=== PATIENT | female | born 1950 | race Caucasian/White ===

== ENCOUNTER → 2016-07-13 | Outpatient (CLI) | payer MEDICARE, OTHER ==
--- NOTE | 2016-07-13 12:25 | US ---
EXAMINATION TYPE: US venous doppler duplex LE DATE OF EXAM: 07/13/2016 10:51 AM COMPARISON: NONE CLINICAL HISTORY: BLE Edema R60.0. Left calf numbness and swelling. SIDE PERFORMED: Bilateral TECHNIQUE: The lower extremity deep venous system is examined utilizing real time linear array sonog deacon with graded compression, doppler sonography and color-flow sonography. VESSELS IMAGED: Common Femoral Vein Deep Femoral Vein Greater Saphenous Vein * Femoral Vein Popliteal Vein Small Saphenous Vein * Proximal Calf Veins (* superficial vessels) Right Leg: Negative for DVT Left Leg: Negative for DVT Grayscale, color Doppler, spectral doppler imaging performed of the deep veins of the lower extremiti es. There is normal flow, compressibility, vascular waveforms bilaterally. IMPRESSION: 1. No diagnostic evidence of DVT.
== END | disposition home or self-care (01) ==
LOC: RADUSWWP 10:08
PROVIDERS: ATTEND Family Medicine
DX: R60.0 Localized edema (principal)
CPT/HCPCS: 93970

== ENCOUNTER → 2016-08-01 | Outpatient (CLI) | payer MEDICARE, OTHER ==
--- NOTE | 2016-08-02 12:49 | MM ---
Reason for exam: screening (asymptomatic). Last mammogram was performed 2 years and 3 months ago. History: Patient is postmenopausal. Physical Findings: A clinical breast exam by your physician is recommended on an annual basis and results should be correlated with mammographic findings. MG Screening Mammo w CAD Bilateral CC and MLO view(s) were taken. Prior study comparison: April 22, 2014, bilateral MG screening mammo w CAD. Finding: There are suspicious heterogeneous, grouped calcifications in the 6 o'clock posterior position of the left breast. May be antiperspirant, repeat CC views. New finding since April 22, 2014. ASSESSMENT: Incomplete: need additional imaging evaluation, BI-RAD 0 RECOMMENDATION: Special view mammogram of both breasts. If lesion persists on supplemental views, image directed ultrasound is recommended. [facility] will attempt to contact patient to return for supplemental views and ultrasound if indicated.
== END | disposition home or self-care (01) ==
LOC: RADMAMWWP 09:51
PROVIDERS: ATTEND Family Medicine
DX: Z12.31 Encounter for screening mammogram for malignant neoplasm of breast (principal)

== ENCOUNTER → 2016-08-04 | Outpatient (CLI) | payer MEDICARE, OTHER ==
--- NOTE | 2016-08-04 08:46 | MM ---
Reason for exam: additional evaluation requested from abnormal screening. Last mammogram was performed less than 1 month ago. History: Patient is postmenopausal. Physical Findings: Nurse did not find any significant physical abnormalities on exam. MG 3D Work Up W/Cad JAE Bilateral CC view(s) were taken. MLO view(s) were taken of the right breast. Prior study comparison: August 01, 2016, bilateral MG screening mammo w CAD. April 22, 2014, bilateral MG screening mammo w CAD. There are scattered fibroglandular densities. Finding: There are typically benign calcifications in both breasts. No significant changes in finding since August 01, 2016 and April 22, 2014. These results were verbally communicated with the patient and result sheet given to the patient on 08/04/16. ASSESSMENT: Probably benign, BI-RAD 3 RECOMMENDATION: Follow-up diagnostic mammogram of both breasts in 6 months.
== END | disposition home or self-care (01) ==
LOC: RADMAMWWP 07:34
PROVIDERS: ATTEND Family Medicine
DX: R92.8 Other abnormal and inconclusive findings on diagnostic imaging of breast (principal)
CPT/HCPCS: G0204; G0279

== ENCOUNTER 2016-12-08 16:34 | Emergency (ER) | payer MEDICARE, OTHER ==
--- NOTE | 2016-12-08 17:33 | ED ---
General Adult HPI - General Chief complaint: Recheck/Abnormal Lab/Rx Stated complaint: Headache, sent by Time Seen by Provider: 12/08/16 17:15 Source: patient, RN notes reviewed Mode of arrival: ambulatory Limitations: no limitations - History of Present Illness Initial comments: Patient is a pleasant 66-year-old female presenting to the emergency Department with headache. Patient states she did have a fall in September. Patient has been having mild headaches since that time. Patient states headaches are never severe. Patient states that time she does have some mild blurry vision. No confusion. No weakness. No speech problems. No history of chronic headaches. Patient states the fall and September she did strike her head however was never hospitalized. Patient did see her doctor today and then had computed tomography scan followed by MRI and there was concern for noted aneurysm. - Related Data Home Medications Medication Instructions Recorded Confirmed Bimatoprost [Lumigan .01% Ophth 1 drop BOTH EYES BID 05/16/14 12/08/16 Soln] Calcium Carbonate/Vitamin D3 1 tab PO BID 05/16/14 12/08/16 [Calcium 600 + Vit D Tablet] Enalapril Maleate [Enalapril 2.5 mg PO DAILY 05/16/14 12/08/16 Maleate] Timolol 0.5% Ophth Soln [Timoptic] 1 drop BOTH EYES BID 05/16/14 12/08/16 metFORMIN HCL [metFORMIN HCL ER] 1,000 mg PO DIRECTED 05/16/14 12/08/16 Aspirin 81 mg PO DAILY 12/08/16 12/08/16 Atorvastatin Calcium [Lipitor] 10 mg PO DAILY 12/08/16 12/08/16 Empagliflozin/Linagliptin 1 tab PO DAILY 12/08/16 12/08/16 [Glyxambi 25 mg-5 mg Tablet] Latanoprost Ophth [Xalatan 0.005%] 1 drops BOTH EYES HS 12/08/16 12/08/16 Allergies Allergy/AdvReac Type Severity Reaction Status Date / Time No Known Allergies Allergy Verified 12/08/16 17:43 Review of Systems ROS Statement: Those systems with pertinent positive or pertinent negative responses have been documented in the HPI. ROS Other: All systems not noted in ROS Statement are negative. Constitutional: Denies: fever Eyes: Denies: eye pain ENT: Denies: ear pain Respiratory: Denies: cough Cardiovascular: Denies: chest pain Endocrine: Denies: fatigue Gastrointestinal: Denies: abdominal pain Genitourinary: Denies: dysuria Musculoskeletal: Denies: back pain Skin: Denies: rash Neurological: Denies: weakness Past Medical History Past Medical History: Diabetes Mellitus Additional Past Medical History / Comment(s): CLOSED HEAD INJURY 2016 History of Any Multi-Drug Resistant Organisms: None Reported Past Surgical History: Hysterectomy, Tonsillectomy Past Psychological History: No Psychological Hx Reported Smoking Status: Never smoker Past Alcohol Use History: None Reported Past Drug Use History: None Reported General Exam Limitations: no limitations General appearance: alert, in no apparent distress Head exam: Present: atraumatic, normocephalic Eye exam: Present: normal appearance, PERRL, EOMI. Absent: nystagmus ENT exam: Present: normal oropharynx Neck exam: Present: normal inspection Respiratory exam: Present: normal lung sounds bilaterally Cardiovascular Exam: Present: regular rate, normal rhythm GI/Abdominal exam: Present: soft. Absent: tenderness Extremities exam: Present: normal inspection Neurological exam: Present: alert, oriented X3, CN II-XII intact. Absent: motor sensory deficit Expanded Patient oriented to: Present: person, place, time Speech: Present: fluid speech Cranial nerves: EOM's Intact: Normal, Facial Sensation: Normal Cerebellar function: Finger to Nose: Normal Sensory exam: Upper Extremity Light Touch: Normal, Lower Extremity Light Touch: Normal Motor strength exam: RUE: 5, LUE: 5, RLE: 5, LLE: 5 Eye Response: (4) open spontaneously Motor Response: (6) obeys commands Verbal Response: (5) oriented Psychiatric exam: Present: normal affect, normal mood Skin exam: Present: normal color Course Vital Signs 12/08/16 16:47 Temperature 97 F L Pulse Rate 109 H Respiratory 18 Rate Blood Pressure 132/61 O2 Sat by Pulse 95 Oximetry - Reevaluation(s) Reevaluation #1: 12/08/16 17:50 Neurology has been paged 12/08/16 18:36 Case was earlier discussed with neurology who does recommend transfer. Case then discussed with emergency department at [facility] who recommends discussing case with interventional neurology. Case was then discussed with Dr. Swanson who does recommend transfer to [facility]. Patient updated and agreeable. Disposition Clinical Impression: Cerebral aneurysm Disposition: OTHER INSTITUTION NOT DEFINED Condition: Serious Referrals: Donald Stanley MD [Primary Care Provider] - 1-2 days Time of Disposition: 18:37 - Out of Hospital Transfer - Req. Specs Out of Hospital Transfer - Requested Specifics: Neurological ICU
[2016-12-08 18:49] LABS: Glucose,Whole Blood 220 mg/dL (75-99)
[2016-12-08 21:39] VITALS: BP 122/61; PULSE 84; RESP 16; TEMP 97.6
== END 2016-12-08 21:38 | disposition other institution (70) ==
LOC: EC 16:34
DX: I67.1 Cerebral aneurysm, nonruptured (principal); E11.9 Type 2 diabetes mellitus without complications; R40.2142 Coma scale, eyes open, spontaneous, at arrival to emergency department; R40.2252 Coma scale, best verbal response, oriented, at arrival to emergency department; R40.2362 Coma scale, best motor response, obeys commands, at arrival to emergency department; Z79.84 Long term (current) use of oral hypoglycemic drugs; Z79.82 Long term (current) use of aspirin; Z79.899 Other long term (current) drug therapy
CPT/HCPCS: 36415; 70450; 70544; 99284

== ENCOUNTER 2016-12-30 14:19 | Emergency (ER) | payer MEDICARE, OTHER ==
[2016-12-30 14:52] LABS: Basophils # (A) 0.1 k/uL (0-0.2); Basophils % (A) 1 %; CH 34.6; CHCM 33.1; Eosinophils # (A) 0.6 k/uL (0-0.7); Eosinophils % (A) 7 %; HCT 44.3 % (34.0-46.0); HGB 14.4 gm/dL (11.4-16.0); Hypochromasia Slight; Luc # (Auto) 0.26; Luc % (Auto) 3; Lymphocytes # (A) 1.2 k/uL (1.0-4.8); Lymphocytes % (A) 14 %; MCH 34.1 pg (25.0-35.0); MCHC 32.6 g/dL (31.0-37.0); MCV 104.7 fL (80.0-100.0); Macrocytosis Slight; Mean Platelet Volume 7.7; Monocytes # (A) 0.6 k/uL (0-1.0); Monocytes % (A) 7 %; Neutrophils % (A) 68 %; Poikilocytosis Slight; RBC 4.23 m/uL (3.80-5.40); RDW 14.2 % (11.5-15.5); WBC 8.8 k/uL (3.8-10.6); WBC (Perox) 8.79
--- NOTE | 2016-12-30 14:54 | ED ---
Neuro HPI - General Chief Complaint: Neuro Symptoms/Deficit Stated Complaint: CVA Symptoms Time Seen by Provider: 12/30/16 14:41 Source: patient, family, RN notes reviewed, old records reviewed Mode of arrival: wheelchair Limitations: no limitations - History of Present Illness Is the patient presenting with stroke symptoms?: Yes Initial Comments: This is a 66-year-old female with a history of having CVA-type symptoms about a week ago she had the beginning coils and a stent placement after discovery of cerebral aneurysms. She presents today with the place and says some slurred speech and some numbness to the right arm. No blurry vision no headache no loss of function to her upper or lower extremities is some garbled speech and the numbness. No fevers chills sweats or other symptoms - Related Data Home Medications: Home Medications Medication Instructions Recorded Confirmed Calcium Carbonate/Vitamin D3 1 tab PO BID 05/16/14 12/30/16 [Calcium 600 + Vit D Tablet] Enalapril Maleate [Enalapril 2.5 mg PO DAILY 05/16/14 12/30/16 Maleate] Timolol 0.5% Ophth Soln [Timoptic] 1 drop BOTH EYES BID 05/16/14 12/30/16 Aspirin 81 mg PO DAILY 12/08/16 12/30/16 Atorvastatin Calcium [Lipitor] 10 mg PO DAILY 12/08/16 12/30/16 Empagliflozin/Linagliptin 1 tab PO DAILY 12/08/16 12/30/16 [Glyxambi 25 mg-5 mg Tablet] Latanoprost Ophth [Xalatan 0.005%] 1 drops BOTH EYES HS 12/08/16 12/30/16 Brimonidine Tartrate [Alphagan P 1 drops BOTH EYES BID 12/30/16 12/30/16 0.2% Ophth Soln] Ticagrelor [Brilinta] 45 mg PO BID 12/30/16 12/30/16 Allergies/Adverse Reactions: Allergies Allergy/AdvReac Type Severity Reaction Status Date / Time No Known Allergies Allergy Verified 12/30/16 15:12 Review of Systems ROS Statement: Those systems with pertinent positive or pertinent negative responses have been documented in the HPI. ROS Other: All systems not noted in ROS Statement are negative. General Exam - General Exam Comments Initial Comments: Pezzer well-developed well-nourished awake alert oriented 3 female Limitations: no limitations General appearance: alert Head exam: Present: atraumatic, normocephalic, normal inspection Eye exam: Present: normal appearance, PERRL, EOMI. Absent: scleral icterus, conjunctival injection, periorbital swelling ENT exam: Present: normal exam, mucous membranes moist Neck exam: Present: normal inspection. Absent: tenderness, meningismus, lymphadenopathy Respiratory exam: Present: normal lung sounds bilaterally. Absent: respiratory distress, wheezes, rales, rhonchi, stridor Cardiovascular Exam: Present: regular rate, normal rhythm, normal heart sounds. Absent: systolic murmur, diastolic murmur, rubs, gallop, clicks GI/Abdominal exam: Present: soft, normal bowel sounds. Absent: distended, tenderness, guarding, rebound, rigid Extremities exam: Present: normal inspection, full ROM, normal capillary refill. Absent: tenderness, pedal edema, joint swelling, calf tenderness Back exam: Present: normal inspection Neurological exam: Present: alert, oriented X3, other (Patient does demonstrate some slight difficulty with speech her NIH stroke scale is 2.) Psychiatric exam: Present: normal affect, normal mood Skin exam: Present: warm, dry, intact, normal color. Absent: rash Stroke MDM - Lab Data Result diagrams: 12/30/16 14:30 12/30/16 14:30 Lab Results 12/30/16 12/30/16 12/30/16 Range/Units 14:28 14:30 14:30 WBC 8.8 (3.8-10.6) k/uL RBC 4.23 (3.80-5.40) m/uL Hgb 14.4 (11.4-16.0) gm/dL Hct 44.3 (34.0-46.0) % MCV 104.7 H (80.0-100.0) fL MCH 34.1 (25.0-35.0) pg MCHC 32.6 (31.0-37.0) g/dL RDW 14.2 (11.5-15.5) % Plt Count 294 (150-450) k/uL Neutrophils % 68 % Lymphocytes % 14 % Monocytes % 7 % Eosinophils % 7 % Basophils % 1 % Neutrophils # 6.0 (1.3-7.7) k/uL Lymphocytes # 1.2 (1.0-4.8) k/uL Monocytes # 0.6 (0-1.0) k/uL Eosinophils # 0.6 (0-0.7) k/uL Basophils # 0.1 (0-0.2) k/uL Hypochromasia Slight Poikilocytosis Slight Macrocytosis Slight PT (9.0-12.0) sec INR (<1.2) APTT (22.0-30.0) sec Sodium (137-145) mmol/L Potassium (3.5-5.1) mmol/L Chloride (98-107) mmol/L Carbon Dioxide (22-30) mmol/L Anion Gap mmol/L BUN (7-17) mg/dL Creatinine (0.52-1.04) mg/dL Est GFR (MDRD) Af Amer (>60 ml/min/1.73 sqM) Est GFR (MDRD) Non-Af (>60 ml/min/1.73 sqM) Glucose (74-99) mg/dL POC Glucose (mg/dL) 344 H (75-99) mg/dL POC Glu Sample Prep Technician ID [place], [place] Calcium (8.4-10.2) mg/dL Total Bilirubin (0.2-1.3) mg/dL AST (14-36) U/L ALT (9-52) U/L Alkaline Phosphatase (38-126) U/L Total Creatine Kinase <20 L (30-135) U/L CK-MB (CK-2) 0.3 (0.0-2.4) ng/mL CK-MB (CK-2) Rel Index Troponin I <0.012 (0.000-0.034) ng/mL Total Protein (6.3-8.2) g/dL Albumin (3.5-5.0) g/dL 12/30/16 12/30/16 Range/Units 14:30 14:30 WBC (3.8-10.6) k/uL RBC (3.80-5.40) m/uL Hgb (11.4-16.0) gm/dL Hct (34.0-46.0) % MCV (80.0-100.0) fL MCH (25.0-35.0) pg MCHC (31.0-37.0) g/dL RDW (11.5-15.5) % Plt Count (150-450) k/uL Neutrophils % % Lymphocytes % % Monocytes % % Eosinophils % % Basophils % % Neutrophils # (1.3-7.7) k/uL Lymphocytes # (1.0-4.8) k/uL Monocytes # (0-1.0) k/uL Eosinophils # (0-0.7) k/uL Basophils # (0-0.2) k/uL Hypochromasia Poikilocytosis Macrocytosis PT 10.2 (9.0-12.0) sec INR 1.0 (<1.2) APTT 22.1 (22.0-30.0) sec Sodium 135 L (137-145) mmol/L Potassium 5.3 H (3.5-5.1) mmol/L Chloride 101 (98-107) mmol/L Carbon Dioxide 23 (22-30) mmol/L Anion Gap 11 mmol/L BUN 24 H (7-17) mg/dL Creatinine 0.80 (0.52-1.04) mg/dL Est GFR (MDRD) Af Amer >60 (>60 ml/min/1.73 sqM) Est GFR (MDRD) Non-Af >60 (>60 ml/min/1.73 sqM) Glucose 334 H (74-99) mg/dL POC Glucose (mg/dL) (75-99) mg/dL POC Glu Sample Prep Technician ID Calcium 9.8 (8.4-10.2) mg/dL Total Bilirubin 0.6 (0.2-1.3) mg/dL AST 31 (14-36) U/L ALT 31 (9-52) U/L Alkaline Phosphatase 54 (38-126) U/L Total Creatine Kinase (30-135) U/L CK-MB (CK-2) (0.0-2.4) ng/mL CK-MB (CK-2) Rel Index Troponin I (0.000-0.034) ng/mL Total Protein 6.7 (6.3-8.2) g/dL Albumin 4.0 (3.5-5.0) g/dL - NIH Stroke Scale 1a. Level of Consciousness: (0) alert 1b. LOC Questions: (0) answers correctly 1c. LOC Commands: (0) performs tasks correctly 2. Best Gaze: (0) normal 3. Visual: (0) no visual loss 4. Facial Palsy: (0) normal symmetrical movement 5a. Motor Arm Left: (0) no drift 5b. Motor Arm Right: (0) no drift 6a. Motor Leg Left: (0) no drift 6b. Motor Leg Right: (0) no drift 7. Limb Ataxia: (0) absent 8. Sensory: (1) mild/moderate sensory loss 9. Best Language: (1) mild/moderate aphasia 10. Dysarthria: (0) normal 11. Extinction/Inattention: (0) no abnormality - Thrombolytic Inclusion/Exclusion Thrombolytic Contraindications: Hx of ICH/AVM/Aneurysms - Medical Decision Making Patient will be transferred to [facility]. She will be a direct admit to Dr. Swanson's service. The patient was determined not to be a candidate for TPA. - EKG Data -: EKG Interpreted by Tx EKG shows normal: sinus rhythm (Sinus rhythm rate 97 appear of 01 36 QRS duration 82 QT since QTC of 340/431 st-t wave changes.) Past Medical History Past Medical History: Diabetes Mellitus Additional Past Medical History / Comment(s): CLOSED HEAD INJURY 2017, glaucoma History of Any Multi-Drug Resistant Organisms: None Reported Past Surgical History: Hysterectomy, Tonsillectomy Additional Past Surgical History / Comment(s): brain aneurism repair Past Psychological History: No Psychological Hx Reported Smoking Status: Never smoker Past Alcohol Use History: None Reported Past Drug Use History: None Reported Course Vital Signs 12/30/16 12/30/16 12/30/16 14:30 14:45 15:00 Temperature 97.8 F 97.8 F 97.7 F Pulse Rate 95 96 102 H Respiratory 16 16 18 Rate Blood Pressure 159/72 141/65 138/67 O2 Sat by Pulse 98 96 96 Oximetry 12/30/16 12/30/16 12/30/16 15:15 15:30 15:45 Temperature 98 F 97.9 F 97.7 F Pulse Rate 98 98 101 H Respiratory 18 17 17 Rate Blood Pressure 146/63 132/59 129/60 O2 Sat by Pulse 98 98 98 Oximetry 12/30/16 16:00 Temperature 98.0 F Pulse Rate 100 Respiratory 16 Rate Blood Pressure 137/74 O2 Sat by Pulse 98 Oximetry - Reevaluation(s) Reevaluation #1: 12/30/16 16:09 The patient return from CAT scan was noted to have stroke scale of 4 which is greater than 2 she started with. She has difficulty with speech and now some difficulty moving her right upper extremity. A code stroke was called. Dr. Ramsay was contacted did discuss the case with him. A computed tomography scan she was done of the head neck. The patient is medicated for TPA she will be transferred to [facility] for further evaluation and possible intervention. Critical Care Time Critical Care Time: Yes Critical Care Time: 31 minutes of critical care time which includes the initial history physical labs x-rays CAT scan reevaluation of the same. Reevaluation patient several occasions. Discussion with the patient and as well as other family members. Discussion with the interventional neurologist. Review of old charting that was available. Documentation of the above. Disposition Clinical Impression: Cerebrovascular accident Disposition: OTHER INSTITUTION NOT DEFINED Condition: Stable Referrals: Donald Stanley MD [Primary Care Provider] - 1-2 days - Out of Hospital Transfer - Req. Specs Out of Hospital Transfer - Requested Specifics: Neurological ICU
[2016-12-30 15:02] LABS: ALT 31 U/L (9-52); AST 31 U/L (14-36); Anion Gap 11 mmol/L; Blood Urea Nitrogen 24 mg/dL (7-17); Calcium 9.8 mg/dL (8.4-10.2); Carbon Dioxide 23 mmol/L (22-30); Chloride 101 mmol/L (98-107); Glucose 334 mg/dL (74-99); Non-African American GFR(MDRD) >60 (>60 ml/min/1.73 sqM); Potassium 5.3 mmol/L (3.5-5.1); Sodium 135 mmol/L (137-145); Total Bilirubin 0.6 mg/dL (0.2-1.3); Total Protein 6.7 g/dL (6.3-8.2)
[2016-12-30 15:03] LABS: Alkaline Phosphatase 54 U/L (38-126)
[2016-12-30 15:06] LABS: Creatine Kinase <20 U/L (30-135); Partial Thromboplastin Time 22.1 sec (22.0-30.0); Prothrombin Time 10.2 sec (9.0-12.0)
--- NOTE | 2016-12-30 15:09 | XR ---
EXAMINATION TYPE: XR chest 2V DATE OF EXAM: 12/30/2016 COMPARISON: NONE HISTORY: Altered mental status TECHNIQUE: Frontal and lateral views of the chest are obtained. FINDINGS: The patient is rotated. Pulmonary artery appears prominently as does the right hilum. There is no focal air space opacity, pleural effusion, or pneumothorax seen. The cardiac silhouette size is within normal limits. The osseous structures are intact. IMPRESSION: Rotated exam. Question underlying pulmonary artery hypertension. Follow-up PA and latera l chest x-ray recommended when patient is clinically stable. Questionable right hilar prominence.
[2016-12-30 15:11] LABS: Glucose,Whole Blood 344 mg/dL (75-99)
--- NOTE | 2016-12-30 15:12 | CT ---
EXAMINATION TYPE: CT brain wo con for TPA DATE OF EXAM: 12/30/2016 COMPARISON: 12/08/2016 INDICATION: Right sided numbness 2 1/2 hours. DLP: 1088.00 mGycm, Automated exposure control for dose reduction was used. CONTRAST: None CT of the brain is performed utilizing 3 mm thick sections through the posterior fossa and 3 mm thick sections through the remaining calvarium. Study is performed within 24 hours of arrival to the hosp ital. There is metallic scatter artifact from prior aneurysm repair. This may cause some mild limitation. No abnormal hyperdensity is present to suggest an acute intracranial hemorrhage. No mass lesion is evident. No acute infarcts are evident. There are some scattered areas of hypodensity in the periventricular w ryder matter, likely on the basis of chronic white matter ischemic changes. Ventricles and sulci are appropriate for the patient age. Paranasal sinuses and mastoid air cells within the [id number] are clear. IMPRESSIONS: 1. Prior aneurysm repair since November 2016. 2. No acute intracranial process. 3. Stable chronic white matter ischemic type changes.
[2016-12-30] MEDS ORDERED: SODIUM CHLORIDE 0.9% 1,000 ML IV STA (15:15)
[2016-12-30 15:20] LABS: Creatine Kinase MB 0.3 ng/mL (0.0-2.4); Troponin I <0.012 ng/mL (0.000-0.034)
[2016-12-30] MEDS ORDERED: RX INFO: IV CONTRAST WAS GIVEN 1 EACH MISC MISCELLANE PRN (15:27)
--- NOTE | 2016-12-30 16:14 | CT ---
EXAMINATION TYPE: CT angio head neck DATE OF EXAM: 12/30/2016 HISTORY: Right sided numbness today. COMPARISON: MR angiogram of the brain 12/08/[address] brain 12/30/2016 CT DLP: 205.40 mGycm. Autom ated Exposure Control for Dose Reduction was Utilized. TECHNIQUE: CTA scan of the neck and hopi of [place] is performed with IV Contrast, patient injected with 65 mL of Omnipaque 350, axial images are obtained, coronal and sagittal reformatted images are reviewed. Three-D reconstructed images are created on an independent workstation and reviewed. FINDINGS: Carotid/Vascular Structures: There are artifacts due to correlating of the left internal carotid roscoe ry aneurysm noted on previous exam. Small aneurysm again noted within the middle cerebral artery on t he right as on prior MRA.. The transverse aorta, innominate artery, left and right common carotid arteries, left and right subcl sujatha arteries are patent. The vertebral arteries are patent and codominant. Internal and external ca rotid arteries are patent, there is no significant stenosis involving the internal carotid arteries. No evident dissection. Other: Superior mediastinal lymphadenopathy is present. There is a right-sided pleural effusion. IMPRESSION: Right middle cerebral artery aneurysm. No significant stenosis of the proximal internal c arotid arteries.
[2016-12-30 17:09] VITALS: BP 146/89; PULSE 99; RESP 15; TEMP 98.7
== END 2016-12-30 17:10 | disposition other institution (70) ==
LOC: EC 14:19
DX: I63.9 Cerebral infarction, unspecified (principal); E11.9 Type 2 diabetes mellitus without complications; Z79.82 Long term (current) use of aspirin; Z79.84 Long term (current) use of oral hypoglycemic drugs; Z79.899 Other long term (current) drug therapy
CPT/HCPCS: 99291 ×2; 96360 ×2; 36415; 93005; 80053; 82550; 82553; 84484; 85025; 85610; 85730; 71020; 70496; 70450; 70498; Q9967

== ENCOUNTER → 2017-01-10 | Outpatient (CLI) | payer MEDICARE, OTHER ==
[2017-01-10 15:52] LABS: ALT 34 U/L (9-52); AST 20 U/L (14-36); Alkaline Phosphatase 62 U/L (38-126); Anion Gap 12 mmol/L; Blood Urea Nitrogen 34 mg/dL (7-17); Calcium 10.1 mg/dL (8.4-10.2); Carbon Dioxide 23 mmol/L (22-30); Chloride 101 mmol/L (98-107); Glucose 330 mg/dL (74-99); Non-African American GFR(MDRD) >60 (>60 ml/min/1.73 sqM); Potassium 5.3 mmol/L (3.5-5.1); Sodium 136 mmol/L (137-145); Total Bilirubin 0.5 mg/dL (0.2-1.3); Total Protein 6.8 g/dL (6.3-8.2)
== END | disposition home or self-care (01) ==
LOC: LABWHC1 14:51
PROVIDERS: ATTEND Nurse Practitioner Adult Health
DX: D86.9 Sarcoidosis, unspecified (principal)
CPT/HCPCS: 36415; 80053; 82164; 85652

== ENCOUNTER → 2018-01-02 | Outpatient (CLI) | payer MEDICARE, OTHER ==
--- NOTE | 2018-01-02 16:03 | BD ---
EXAMINATION TYPE: Axial Bone Density DATE OF EXAM: 01/02/2018 COMPARISON: 04/22/2014 CLINICAL HISTORY: Height: 60.7 IN Weight: 142 LBS FRAX RISK QUESTIONS: History of Fracture in Adulthood: LEFT HAND AGE 62 Secondary Osteoporosis: Postmenopausal female 3. Menopause before 45: YES TOTAL HYST AGE 36 RISK FACTORS HISTORY OF: Active: YES Diet low in dairy products/other sources of calcium: YES Postmenopausal woman: AGE 36 MEDICATIONS: Additional Medications: CALCIUM, VIT D, VICTOZA, METOPROLOL, ENALAPRIL, ATORVASTATIN, GLIMEPIRIDE, A SPIRIN, LATANOPROST, BRIMONIDINE,TIMOLOL EXAM MEASUREMENTS: Bone mineral densitometry was performed using the [employer] System. Bone mineral density as measured about the Lumbar spine is: ----- L1-L4(G/cm2): 1.140 T Score Values are as follows: ----- L2: -1.8 ----- L3: 0.0 ----- L4: 0.9 ----- L1-L4: -0.3 Bone mineral density has: Decreased -4.6% since study of: 04/22/2014 Bone mineral density about the R hip (g/cm2): 0.842 Bone mineral density about the L hip (g/cm2): 1.203 T Score values are as follows: -----R Neck: -1.4 -----L Neck: 1.2 -----R Total: -1.1 -----L Total: -0.6 Bone mineral density has: Decreased -13.9% since study of: 04/22/2014 IMPRESSION: Normal (Values between +1 and -1 indicate normal bone mass). Consider repeating this study in 5 year s or sooner if there is some new clinical indication. NOTE: T-SCORE=SD OF THE YOUNG ADULT MEAN.
--- NOTE | 2018-01-04 10:01 | MM ---
Reason for exam: screening (asymptomatic). Last mammogram was performed 1 year and 5 months ago. History: Patient is postmenopausal. MG Screening Mammo w CAD Bilateral CC and MLO view(s) were taken. Prior study comparison: August 04, 2016, bilateral MG 3d work up w/cad JAE. August 01, 2016, bilateral MG screening mammo w CAD. The breast tissue is almost entirely fat. There is new linier arranged heterogeneous calcification in the right breast 6 o'clock position. Finding is new when compared to 08/04/16 study. ASSESSMENT: Incomplete: need additional imaging evaluation, BI-RAD 0 RECOMMENDATION: Special view mammogram of the right breast.
== END ==
LOC: RADMAMWWP 13:11
PROVIDERS: ATTEND Family Medicine
DX: Z12.31 Encounter for screening mammogram for malignant neoplasm of breast (principal); Z78.0 Asymptomatic menopausal state
CPT/HCPCS: 77067; 77080

== ENCOUNTER → 2018-01-23 | Outpatient (CLI) | payer MEDICARE, OTHER ==
--- NOTE | 2018-01-23 11:31 | MM ---
Reason for exam: additional evaluation requested from abnormal screening. Last mammogram was performed 1 month ago. History: Patient is postmenopausal. Physical Findings: Nurse did not find any significant physical abnormalities on exam. MG Work Up Mamm w CAD RT CC and MLO view(s) were taken of the right breast. Prior study comparison: January 02, 2018, bilateral MG screening mammo w CAD. August 04, 2016, bilateral MG 3d work up w/cad JAE. There are scattered fibroglandular densities. Finding: There are typically benign skin calcifications in the right breast from inframammary. No significant changes in finding since January 02, 2018 and August 04, 2016. These results were verbally communicated with the patient and result sheet given to the patient on 01/23/18. ASSESSMENT: Probably benign, BI-RAD 3 RECOMMENDATION: Follow-up diagnostic mammogram of the right breast in 6 months.
== END | disposition home or self-care (01) ==
LOC: RADMAMWWP 10:14
PROVIDERS: ATTEND Family Medicine
DX: R92.8 Other abnormal and inconclusive findings on diagnostic imaging of breast (principal)
CPT/HCPCS: 77065

== ENCOUNTER 2018-04-04 06:58 | Day surgery (SDC) | payer MEDICARE, OTHER ==
[2018-04-02 12:01] VITALS: BMI 26.4
[~2018-04-04 06:58] MED LIST: DEXAMETHASONE SOD PHOSPHATE 10 MG/ML 1 ML VIAL IV ONE; HYDROmorphone 0.5 MG/0.5 ML SYRINGE IVP PRN; LACTATED RINGERS 1,000 ML IV SCH; LIDOCAINE 1% 20 ML VIAL (10MG/ML) FOR IV START INTRADERMA PRN; MIDAZOLAM (PF) 2 MG/2 ML VIAL IV PRN; MOXIFLOXACIN HCL 0.5% DROPS 3 ML BTL OP ONE; ONDANSETRON 4 MG/2 ML VIAL IVP ONE; SCOPOLAMINE 1.5MG/72HR PATCH TRANSDERM ONE; TETRACAINE 0.5% OPHTH (PF) DROPS 4 ML BTL OP ONE; TIMOLOL 0.5% OPHTH DROPS 5 ML BTL OP ONE
[2018-04-04 07:23] VITALS: RESP 16; TEMP 97
[2018-04-04] MEDS: PHENYLEPHRINE 2.5% OPHTH DRP 2ML OP NR ×3 (07:26→07:41)
[2018-04-04] MEDS: CYCLOPENTOLATE 1% OPHTH SOLN 2 ML BTL OP ONE ×3 (07:29→07:44)
[2018-04-04 07:47] LABS: Glucose,Whole Blood 313 mg/dL (75-99)
[2018-04-04] MEDS ORDERED: INSULIN ASPART (NovoLOG) 100 UNIT/ML VIAL SQ ONE (07:53)
[2018-04-04] MEDS ORDERED: LIDOCAINE 1% (PF) 10MG/ML VIAL SQ ONE (08:06)
[2018-04-04] MEDS ORDERED: BALANCED SALT IRRIG SOLN COMB2 15 ML IRRIG.SOLN IRRIGATION ONE (08:06)
[2018-04-04] MEDS ORDERED: DUOVISC KIT (GREEN BOX) INTRAOCULA ONE (08:06)
[2018-04-04] MEDS ORDERED: MIDAZOLAM 2 MG/2 ML VIAL ONE (08:08)
[2018-04-04] MEDS ORDERED: EPINEPHrine (PF) 0.3 ML in BALANCED SALT IRRIG SOLN COMB2 500 ML IRRIGATION ONE (08:15)
[2018-04-04] MEDS ORDERED: TRYPAN BLUE 0.06% SYRINGE 0.5 ML SYRINGE INTRAOCULA ONE (08:22)
--- NOTE | 2018-04-04 08:47 | P.OP ---
Date of Procedure: 04/04/18 Preoperative Diagnosis: NS & CS & POAG Postoperative Diagnosis: same Procedure(s) Performed: PIOL & goniotomy OS Implants: PCB00 22.00 Anesthesia: MAC Surgeon: Lyndon Robledo Estimated Blood Loss (ml): 2 Pathology: none sent Condition: stable Disposition: same day Indications for Procedure: blurry vision and poor glaucoma control Operative Findings: no complications
[2018-04-04 08:50] VITALS: PULSE 94
[2018-04-04 09:12] VITALS: BP 113/55
[2018-04-04 09:14] LABS: Glucose,Whole Blood 259 mg/dL (75-99)
--- NOTE | 2018-04-04 20:19 | OP ---
OPERATIVE REPORT DATE OF SURGERY: April 04, 2018. PROCEDURE PERFORMED: Phacoemulsification of cataract and intraocular lens implant of the left eye with goniotomy of the left eye. PREOPERATIVE DIAGNOSES: Nuclear sclerosis/cortical sclerosis and moderate stage open-angle glaucoma. POSTOPERATIVE DIAGNOSES: Nuclear sclerosis/cortical sclerosis and moderate stage open-angle glaucoma. SURGEON: Dr. Lyndon Robledo. ANESTHESIA: Topical. ESTIMATED BLOOD LOSS: 2 mL. SPECIMEN: Taken none. NARRATIVE: After obtaining the appropriate consent, the patient was brought to the operating room. There she was placed on cardiac monitoring, prepped and draped in the usual sterile manner. She was approached from her left temporal side, placed under cardiac monitoring and then prepped and draped in the usual sterile manner. First thing of note was that the pupil dilation was no more than about 4 mm in diameter at the beginning of the case. A paracentesis was performed at the 5 o'clock position with a MVR blade and 1% lidocaine MPF 50/50 mix with balanced salt solution was injected into the anterior chamber. This was followed by a temporal incision using a 2.5 mm keratome in a Langerman's fashion. A quick examination of the trabecular meshwork when the patient's head was rotated to her right, proved that the trabecular meshwork was difficult to identify. Trypan blue was instilled into the eye and left in place for approximately 1 minute. Once the trypan blue was irrigated away, the trabecular meshwork was easily identified. Viscoat was used to stabilize the anterior chamber and a goniotomy using the bryan and meet method was performed on the nasal aspect of the patient's anterior drainage angle. She was then rotated into the normal supine position and a 6.25 Malyugin ring was inserted to provide better dilation of the pupil and access to the cataract underneath. A cystotome was used to start a continuous tear capsulorrhexis which was then completed using the Utrata forceps. Hydrodissection and hydrodelineation of the lens was accomplished with balanced salt solution. Phacoemulsification of the lens utilizing phaco chop was accomplished in 29.11 seconds at 18% power. Additional Xylocaine MPF was instilled into the anterior chamber. This was followed by removal of the remaining cortex under irrigation and aspiration along with careful polishing of the posterior capsule in capsule vacuum mode. Provisc was then used to stabilize the capsular bag and an TY PCB 0 0 22.0 diopter posterior chamber intraocular lens was then inserted into the capsular bag without difficulty. The remaining viscoelastic was removed from the anterior chamber and as well as possible from around the intra-ocular lens after removal of the Malyugin ring. The eye was brought to normal intraocular pressure through the paracentesis port. The wounds were hydrated slightly with balanced salt solution and the incisions were confirmed watertight. She then received 2 drops of 0.5% timolol followed by 2 drops of moxifloxacin, was then lightly patched and shielded in the usual manner. There were no complications from the procedure. She tolerated the procedure well and was returned to outpatient recovery in good condition. MMODL / JAZMINEN: [id number] /
== END 2018-04-04 09:34 | disposition home or self-care (01) ==
LOC: OR 06:58
PROVIDERS: ATTEND Ophthalmology
DX: E11.36 Type 2 diabetes mellitus with diabetic cataract (principal); H25.13 Age-related nuclear cataract, bilateral; H25.012 Cortical age-related cataract, left eye; E11.39 Type 2 diabetes mellitus with other diabetic ophthalmic complication; H42 Glaucoma in diseases classified elsewhere; H40.1132 Primary open-angle glaucoma, bilateral, moderate stage; H52.223 Regular astigmatism, bilateral; H18.423 Band keratopathy, bilateral; H04.123 Dry eye syndrome of bilateral lacrimal glands; H52.13 Myopia, bilateral; H52.4 Presbyopia; I69.328 Other speech and language deficits following cerebral infarction; I69.398 Other sequelae of cerebral infarction; G43.909 Migraine, unspecified, not intractable, without status migrainosus; Z79.84 Long term (current) use of oral hypoglycemic drugs; Z79.899 Other long term (current) drug therapy; Z79.82 Long term (current) use of aspirin; Z90.710 Acquired absence of both cervix and uterus
CPT/HCPCS: 66984; 65820; C1780; J2250; J0171; J2001

== ENCOUNTER 2018-05-02 06:46 | Day surgery (SDC) | payer MEDICARE, OTHER ==
[2018-04-26 13:48] VITALS: BMI 26.4
[2018-05-02 07:14] VITALS: RESP 16; TEMP 97.4
[2018-05-02] MEDS: CYCLOPENTOLATE 1% OPHTH SOLN 2 ML BTL OP ONE ×3 (07:15→07:27)
[2018-05-02] MEDS: PHENYLEPHRINE 2.5% OPHTH DRP 2ML OP NR ×3 (07:18→07:31)
[2018-05-02 07:26] LABS: Glucose,Whole Blood 230 mg/dL (75-99)
[2018-05-02] MEDS ORDERED: MIDAZOLAM 2 MG/2 ML VIAL ONE (08:08)
[2018-05-02] MEDS ORDERED: fentaNYL (PF) 50 MCG/ML 2 ML AMP ONE (08:08)
[2018-05-02] MEDS ORDERED: DUOVISC KIT (GREEN BOX) INTRAOCULA ONE (08:27)
[2018-05-02] MEDS ORDERED: LIDOCAINE 1% (PF) 10MG/ML VIAL SQ ONE (08:27)
[2018-05-02] MEDS ORDERED: BALANCED SALT IRRIG SOLN COMB2 15 ML IRRIG.SOLN IRRIGATION ONE (08:27)
[2018-05-02] MEDS ORDERED: EPINEPHrine (PF) 0.3 ML in BALANCED SALT IRRIG SOLN COMB2 500 ML IRRIGATION ONE (08:29)
--- NOTE | 2018-05-02 08:58 | P.OP ---
Date of Procedure: 05/02/18 Preoperative Diagnosis: NS & CS & POAG Postoperative Diagnosis: same Procedure(s) Performed: PIOL & goniotomy & Malyugin ring implant Implants: PCB00 22.00 & temp malyugin ring Anesthesia: MAC Surgeon: Lyndon Robledo Estimated Blood Loss (ml): 0 Pathology: none sent Disposition: same day Indications for Procedure: No complications Operative Findings: blurry vision and glaucoma
[2018-05-02 09:21] VITALS: BP 111/61; PULSE 89
[2018-05-02 10:13] LABS: Glucose,Whole Blood 228 mg/dL (75-99)
--- NOTE | 2018-05-02 21:02 | OP ---
OPERATIVE REPORT DATE OF SURGERY: May 02, 2018. PROCEDURE PERFORMED: Phacoemulsification of cataract, intraocular lens implant and goniotomy of the right eye. PREOPERATIVE DIAGNOSES: Nuclear sclerosis, cortical sclerosis. Primary open-angle glaucoma, moderate stage. POSTOPERATIVE DIAGNOSES: Nuclear sclerosis, cortical sclerosis. Primary open angle glaucoma, moderate stage. SURGEON: Dr. Lyndon Robledo. ANESTHESIA: Topical. ESTIMATED BLOOD LOSS: None. SPECIMEN: Taken none. NARRATIVE: After obtaining the appropriate consent, the patient was brought to the operating room. There she was placed under cardiac monitoring, prepped and draped in the usual sterile manner. She was approached from the right temporal side and at the 11 o'clock position an MVR blade was used to create a paracentesis port. 1% Xylocaine MPF 50/50 mix with balanced salt solution was injected into the anterior chamber. This was followed by injection of Trypan blue to stain the trabecular meshwork. This was left in place for approximately 1 minute and then irrigated away. Viscoat was then used to stabilize the anterior chamber as well as a small dollop placed on the cornea. At the 9 o'clock position, a 2.5 mm keratome was used to create a self-sealing corneal flap incision in Langerman's fashion. The patient was then asked to turn her head approximately 45 degrees to her left ago. A gonio prism was placed on the patient's eye and the trabecular mesh was identified. A [place] dual blade goniotomy knife was used to remove the trabecular meshwork in a bryan and meet fashion. A small amount of blood was encountered as expected with the procedure. Once this was accomplished, the patient was returned to the normal supine position and due to her persistent miosis, point of approximately 4 mm, a 6.25 mm Malyugin ring was used to dilate the pupil for a more adequate and safer approach to removal of the cataract. Once this ring was placed, a cystotome was introduced to begin a continuous tear capsulorrhexis which was completed using the Utrata forceps. Hydrodissection and hydrodelineation of the lens was accomplished with balanced salt solution. Phacoemulsification of the lens utilizing phaco chop was accomplished in 19.77 seconds at 12% power. Additional Xylocaine MPF was instilled into the anterior chamber. This was followed by removal of the remaining cortex under irrigation, aspiration along with careful polishing of the posterior capsule in the capsule vacuum mode. Provisc was then used to stabilize the capsular bag and an TY PCB 0 0 22.0 diopter posterior chamber intraocular lens was then placed into the capsular bag without difficulty. The Malyugin ring was then disinserted from the pupillary sphincter and irrigation aspiration was used to remove the remaining viscoelastic from within the anterior chamber and as well as possible from around the intra-ocular lens. The eye was then brought to normal intraocular pressures through the paracentesis port with balanced salt solution and watertight integrity was confirmed of the incisions. She then received 2 drops of 0.5% timolol followed by 2 drops of moxifloxacin and she was then lightly patched and shielded in the usual manner. There were no complications from the procedure. She tolerated the procedure well, was returned to outpatient recovery in good condition. HOLDEN / KAREN: [id number] /
== END 2018-05-02 09:28 | disposition home or self-care (01) ==
LOC: OR 06:46
PROVIDERS: ATTEND Ophthalmology
DX: E11.39 Type 2 diabetes mellitus with other diabetic ophthalmic complication (principal); E11.36 Type 2 diabetes mellitus with diabetic cataract; H42 Glaucoma in diseases classified elsewhere; H40.1112 Primary open-angle glaucoma, right eye, moderate stage; H52.223 Regular astigmatism, bilateral; H18.423 Band keratopathy, bilateral; H04.123 Dry eye syndrome of bilateral lacrimal glands; H52.13 Myopia, bilateral; H52.4 Presbyopia; I10 Essential (primary) hypertension; E78.5 Hyperlipidemia, unspecified; Z79.899 Other long term (current) drug therapy; Z79.82 Long term (current) use of aspirin; Z79.4 Long term (current) use of insulin; Z98.42 Cataract extraction status, left eye; Z96.1 Presence of intraocular lens; Z86.73 Personal history of transient ischemic attack (TIA), and cerebral infarction without residual deficits; Z97.3 Presence of spectacles and contact lenses
CPT/HCPCS: 66982; 65820; C1780; J2250; J0171; J3010; J2001

== ENCOUNTER → 2018-09-17 | Outpatient (CLI) | payer MEDICARE, OTHER ==
--- NOTE | 2018-09-18 10:03 | MM ---
Reason for exam: follow-up at short interval from prior study. Last mammogram was performed 8 months ago. History: Patient is postmenopausal. Physical Findings: Nurse did not find any significant physical abnormalities on exam. MG Diagnostic Mammo RT w CAD CC and MLO view(s) were taken of the right breast. Prior study comparison: January 23, 2018, right breast MG work up mamm w CAD RT. January 02, 2018, bilateral MG screening mammo w CAD. No discrete abnormality. ASSESSMENT: Benign, BI-RAD 2 RECOMMENDATION: Return to routine screening mammogram schedule for both breasts.
== END | disposition home or self-care (01) ==
LOC: RADMAMWWP 10:10
PROVIDERS: ATTEND Family Medicine
DX: R92.8 Other abnormal and inconclusive findings on diagnostic imaging of breast (principal)
CPT/HCPCS: 77065

== ENCOUNTER → 2018-10-17 | Outpatient (CLI) | payer MEDICARE, OTHER ==
[~2018-10-17] MED LIST changes: -DEXAMETHASONE SOD PHOSPHATE 10 MG/ML 1 ML VIAL IV ONE; -HYDROmorphone 0.5 MG/0.5 ML SYRINGE IVP PRN; -LACTATED RINGERS 1,000 ML IV SCH; -LIDOCAINE 1% 20 ML VIAL (10MG/ML) FOR IV START INTRADERMA PRN; -MIDAZOLAM (PF) 2 MG/2 ML VIAL IV PRN; -MOXIFLOXACIN HCL 0.5% DROPS 3 ML BTL OP ONE; -ONDANSETRON 4 MG/2 ML VIAL IVP ONE; +REGADENOSON 0.4 MG/5 ML SYRINGE IV ONE; -SCOPOLAMINE 1.5MG/72HR PATCH TRANSDERM ONE; -TETRACAINE 0.5% OPHTH (PF) DROPS 4 ML BTL OP ONE; -TIMOLOL 0.5% OPHTH DROPS 5 ML BTL OP ONE
--- NOTE | 2018-10-17 08:49 | XR ---
EXAMINATION TYPE: XR chest 2V DATE OF EXAM: 10/17/2018 COMPARISON: 01/10/2017 TECHNIQUE: PA and lateral views submitted. HISTORY: Shortness of breath FINDINGS: There is a small right effusion and right middle lobe infiltrate. The pulmonary arteries are enlarged . There is no pneumothorax. Interstitium prominent. Heart size normal. Hypertrophic and degenerative change of the spine. IMPRESSION: 1. Small right effusion with right lower lobe and middle lobe infiltrate. Correlate for pneumonia oth erwise consider venous congestion.
--- NOTE | 2018-10-17 10:01 | ECHOF ---
Referral Reason:R06.09 Other forms of dyspnea MEASUREMENTS -------- HEIGHT: 154.9 cm WEIGHT: 68.9 kg BP: IVSd: 1.3 cm (0.6 - 1.1) LVIDd: 3.2 cm (3.9 - 5.3) LVPWd: 1.3 cm (0.6 - 1.1) IVSs: 1.5 cm LVIDs: 3.4 cm LVPWs: 1.2 cm LA Diam: 4.3 cm (2.7 - 3.8) LAESV Index (A-L): 29.38 ml/m Ao Diam: 2.5 cm (2.0 - 3.7) LA Diam: 2.7 cm (2.7 - 3.8) MV EXCURSION: 13.254 mm (> 18.000) MV EF SLOPE: 114 mm/s (70 - 150) EPSS: 0.5 cm MV E Dwain: 0.33 m/s MV A Dwain: 0.79 m/s MV E/A Ratio: 0.41 RAP: 5.00 mmHg RVSP: 19.83 mmHg FINDINGS -------- Sinus rhythm. This was a technically good study. The left ventricular size is normal. There is mild concentric left ventricular hypertrophy. Overa ll left ventricular systolic function is normal with, an EF between 55 - 60 %. The diastolic fillin g pattern is normal for the age of the patient 15.69. The right ventricle is normal in size. The left atrium is mildly dilated. LA is midly dilated 29-33ml/m2. The right atrial size is normal. Aneurysmal Interatrial septum. There is mild aortic valve sclerosis. There is no evidence of aortic regurgitation. Mild mitral annular calcification present. Mild mitral regurgitation is present. Mild tricuspid regurgitation present. There is no evidence of pulmonary hypertension. The right v entricular systolic pressure, as measured by Doppler, is 19.83mmHg. There is no pulmonic regurgitation present. The aortic root size is normal. There is no pericardial effusion. CONCLUSIONS -------- 1. Sinus rhythm. 2. This was a technically good study. 3. The left ventricular size is normal. 4. There is mild concentric left ventricular hypertrophy. 5. Overall left ventricular systolic function is normal with, an EF between 55 - 60 %. 6. The diastolic filling pattern is normal for the age of the patient 15.69 7. The right ventricle is normal in size. 8. The left atrium is mildly dilated. 9. LA is midly dilated 29-33ml/m2. 10. The right atrial size is normal. 11. Aneurysmal Interatrial septum. 12. There is mild aortic valve sclerosis. 13. Mild mitral annular calcification present. 14. Mild mitral regurgitation is present. 15. Mild tricuspid regurgitation present. 16. There is no evidence of pulmonary hypertension. 17. The right ventricular systolic pressure, as measured by Doppler, is 19.83mmHg. 18. There is no pulmonic regurgitation present. 19. The aortic root size is normal. 20. There is no pericardial effusion. MEDICAL RECORDS TECHNICIAN: Estela Richard RDCS
--- NOTE | 2018-10-17 11:13 | EST ---
EXERCISE STRESS DATE OF SERVICE: 10/17/2018 AGE: 68 SEX: Female HT: 5'1" WT: 152 pounds PROTOCOL: Lexiscan Cardiolite STAGE: DURATION OF EXERCISE: HEART RATE REST: 88 BLOOD PRESSURE REST: /56 MAXIMUM HEART RATE ACHIEVED: 120 MAXIMUM BLOOD PRESSURE: 136/54 85% MPHR: 128 100% MPHR: 151 METS: INDICATIONS: Shortness of breath CLINICAL INFORMATION: Baseline EKG shows sinus rhythm, normal axis, normal intervals. Patient was given intravenous Lexiscan as per protocol. Did not have chest pain or diagnostic ST-segment depression. CONCLUSIONS: 1. Negative stress test by EKG criteria. 2. Cardiolite portion of the stress test will be reported separately. MMODL / IJN: [id number] /
--- NOTE | 2018-10-19 08:49 | NM ---
EXAMINATION TYPE: NM stress lexiscan cardiolite DATE OF EXAM: 10/17/2018 COMPARISON: NONE HISTORY: Chest pain TECHNIQUE: After the intravenous administration of 9.5 mCi Tc 99m Sestamibi - Cardiolite resting SPE CT images acquired 45 minutes post injection. The patient received 0.4mg Lexiscan, 26.8 mCi Tc 99m Sestamibi - Stress images obtained FINDINGS: Review of stress and rest SPECT images demonstrates no distinct perfusion abnormality. Gated analysi s shows normal wall motion with an estimated left ventricular ejection fraction of 62 %. IMPRESSION: 1. There is artifact which limits evaluation of the inferior wall and inferior septum likely related to gastrointestinal uptake. Visualized portions demonstrate no evidence of stress-induced reversibili ty. 2. Ejection fraction of 62%.
== END | disposition home or self-care (01) ==
LOC: RADNMMAIN 08:10
PROVIDERS: ATTEND Family Medicine
DX: I08.1 Rheumatic disorders of both mitral and tricuspid valves (principal); J90 Pleural effusion, not elsewhere classified; R91.8 Other nonspecific abnormal finding of lung field
CPT/HCPCS: 93017; 93306; 71046; 78452; A9500

== ENCOUNTER → 2018-11-13 | Outpatient (CLI) | payer MEDICARE, OTHER ==
--- NOTE | 2018-11-15 06:26 | CT ---
EXAMINATION TYPE: CT chest w con DATE OF EXAM: 11/13/2018 COMPARISON: Radiograph 10/17/2018 HISTORY: 68-year-old female f/u pleural effusion TECHNIQUE: Contiguous axial scanning of the chest after the administration of 100 mL of Isovue 300. Coronal/sagittal reconstructions performed. CT DLP: 293.5mGycm. Automatic exposure control utilized for a dose reduction. FINDINGS: The heart is normal size without pericardial effusion. Aorta normal caliber with mild atherosclerotic arch calcifications and conventional arch vessel branc dionte anatomy. The main right and left pulmonary arteries are normal caliber. There is mediastinal and bilateral hilar lymphadenopathy: Upper right paratracheal lymph node 1.3 cm. Left superior mediastinal lymph nodes up to 9 mm. Right tracheobronchial angle lymph node 1.1 cm. Left tracheobronchial angle lymph node 1.3 cm. Subcarinal lymph node 1.5 cm. AP window 1.3 cm. Right and left hilar nodes 1.3 and 1.5 cm, respectively. There is segmental collapse of the right middle lobe possibly secondary to extrinsic mass effect at t he right hilum. Small to moderate layering right pleural effusion. Otherwise, no other consolidation. Tiny hiatal hernia. Visualized upper abdomen shows no other gross abnormality. Bones: DISH throughout the mid to lower thoracic spine. IMPRESSION: 1. Mediastinal and bilateral hilar lymphadenopathy measuring up to 1.5 cm. Some differential consider ations include systemic mycobacterial/fungal infection, other granulomatous diseases such as sarcoido sis, lymphoma, metastatic disease, connective tissue disorders, and pneumoconiosis in the correct cli nical setting. 2. Suspect right middle lobe syndrome with partial right middle lobe collapse from the prominent righ t hilar soft tissue. 3. Small to moderate right effusion.
== END | disposition home or self-care (01) ==
LOC: RADCTMAIN 15:24
PROVIDERS: ATTEND Family Medicine
DX: J90 Pleural effusion, not elsewhere classified (principal); R59.1 Generalized enlarged lymph nodes
CPT/HCPCS: 82565; 84520; 71260; 36415; Q9967

== ENCOUNTER → 2018-11-30 | Outpatient (CLI) | payer MEDICARE, OTHER ==
--- NOTE | 2018-12-04 07:50 | PE ---
Nuclear medicine PET/CT HISTORY: Abnormal findings lung field Patient received 12.5 mCi F-18 FDG intravenously in delayed scanning was performed from the skull bas e to the mid thighs. Localization and attenuation correction CT scan was performed. Correlation chest CT 11/13/2018 Neck and chest: Right pleural effusion is again noted. Retrocaval pretracheal mediastinal adenopathy, bilateral hilar adenopathy, subcarinal adenopathy again noted. Only mild hypermetabolic uptake howev er, SUV 3.1-3.6. No cervical or supraclavicular adenopathy. Postop changes are noted within the brain incidentally. ABDOMEN: No evident liver mass. There is some uptake noted near the level of the head of the pancreas and anterior to the inferior vena cava and additionally adjacent to the second and third portion of the duodenum, possibly some local adenopathy is present. SUV is. Anterior abdominal wall hernia seen at approximately the level of the umbilicus containing colon with out evident obstruction. There is a cystic left adnexal lesion measuring 4.4 cm without associated hy permetabolic uptake. Osseous structures are remarkable for degenerative disc changes, facet arthropathy and lumbar spine.. IMPRESSION: Mild uptake associated with patient's adenopathy. Pleural effusion on the right. Indeterm inate left adnexal mass. Abdominal wall hernia.
== END | disposition home or self-care (01) ==
LOC: RADPETMAIN 16:53
PROVIDERS: ATTEND Internal Medicine Critical Care Medicine
DX: J90 Pleural effusion, not elsewhere classified (principal); K43.9 Ventral hernia without obstruction or gangrene; R59.9 Enlarged lymph nodes, unspecified
CPT/HCPCS: 78815; A9552

== ENCOUNTER 2018-12-05 10:38 | Day surgery (SDC) | payer MEDICARE, OTHER ==
[2018-12-03 11:24] VITALS: BMI 29.2
[~2018-12-05 10:38] MED LIST changes: +ALBUTEROL NEB (CONC) 2.5 MG/0.5 ML INHALATION ONE; +LACTATED RINGERS 1,000 ML IV SCH; +LIDOCAINE 2% (PF) 20 MG/ML 5 ML VIAL INHALATION ONE; +LIDOCAINE VISCOUS 300 MG/15 ML CUP MUCOUS MEM ONE; -REGADENOSON 0.4 MG/5 ML SYRINGE IV ONE; +SODIUM CHLORIDE 0.9% 1,000 ML IV SCH
[2018-12-05 11:06] VITALS: TEMP 97.4
[2018-12-05 11:07] LABS: Glucose,Whole Blood 132 mg/dL (75-99)
[2018-12-05] MEDS ORDERED: KETAMINE 10 MG/ML 20 ML VIAL ONE (13:07)
[2018-12-05] MEDS ORDERED: PROPOFOL 10 MG/ML 20 ML VIAL IV ONE (13:07)
[2018-12-05] MEDS ORDERED: LIDOCAINE 1% INJ 10MG/ML (20 ML MDV) ONE (13:07)
[2018-12-05] MEDS ORDERED: GLYCOPYRROLATE 0.2 MG/ML 2 ML VIAL ONE (13:07)
[2018-12-05] MEDS ORDERED: MIDAZOLAM 2 MG/2 ML VIAL ONE (13:07)
[2018-12-05] MEDS ORDERED: LACTATED RINGERS 1,000 ML IV ONE (13:53)
[2018-12-05] MEDS ORDERED: LIDOCAINE 2% INJ 20 MG/ML INTRATRACH ONE (13:54)
--- NOTE | 2018-12-05 13:54 | P.PCN ---
Date of Procedure: 12/05/18 Preoperative Diagnosis: Mediastinal lymphadenopathy, right middle lobe atelectasis Postoperative Diagnosis: 1 severe tracheal bronchomalacia 2 narrowing of the right middle lobe bronchus due to extrinsic compression and endobronchial irregularities causing significant drop in the size of the lumen. Procedure(s) Performed: Flexible Bronchoscopy, TB and a right paratracheal lymph node, endobronchial biopsies washing and brushing from the right middle lobe Anesthesia: MAC Surgeon: Trupti Gold Estimated Blood Loss (ml): 5 Pathology: other Condition: stable Disposition: same day Operative Findings: This is a 68-year-old female patient who is been experiencing abnormalities with her breathing and shortness of breath. CAT scan of the chest showed right middle lobe atelectasis in addition to mediastinal lymphadenopathy. This was followed up by PET scan that showed some mild metabolic activity within the mediastinal lymph nodesSpecifically the PET scan showed that the patient had retrocrural valve, pretracheal and mediastinal lymphadenopathy addition to bilateral hilar lymphadenopathy and subcarinal lymph nodes with mild metabolic activity with an SUV ranging between 3.5 3.6. There was also a right-sided pleural effusion noted. Based on all this, the patient was brought in for a bronchoscopy airway inspection and transbronchial needle aspirate of lymph nodes. This procedure was done under conscious sedation. After achieving adequate sedation the flexible bronchoscope was introduced into the right nostril was advanced through the posterior oropharynx and then the larynx and an upper airway inspection was done. The pharyngeal structures of the laryngeal structures including the epiglottis vallecula, arytenoids and the vocal cords are all within normal limits. A total of 1 mL of 1% lidocaine was applied to the vocal cords and following that the bronchoscope advanced into the upper trachea. Examination tracheal bronchial tree was done. Immediately was noted that the patient had a severe degree of tracheal bronchomalacia with dynamic obstruction of the airways with exhalation and coughing. The membranous trachea was very dynamically and was causing near complete occlusion of the airway with exhalation. In any rate, airway inspection was done and the visualized airways into the trachea, right mainstem bronchus, right upper lobe bronchus, bronchus intermedius, right middle lobe bronchus, right lower lobe bronchus. At the level of the right middle lobe bronchus, there was significant endobronchial irregularities and the airway itself was extrinsically compressed and deformed a narrowed and I will say the diameter has been drop by at least 50% is normal size. I was able to extend the bronchoscope and and visualized the medial and the lateral segment of the right middle lobe. The underlying mucosa was quite friable. A quick bronchioloalveolar lavage was done of the right middle lobar 60 mL of fluid was infused and 20 mL of aspirate was obtained. Following that the bronchoscope was moved to the left and an airway inspection was completed with left mainstem bronchus left upper lobe bronchus and left lower bronchus were all inspected. Airway evaluation was positive for bronchomalacia that was noted throughout the airways are both in upper and lower lobe. No endobronchial abnormalities were seen on the left side. Bronchoscope was then moved to the right middle lobe again and the bronchial biopsies and bronchial brushing of the right middle lobe was done. Bronchoscope was then moved to the main trachea and using a 21-gauge histology the transbronchial needle aspirate of right paratracheal lymph node was done. 3 passes were obtained. The procedure was completed. Therapeutic airway suctioning was done and the bronchoscope was removed and the patient will be chest with recovery in stable condition We'll be awaiting the results of the biopsies are obtained today. The patient subsequently will need a thoracentesis of the right lung knowing that she has a moderate-sized right-sided pleural effusion. She will also be seen in our office for further planning. If this comes back nondiagnostic, we'll make consider a anterior mediastinoscopy and resection of a paratracheal lymph node. We'll continue to follow.
[2018-12-05 15:10] VITALS: BP 104/69; PULSE 119; RESP 20
[2018-12-05 20:09] LABS: Appearance,BF Blood Tinged; Nucleated Cells, Body Fluid 200 /uL; RBC, Body Fluid 44400 /uL
[2018-12-05 20:27] LABS: Mononuclear WBC,Body Fluid 83 %; Polynuclear WBC,Body Fluid 17 %; Total Cells Counted,Body Fluid 100
== END 2018-12-05 15:17 | disposition home or self-care (01) ==
LOC: ORWHC2ENDO 10:38
PROVIDERS: ATTEND Internal Medicine Critical Care Medicine
DX: J84.10 Pulmonary fibrosis, unspecified (principal); R59.0 Localized enlarged lymph nodes; E78.5 Hyperlipidemia, unspecified; Q32.0 Congenital tracheomalacia; E11.9 Type 2 diabetes mellitus without complications; H40.9 Unspecified glaucoma; Z86.73 Personal history of transient ischemic attack (TIA), and cerebral infarction without residual deficits; Z86.79 Personal history of other diseases of the circulatory system; Z90.710 Acquired absence of both cervix and uterus; Z82.49 Family history of ischemic heart disease and other diseases of the circulatory system; Z80.8 Family history of malignant neoplasm of other organs or systems; Z79.82 Long term (current) use of aspirin; Z79.4 Long term (current) use of insulin; Z79.899 Other long term (current) drug therapy
CPT/HCPCS: 94640; 87798 ×3; 87496; 87498; 87529; 88104; 88108; 88305; 88173; 89050; 88312; 88342; 87252; 87502; 87634; 88341; 87070; 87205; 87116; 87102; 87206; 31628; 31629; 31623; 31624; J2001 ×3; J2250; J2704; 31625

== ENCOUNTER → 2018-12-19 | Outpatient (CLI) | payer MEDICARE, OTHER | END | disposition home or self-care (01) | LOC: LABWHC1 10:30 | PROVIDERS: ATTEND Internal Medicine Critical Care Medicine | DX: R59.0 Localized enlarged lymph nodes (principal) | CPT/HCPCS: 36415; 82164 ==

== ENCOUNTER 2018-12-20 10:34 | Day surgery (SDC) | payer MEDICARE, OTHER ==
[~2018-12-20 10:34] MED LIST changes: -ALBUTEROL NEB (CONC) 2.5 MG/0.5 ML INHALATION ONE; -LACTATED RINGERS 1,000 ML IV SCH; -LIDOCAINE 2% (PF) 20 MG/ML 5 ML VIAL INHALATION ONE; -LIDOCAINE VISCOUS 300 MG/15 ML CUP MUCOUS MEM ONE; -SODIUM CHLORIDE 0.9% 1,000 ML IV SCH; +SODIUM CHLORIDE 0.9% 500 ML 500 ML in EMPTY BAG 1 BAG IV PRN
[2018-12-20 11:26] VITALS: RESP 16; TEMP 97.6
[2018-12-20 12:34] VITALS: PULSE 96
[2018-12-20 12:38] VITALS: BP 123/77
--- NOTE | 2018-12-20 13:05 | XR ---
EXAMINATION TYPE: XR chest 1V portable DATE OF EXAM: 12/20/2018 COMPARISON: 10/17/2018 HISTORY: Postthoracentesis TECHNIQUE: Single frontal view of the chest is obtained. FINDINGS: There is no sizable pneumothorax post thoracentesis. Interval near complete resolution of right-sided pleural effusion. Atherosclerotic change aorta. Pulmonary arteries remain enlarged correl ate for adenopathy. Diffuse osteopenia and arthropathy of the shoulders. IMPRESSION: 1. No evidence of pneumothorax postthoracentesis. 2. Bilateral hilar enlargement. Recent CT scan reported bilateral adenopathy
[2018-12-20 16:09] LABS: Appearance,BF Blood Tinged; RBC, Body Fluid 4000 /uL
[2018-12-20 16:10] LABS: Nucleated Cells, Body Fluid 2000 /uL
[2018-12-20 16:11] LABS: Mononuclear WBC,Body Fluid 85 %; Polynuclear WBC,Body Fluid 15 %; Total Cells Counted,Body Fluid 100
[2018-12-20 21:49] LABS: Glucose, BF Source Pleural Fluid; Glucose, Body Fluid 134 mg/dL; LDH, Body Fluid Source Pleural Fluid; Total Protein, Body Fluid 3900 mg/dL
--- NOTE | 2018-12-20 23:39 | PCN ---
PROCEDURE NOTE PROCEDURE: Right-sided thoracentesis. PREOPERATIVE DIAGNOSIS: Right-sided pleural effusion. POSTOPERATIVE DIAGNOSIS: Right-sided pleural effusion. DESCRIPTION OF PROCEDURE: A time-out was completed verifying correct patient, procedure, site, positioning , and implant (s) or special equipment if applicable. Ultrasound guidance was used and appropriate fluid pocket was identified and marked. Patient was positioned, prepped and draped in usual sterile fashion. Lidocaine was used to anesthetize the area. A thoracentesis catheter was introduced into the pleural space and fluid was removed. Blood loss was none. A chest x-ray was ordered to evaluate for pneumothorax. Total Fluid Removed: 40 mL. Color of Fluid: Blood-tinged. Fluid was sent for appropriate laboratory tests. Patient tolerated the procedure well and there were no complications, no pneumothorax. This was done for diagnostic purposes. MMODL / IJN: [id number] /
== END 2018-12-20 16:06 | disposition home or self-care (01) ==
LOC: PROCWHC3 10:34
PROVIDERS: ATTEND Internal Medicine Critical Care Medicine
DX: J90 Pleural effusion, not elsewhere classified (principal); R59.0 Localized enlarged lymph nodes; E11.9 Type 2 diabetes mellitus without complications; E78.5 Hyperlipidemia, unspecified; H40.9 Unspecified glaucoma; J44.9 Chronic obstructive pulmonary disease, unspecified; Z79.82 Long term (current) use of aspirin; Z79.899 Other long term (current) drug therapy; Z86.73 Personal history of transient ischemic attack (TIA), and cerebral infarction without residual deficits; Z82.49 Family history of ischemic heart disease and other diseases of the circulatory system; Z80.9 Family history of malignant neoplasm, unspecified; Z98.890 Other specified postprocedural states; Z90.710 Acquired absence of both cervix and uterus; Z90.89 Acquired absence of other organs; Z95.828 Presence of other vascular implants and grafts
CPT/HCPCS: 32554; 71045; 76604; 82945; 83615; 84157; 87070; 87205; 89050

== ENCOUNTER → 2018-12-20 | Outpatient (CLI) | payer MEDICARE, OTHER ==
--- NOTE | 2018-12-20 11:34 | US ---
EXAMINATION TYPE: US chest DATE OF EXAM: 12/20/2018 COMPARISON: NONE CLINICAL HISTORY: J90 Pleural effusion. TECHNIQUE: Targeted ultrasound of the posterior right chest. EXAM MEASUREMENTS: Right Pleural Effusion pocket size: 7.0m with lung tissue noted floating in fluid at anterior pocket to posterior pocket Right skin surface to fluid distance: 4.5m Left Pleural Effusion pocket size: no fluid seen Right side was marked for possible thoracentesis outside the dept. Pulmonologists are able to review the images in the patient?s EMR. IMPRESSIONS: Right pleural effusion
== END | disposition home or self-care (01) ==
LOC: RADUSWWP 09:59
PROVIDERS: ATTEND Internal Medicine Critical Care Medicine
DX: J90 Pleural effusion, not elsewhere classified (principal)
CPT/HCPCS: 76604

== ENCOUNTER → 2019-01-29 | Outpatient (CLI) | payer MEDICARE, OTHER ==
[2019-01-29 15:48] LABS: African American GFR (CKD) 59.3 (60.0-200.0); Anion Gap 5.8 mmol/L (4.00-12.00); BUN/Creat Ratio 21.82 Ratio (12.00-20.00); Calcium 9.6 mg/dL (8.7-10.3); Carbon Dioxide 32.2 mmol/L (21.6-31.8); Magnesium 1.4 mg/dL (1.5-2.4); Non-African American GFR(CKD) 51.2 (60.0-200.0); Potassium 4.6 mmol/L (3.5-5.5)
== END | disposition home or self-care (01) ==
LOC: LABWHC1 10:24
PROVIDERS: ATTEND Nurse Practitioner
DX: I10 Essential (primary) hypertension (principal)
CPT/HCPCS: 36415; 80048; 83735; 84439; 84443

== ENCOUNTER → 2019-02-06 | Outpatient (CLI) | payer MEDICARE, OTHER ==
--- NOTE | 2019-02-06 13:03 | CT ---
EXAMINATION TYPE: CT chest w con DATE OF EXAM: 02/06/2019 COMPARISON: 11/13/2018 HISTORY: Enlarged lymph nodes CT DLP: 392.9 mGycm, Automated exposure control for dose reduction was used. CONTRAST: Performed injected with 80 mL of Isovue 300. TECHNIQUE: Axial images were obtained at 5 mm thick sections. Reconstructed images are reviewed on [employer] computer in the coronal plane. FINDINGS: Portion of the thyroid visualized is normal. There is a small right pleural effusion. Some atelectasis is likely within the right middle lobe. There is a 1.8 cm pretracheal lymph node. Smaller prominent lymph nodes are in peribronchial region measuring 1.3 and 1.1 cm. Hilar adenopathy is present bilaterally The ascending aorta diameter at the level of the main pulmonary artery is 3.0 cm. The main pulmonary artery diameter at the bifurcation is 2.[address] sections are obtained through the upper abdomen. Abdomen is essentially unremarkable. IMPRESSIONS: 1. Essentially stable mediastinal adenopathy. 2. Small right pleural effusion increasing in size from comparison.
== END | disposition home or self-care (01) ==
LOC: RADCTMAIN 10:08
PROVIDERS: ATTEND Internal Medicine Critical Care Medicine
DX: J90 Pleural effusion, not elsewhere classified (principal); R59.0 Localized enlarged lymph nodes
CPT/HCPCS: 82565; 84520; 71260; 36415; Q9967

== ENCOUNTER → 2019-03-05 | Outpatient (CLI) | payer MEDICARE, OTHER ==
[2019-03-09 23:30] LABS: Histoplasma Abs by ID None Detected (None Detected); Histoplasma Abs by Mycelia, CF <1:8 (<1:8)
== END | disposition home or self-care (01) ==
LOC: LABWHC1 09:02
PROVIDERS: ATTEND Internal Medicine Critical Care Medicine
DX: E83.42 Hypomagnesemia (principal); R59.0 Localized enlarged lymph nodes
CPT/HCPCS: 36415; 83735; 86698

== ENCOUNTER → 2019-04-09 | Outpatient (CLI) | payer MEDICARE, OTHER ==
[2019-04-09 16:49] LABS: African American GFR (CKD) 66.6 (60.0-200.0); Anion Gap 8.8 mmol/L (4.00-12.00); Calcium 9.6 mg/dL (8.7-10.3); Carbon Dioxide 30.2 mmol/L (21.6-31.8); Magnesium 1.6 mg/dL (1.5-2.4); Non-African American GFR(CKD) 57.4 (60.0-200.0)
== END ==
LOC: LABWHC1 10:56
PROVIDERS: ATTEND Nurse Practitioner
DX: E83.42 Hypomagnesemia (principal)
CPT/HCPCS: 36415; 80048; 83735

== ENCOUNTER → 2019-07-23 | Outpatient (CLI) | payer MEDICARE, OTHER ==
--- NOTE | 2019-07-23 12:51 | CT ---
EXAMINATION TYPE: CT chest w con DATE OF EXAM: 07/23/2019 COMPARISON: 02/06/2019 HISTORY: complains of LAYLA CT DLP: 388.4 mGycm, Automated exposure control for dose reduction was used. CONTRAST: Performed injected with 80 mL of Isovue 300. TECHNIQUE: Axial images were obtained at 5 mm thick sections. Reconstructed images are reviewed on [employer] computer in the coronal plane. FINDINGS: Portion of the thyroid visualized is normal. There is an area of pneumonitis measuring 1 cm at the left apex. There is a moderate right pleural effusion. Some streak opacities along the major fissure at the righ t middle lobe lung base. Some atelectasis may be adjacent. There is a 1.5 cm prominence along the right pretracheal space. This is smaller than 1.8 cm previous ly. Smaller right hilar lymph nodes and left infrahilar lymph nodes may be present. These are smaller than the comparison The ascending aorta diameter at the level of the main pulmonary artery is 3.0 cm . The main pulmonary artery diameter at the bifurcation is 2.[address] sections are obtained through the upper abdomen. Abdomen is essentially unremarkable. IMPRESSIONS: 1. Probable atelectasis at the right middle lobe lung base above the diaphragm. 2. Moderate right pleural effusion. 3. Small area of pneumonitis at the left apex. 4. Enlarged right paratracheal lymph node slightly smaller than the comparison
== END | disposition home or self-care (01) ==
LOC: RADCTMAIN 10:57
PROVIDERS: ATTEND Internal Medicine Critical Care Medicine
DX: J18.9 Pneumonia, unspecified organism (principal); J90 Pleural effusion, not elsewhere classified; R59.9 Enlarged lymph nodes, unspecified
CPT/HCPCS: 82565; 84520; 71260; 36415; Q9967

== ENCOUNTER → 2020-01-31 | Outpatient (CLI) | payer MEDICARE, OTHER ==
--- NOTE | 2020-02-01 19:02 | CT ---
EXAMINATION TYPE: CT chest w con DATE OF EXAM: 01/31/2020 COMPARISON: 07/23/2019. HISTORY: Mediastinal lymphadenopathy CT DLP: 419.80 mGycm Automated exposure control for dose reduction was used. CONTRAST: CT scan of the chest is performed with IV Contrast, patient injected with 80 mL of Isovue 300. FINDINGS: LUNGS: There is chronic moderate right pleural effusion and. Chronic mild platelike consolidation in the right middle lobe, consistent with compressive atelectasis. Additional mild bibasilar atelectasis . No pneumothorax. No definite pulmonary mass seen. MEDIASTINUM: There are unchanged multiple enlarged paratracheal and subcarinal lymph nodes, with inde x lesion measuring up to 2.2 cm in short axis. Stable right hilar fullness. There is moderate thoraci c aorta atherosclerotic disease. OTHER: No additional significant abnormality is seen. No acute osseous abnormality. IMPRESSION: Unchanged mediastinal lymphadenopathy. Chronic moderate right pleural effusion with right middle lobe compressive atelectasis. No definite new abnormality.
== END | disposition home or self-care (01) ==
LOC: RADCTMAIN 11:32
PROVIDERS: ATTEND Internal Medicine Critical Care Medicine
DX: J90 Pleural effusion, not elsewhere classified (principal); J98.11 Atelectasis; R59.1 Generalized enlarged lymph nodes
CPT/HCPCS: 82565; 84520; 71260; 36415; Q9967

== ENCOUNTER → 2020-03-31 | Outpatient (CLI) | payer MEDICARE, OTHER ==
--- NOTE | 2020-03-31 16:00 | BD ---
EXAMINATION TYPE: Axial Bone Density DATE OF EXAM: 03/31/2020 COMPARISON: DEXA bone scan 2017 CLINICAL HISTORY: Postmenopausal female Height: 5 FT 1/2 IN Weight: 159 FRAX RISK QUESTIONS: Alcohol (3 or more units per day): NO Family History (Parent hip fracture): NO Glucocorticoids (More than 3mos): NO (Ex: prednisone, prednisolone, methylprednisolone, dexamethasone, and hydrocortisone). History of Fracture in Adulthood: YES Secondary Osteoporosis: 1. Type 1 Diabetes: NO 2. Hyperthyroidism: NO 3. Menopause before 45: YES 4. Malnutrition: NO 5. Chronic liver disease: NO Rheumatoid Arthritis: NO Current Tobacco Use: NO RISK FACTORS HISTORY OF: Family History of Osteoporosis: NO Active: NO Diet low in dairy products/other sources of calcium: NO Postmenopausal woman: TOTAL HYST AGE 36 Take estrogen and/or progesterone medications: NONE Lost more than 2 inches in height since high school: NO MEDICATIONS: Additional Medications: CALCIUM ,VIT D, METOPROLOL, ENALAPRIL, ATORVASTATIN,GLIMEPERIDE, SOLIQUA, PIRIN Additional History: EXAM MEASUREMENTS: Bone mineral densitometry was performed using the [employer] System. Bone mineral density as measured about the Lumbar spine is: ----- L1-L4(G/cm2): 1.163 T Score Values are as follows: ----- L2: -1.2 ----- L3: 0.4 ----- L4: 0.8 ----- L1-L4: -0.1 Bone mineral density has: INCREASED 2.4 % since study of: 2017 Bone mineral density about the R hip (g/cm2): 0.832 Bone mineral density about the L hip (g/cm2): 1.089 T Score values are as follows: -----R Neck: -1.5 -----L Neck: 0.4 -----R Total: -1.3 -----L Total: -0.4 Bone mineral density has: INCREASED 0.2 % since study of: 2018 IMPRESSION: Osteopenia (T Score between -2.5 and -1) redemonstrated. There remains slightly increased risk of fracture and the patient may be considered for treatment. Re-Screen 2-5 years. NOTE: T-SCORE=SD OF THE YOUNG ADULT MEAN.
--- NOTE | 2020-04-03 10:04 | MM ---
Reason for exam: screening (asymptomatic). Last mammogram was performed 1 year and 6 months ago. History: Patient is postmenopausal. Physical Findings: A clinical breast exam by your physician is recommended on an annual basis and results should be correlated with mammographic findings. MG Screening Mammo w CAD Bilateral CC and MLO view(s) were taken. XCCL view(s) were taken of the right breast. Prior study comparison: September 17, 2018, right breast MG diagnostic mammo RT w CAD. January 23, 2018, right breast MG work up mamm w CAD RT. There are scattered fibroglandular densities. No significant changes when compared with prior studies. ASSESSMENT: Negative, BI-RAD 1 RECOMMENDATION: Routine screening mammogram of both breasts in 1 year.
== END | disposition home or self-care (01) ==
LOC: RADBDWWP 14:52
PROVIDERS: ATTEND Family Medicine
DX: Z12.31 Encounter for screening mammogram for malignant neoplasm of breast (principal); M85.80 Other specified disorders of bone density and structure, unspecified site; Z78.0 Asymptomatic menopausal state
CPT/HCPCS: 77067; 77080

== ENCOUNTER → 2020-11-18 | Outpatient (CLI) | payer MEDICARE, OTHER ==
[2020-11-19 15:58] LABS: T4, Free (Free Thyroxine) 1.27 ng/dL (0.800-1.800)
== END | disposition home or self-care (01) ==
LOC: LABWHC1 14:58
PROVIDERS: ATTEND Internal Medicine Interventional Cardiology
DX: E05.90 Thyrotoxicosis, unspecified without thyrotoxic crisis or storm (principal)
CPT/HCPCS: 36415; 84439; 84443

== ENCOUNTER 2020-12-25 11:15 | Day surgery (SDC) | payer MEDICARE, OTHER ==
[~2020-12-25 11:15] MED LIST changes: +HEPARIN SODIUM,PORCINE/PF 5,000 UNIT/0.5 ML SYRINGE SQ PRN; +HYDROmorphone 0.5 MG/0.5 ML SYRINGE IVP PRN; +LACTATED RINGERS 1,000 ML IV SCH; +LIDOCAINE 1% (10MG/ML) FOR IV START INTRADERMA PRN; +ONDANSETRON 4 MG/2 ML VIAL IVP ONE; -SODIUM CHLORIDE 0.9% 500 ML 500 ML in EMPTY BAG 1 BAG IV PRN
--- NOTE | 2020-12-25 11:26 | P.GSHP ---
History of Present Illness H&P Date: 12/25/20 CHIEF COMPLAINT: Ventral hernia. HISTORY OF PRESENT ILLNESS: The patient is a 70-year-old female who presents with swelling along the abdomen for over 28 years with pain and tenderness. Findings were consistent with ventral hernia. Now she presents for further evaluation and management. PAST MEDICAL HISTORY: Please see list and reviewed. PAST SURGICAL HISTORY: Please see list and reviewed. MEDICATIONS: Please see list and reviewed. ALLERGIES: Please see list and reviewed. SOCIAL HISTORY: Please see list and reviewed. FAMILY HISTORY: No reports of Crohn disease or ulcerative colitis. REVIEW OF ORGAN SYSTEMS: CONSTITUTIONAL: No reports of fevers or chills. GI: Denies any blood in stools or constipation. HEENT: Has cataracts. LYMPHATIC: The patient denies any lumps and bumps around the neck. ENDOCRINE: Denies any thyroid disorders. Has diabetes type 2. RESPIRATORY: Denies pneumonia. Denies any troubles with breathing or dyspnea on exertion. CARDIOVASCULAR: Has hypertension. GENITOURINARY: Denies any blood in urine or increased urinary frequency. MUSCULOSKELETAL: Has back pain, stiffness, joint arthritis. NEUROLOGIC: Past traumatic brain injury. Has migraines. PSYCHIATRIC: Has depression. No suidical ideation. HEMATOLOGIC: Denies any abnormal bleeding or bruising. BREASTS: Denies any breast lumps, pain or nipple discharge. PHYSICAL EXAM: VITAL SIGNS: Stable GENERAL: Well-developed pleasant female in no acute distress. HEENT: No scleral icterus. Extraocular movements grossly intact. Moist buccal mucosa. NECK: Supple without lymphadenopathy. CHEST: Unlabored respirations. Equal bilateral excursions. CARDIOVASCULAR: Regular rate and rhythm. Distal 2+ pulses. Abdomen: Well healed lower midline incision. Fullness along the right lateral abdominal wall. MUSCULOSKELETAL: No clubbing, cyanosis, or edema. SKIN: Well perfused. PSYCH: Alert and oriented. No focal or lateralizing signs. ASSESSMENT: 1. Ventral hernia, incisional PLAN: 1. Recommend proceeding with robotic ventral hernia repair with mesh. 2. Benefits and risks of surgical intervention was discussed including possibility of open technique. 3. DVT prophylaxis. 4. Antibiotic prophylaxis. 5. She is elevated risk due to pre-existing cardiac disease. Past Medical History Past Medical History: CVA/TIA, Diabetes Mellitus, Eye Disorder Additional Past Medical History / Comment(s): CLOSED HEAD INJURY 2017. BRAIN ANEURYSMS. Glaucoma. Migraines. TIA-no residual effects, heart murmer, "occ extra heart beat". SOB (UNKNOWN CAUSE, HAS BEEN TO 2 SPECIALISTS, UNABLE DETERMINE CAUSE). History of Any Multi-Drug Resistant Organisms: None Reported Past Surgical History: Hysterectomy, Tonsillectomy Additional Past Surgical History / Comment(s): brain aneurysm repair X 2. laproscopic procedure. BILATERAL CATARACT/LENS. PLEAURAL effusion right side with thorancentesis Past Anesthesia/Blood Transfusion Reactions: No Reported Reaction Smoking Status: Never smoker - Past Family History Father Family Medical History: Cancer, Deep Vein Thrombosis (DVT) Additional Family Medical History / Comment(s): prostate Mother Family Medical History: Cancer Additional Family Medical History / Comment(s): colon Brother(s) Family Medical History: Cancer Medications and Allergies Home Medications Medication Instructions Recorded Confirmed Type Enalapril Maleate 2.5 mg PO QAM 05/16/14 12/22/20 History Aspirin 81 mg PO DAILY 12/08/16 12/22/20 History Atorvastatin Calcium [Lipitor] 10 mg PO QAM 12/08/16 12/22/20 History Glimepiride [Amaryl] 2 mg PO BID 04/02/18 12/22/20 History Metoprolol Tartrate [Lopressor] 50 mg PO 1200 04/02/18 12/22/20 History Insulin Glargine/Lixisenatide 60 units SQ QAM 12/03/18 12/22/20 History [Soliqua 100 Unit-33 Mcg/ml Pen] Calcium Carbonate [Calcium] 600 mg PO DAILY 12/22/20 12/22/20 History Metoprolol Tartrate [Lopressor] 75 mg PO BID 12/22/20 12/22/20 History Allergies Allergy/AdvReac Type Severity Reaction Status Date / Time No Known Allergies Allergy Verified 12/22/20 11:01
[2020-12-25] MEDS ORDERED: ACETAMINOPHEN TAB 500 MG TAB PO STA (11:27)
[2020-12-25] MEDS ORDERED: GABAPENTIN 300 MG CAP PO STA (11:27)
[2020-12-25 12:09] LABS: Glucose,Whole Blood 183 mg/dL (75-99)
[2020-12-25] MEDS ORDERED: MIDAZOLAM 2 MG/2 ML VIAL IVP ONE (12:21)
[2020-12-25] MEDS ORDERED: fentaNYL (PF) 50 MCG/ML 2 ML AMP IVP ONE (12:21)
[2020-12-25] MEDS ORDERED: BUPIVACAINE (PF) 0.5% 30 ML VIAL SQ ONE ×2 (13:05→13:52)
[2020-12-25] MEDS ORDERED: SUCCINYLCHOLINE CHLORIDE 100 MG/5 ML SYR IV ONE (13:19)
[2020-12-25] MEDS ORDERED: NEOSTIGMINE 1 MG/ML 10 ML VIAL ONE (13:19)
[2020-12-25] MEDS ORDERED: PHENYLEPHRINE-0.9% NACL SYG 1,000 MCG/10 ML SYRINGE ONE (13:19)
[2020-12-25] MEDS ORDERED: ROPIVACAINE 5 MG/ML 30 ML VIAL ONE (13:19)
[2020-12-25] MEDS ORDERED: ROCURONIUM 10 MG/ML (5 ML VIAL) IV ONE (13:19)
[2020-12-25] MEDS ORDERED: fentaNYL (PF) 50 MCG/ML 2 ML AMP ONE (13:19)
[2020-12-25] MEDS ORDERED: GLYCOPYRROLATE 0.2 MG/ML 2 ML VIAL ONE (13:19)
[2020-12-25] MEDS ORDERED: PROPOFOL 10 MG/ML 20 ML VIAL IV ONE (13:19)
[2020-12-25] MEDS ORDERED: LIDOCAINE 1% INJ 10MG/ML (20 ML MDV) ONE (13:19)
--- NOTE | 2020-12-25 13:21 | P.ANPRN ---
Procedure Note - Anesthesia - Nerve Block Performed Bilateral Erector Spinae Single Time Out Performed: Yes Date of Procedure: 12/25/20 Procedure Start Time: 12:16 Procedure Stop Time: 12:28 Location of Patient: PreOp Indication: Acute Post-Operative Pain, Dx/Pain Location, Requested by Surgeon Specifically requested for management of pain by : Cyndee Aparicio Sedation Type: Sedate with meaningful contact maintained Preparation: Sterile Prep Position: Sitting Catheter: None Needle Types: Facet Needle Gauge: 21 Ultrasound used to visualize needle placement: Yes Ultrasound used to observe medication spread: Yes Injectate: 0.5% Ropivacaine (see comment for volume) Blood Aspirated: No Pain Paresthesia on Injection Noted: No Resistance on Injection: Normal Image Stored and Saved: Yes Events: Uneventful and Well Tolerated (30cc 0.5% ropivacaine)
[2020-12-25 15:20] VITALS: TEMP 97
--- NOTE | 2020-12-25 15:20 | P.OP ---
Date of Procedure: 12/25/20 Description of Procedure: SURGEON: CYNDEE APARICIO MD PREOPERATIVE DIAGNOSES: 1. Initial incarcerated incisional hernia 2. Diabetes type 2, insulin-dependent 3. Hypertensive heart disease with cardiomyopathy 4. Traumatic brain injury 5. Transient ischemia attack without sequela 6. Hyperlipidemia 7. Migraines with brain aneurysm 8. Obesity due to excess calories, BMI 30.8 POSTOPERATIVE DIAGNOSES: 1. Initial incarcerated incisional hernia with incarceration of small bowel and large bowel obstruction 2. Diabetes type 2, insulin-dependent 3. Hypertensive heart disease with cardiomyopathy 4. Traumatic brain injury 5. Transient ischemia attack without sequela 6. Hyperlipidemia 7. Migraines with brain aneurysm 8. Obesity due to excess calories, BMI 30.8 9. Severe peritoneal adhesions OPERATION: 1. Robotic-assisted da Tj Xi laparoscopic lysis of adhesions, over 30 minutes 2. Robotic-assisted da Tj Xi laparoscopic reduction and repair of incarcerated incisional hernia with mesh, ventralight ST mesh 11.4 cm Anesthesia: GETA, regional, local Estimated Blood Loss (ml): 5 Pathology: None COMPLICATIONS: None. Operative Findings: 1. Midline incisional hernia defect 6 x 5 cm 2. Fascia repaired using #1 V-lock suture 3. Incarcerated small bowel of incisional hernia including the transverse colon reduced without ischemic changes INDICATIONS: The patient is a 70-year-old female who presents with a personal history of symptomatic abdominal wall incisional hernia. Cardiac risk assessment was obtained. Surgical intervention with laparoscopic versus robotic and open techniques were reviewed. Placement of mesh was also reviewed. Benefits and risks were thoroughly described. Informed consent was obtained. DESCRIPTION OF PROCEDURE: The patient was brought into the operating room and laid in supine position. After general induction, the abdomen had been prepped and draped in standard sterile fashion. Ioban draping was also placed. Prior to incision, a timeout protocol was confirmed with surgical team regarding the patient's name including procedures to be performed. The robot was primed prior to the procedure. A field block using local anesthetic was placed along hernia site including the proposed port sites. Initial incision was made with an #11 blade along the left upper quadrant. A 0 degree 5 mm laparoscopic trocar entry was performed and insufflated. Three 8 mm ports were placed along the left lateral abdominal wall under direct localization after exchanging the 5-mm for an 8 mm port. Placements of the ports were 15 cm from the target anatomy and 10 cm apart. Diagnostic laparoscopy demonstrated moderate intra-abdominal adhesions including small bowel adherent to the abdominal wall with incarceration and mid transverse colon. An accessory 12 mm port was placed at the right upper quadrant for exchange of mesh including sutures. The da Tj Xi robot was previously primed, prepped and draped then docked from the right side of the patient onto the left side of the patient. I then sat at the robot Da Tj Xi console where working arms of the robot including Bovie cautery connected to robotic scissors, needle residential driver, and graspers placed by the res habilitation assistant. Greater omental adhesions including small bowel was found along the abdominal wall. Lysis of adhesions of 30 minutes was performed carefully using minimal cautery with the scissors. No enterotomy or colotomy had occurred. Small bowel was reduced from the incarcerated hernia. Additionally the transverse mesocolon was also reduced from the incisional hernia without ischemic changes. The defects were reduced with preperitoneal fat at the midline defect. Fascial defect 6 cm length x 5 cm width dimension was identified the presence of diastases recti. The incarcerated contents were reduced as the peritoneal fat was cleaned from the abdominal wall. Next, hemostasis was checked with cautery. The hernia defects were oversewn using #1 nonabsorbable V-lock suture for defect with fascial imbrication x 2. Next, ventralight ST mesh 11.4 cm was placed with the rough side towards the abdominal wall as to cover the defect. 2-0 VLOC absorbable 9 inch sutures were used to fixate the mesh. A final endoscopic imaging was obtained. All instruments and pneumoperitoneum were evacuated from the abdominal cavity. The da Tj Xi robot was undocked from the patient. I re-scrubbed into the case for closure of incisions. The fascia of the 12-mm port was probed and less than 8-mm in size. The incisions were reapproximated using 4-0 Monocryl in an interrupted subcuticular fashion. Liquid glue was applied to the skin after cleansing the skin with normal saline and dilute hydrogen peroxide. An abdominal binder was placed. At the end of the procedure, needle, sponge, and instrument count had been verified correct by rn surgical pcu. The patient was taken to the postanesthesia care unit in stable condition. Plan - Discharge Summary Discharge Rx Participant: No New Discharge Prescriptions: New Acetaminophen Tab [Tylenol Tab] 1,000 mg PO Q6HR PRN #30 tablet PRN Reason: Pain Simethicone [Gas-X] 125 mg PO AC-TID PRN #20 capsule PRN Reason: Pain Ibuprofen [Motrin] 600 mg PO Q8HR PRN #30 tab PRN Reason: Pain Continue Enalapril Maleate 2.5 mg PO QAM Atorvastatin Calcium [Lipitor] 10 mg PO QAM Aspirin 81 mg PO DAILY Glimepiride [Amaryl] 2 mg PO BID Metoprolol Tartrate [Lopressor] 50 mg PO 1200 Insulin Glargine/Lixisenatide [Soliqua 100 Unit-33 Mcg/ml Pen] 60 units SQ QAM Metoprolol Tartrate [Lopressor] 75 mg PO BID Calcium Carbonate [Calcium] 600 mg PO DAILY Discharge Medication List Enalapril Maleate 2.5 mg PO QAM 05/16/14 [History] Aspirin 81 mg PO DAILY 12/08/16 [History] Atorvastatin Calcium [Lipitor] 10 mg PO QAM 12/08/16 [History] Glimepiride [Amaryl] 2 mg PO BID 04/02/18 [History] Metoprolol Tartrate [Lopressor] 50 mg PO 1200 04/02/18 [History] Insulin Glargine/Lixisenatide [Soliqua 100 Unit-33 Mcg/ml Pen] 60 units SQ QAM 12/03/18 [History] Calcium Carbonate [Calcium] 600 mg PO DAILY 12/22/20 [History] Metoprolol Tartrate [Lopressor] 75 mg PO BID 12/22/20 [History] Acetaminophen Tab [Tylenol Tab] 1,000 mg PO Q6HR PRN #30 tablet 12/25/20 [Rx] Ibuprofen [Motrin] 600 mg PO Q8HR PRN #30 tab 12/25/20 [Rx] Simethicone [Gas-X] 125 mg PO AC-TID PRN #20 capsule 12/25/20 [Rx] Follow up Appointment(s)/Referral(s): Cyndee Apraicio MD [STAFF PHYSICIAN] - 12/29/20 Patient Instructions/Handouts: Ventral Hernia Repair (GEN), Abdominal Binder (DC), Laparoscopic Herniorrhaphy (IP), *[facility] - Managing Your Pain After Surgery Without Opioids Activity/Diet/Wound Care/Special Instructions: Using antibacterial soap. No lifting over 4 pounds 4 weeks, January 24June shower. No bathtub soaks for 2 weeks, January 08 Wear abdominal binder daily for comfort except for showering. Use ice along incisions for today to prevent swelling. Take tylenol, aleve/ibuprofen, simethicone scheduled for 3 days for best pain relief Discharge Disposition: HOME SELF-CARE
[2020-12-25] MEDS ORDERED: LACTATED RINGERS 1,000 ML IV ONE (15:30)
[2020-12-25] MEDS: LACTATED RINGERS 1,000 ML IV ONE ×3 (15:30→19:35)
[2020-12-25 15:38] LABS: Glucose,Whole Blood 221 mg/dL (75-99)
[2020-12-25] MEDS ORDERED: diphenhydrAMINE 50 MG/ML 1 ML VIAL ONE (15:38)
[2020-12-25] MEDS ORDERED: INSULIN ASPART (NovoLOG) 100 UNIT/ML VIAL SQ ONE (15:44)
[2020-12-25] MEDS ORDERED: KETOROLAC 15 MG/ML 1 ML VIAL ONE (18:32)
[2020-12-25] MEDS ORDERED: ACETAMINOPHEN TAB 500 MG TAB ONE ×2 (18:32→18:35)
[2020-12-25] MEDS ORDERED: ACETAMINOPHEN TAB 500 MG TAB PO ONE (18:43)
[2020-12-25] MEDS ORDERED: KETOROLAC 15 MG/ML 1 ML VIAL IVP ONE (18:43)
[2020-12-25 19:55] VITALS: PULSE 86; RESP 20
[2020-12-25 19:57] VITALS: BP 131/68
== END 2020-12-25 19:45 | disposition home or self-care (01) ==
LOC: OR 11:15
PROVIDERS: ATTEND Surgery Plastic and Reconstructive Surgery
DX: K43.0 Incisional hernia with obstruction, without gangrene (principal); E11.9 Type 2 diabetes mellitus without complications; E66.09 Other obesity due to excess calories; E78.5 Hyperlipidemia, unspecified; G45.9 Transient cerebral ischemic attack, unspecified; H40.9 Unspecified glaucoma; I11.9 Hypertensive heart disease without heart failure; I42.9 Cardiomyopathy, unspecified; I67.1 Cerebral aneurysm, nonruptured; K66.0 Peritoneal adhesions (postprocedural) (postinfection); Z68.30 Body mass index [BMI] 30.0-30.9, adult; Z79.4 Long term (current) use of insulin; Z79.82 Long term (current) use of aspirin; Z86.73 Personal history of transient ischemic attack (TIA), and cerebral infarction without residual deficits
CPT/HCPCS: 49655; 64999; C1781; J2250; J1200; J2710; J0690; J2405; J2001; J3010; J2795; J1885; J2370; J0330; J2704; J1644

== ENCOUNTER → 2021-01-28 | Outpatient (CLI) | payer MEDICARE, OTHER ==
--- NOTE | 2021-01-29 17:27 | CT ---
EXAMINATION TYPE: CT chest w con DATE OF EXAM: 01/28/2021 COMPARISON: Chest x-ray 01/31/2020 HISTORY: difficulty breathing CT DLP: 527.3 mGycm Automated exposure control for dose reduction was used. CONTRAST: CT scan of the chest is performed with IV Contrast, patient injected with 80 mL of Isovue 300. FINDINGS: LUNGS: Right pleural effusion is again noted, there is been interval development of a small left pleu ral effusion. There is groundglass opacity bilaterally. Groundglass densities are present within the upper lobes as well as lower lobes, the chronic right middle lobe atelectatic change is again seen. T here is not significant reticulation, interstitial prominence, there is no bronchiectasis or pneumoth orax MEDIASTINUM: Mediastinal adenopathy is again noted as well as mild hilar adenopathy, some calcified h ilar nodes are present in the hilar regions as on prior AORTA: No additional significant abnormality is seen. OTHER: No additional significant abnormality is seen. IMPRESSION: Persistent mediastinal adenopathy. There is been interval development of groundglass opa [place] bilaterally, consider desquamative interstitial pneumonia, sarcoidosis, atypical infection, conn ective tissue disease and lymphoma there is been interval development of a new left pleural effusion, right pleural effusion persists.
== END | disposition home or self-care (01) ==
LOC: RADCTMAIN 11:39
PROVIDERS: ATTEND Internal Medicine Critical Care Medicine
DX: C85.90 Non-Hodgkin lymphoma, unspecified, unspecified site (principal); R59.0 Localized enlarged lymph nodes; D86.9 Sarcoidosis, unspecified; J90 Pleural effusion, not elsewhere classified; R93.89 Abnormal findings on diagnostic imaging of other specified body structures
CPT/HCPCS: 82565; 84520; 71260; 36415; Q9967

== ENCOUNTER → 2021-05-13 | Outpatient (CLI) | payer MEDICARE, OTHER ==
--- NOTE | 2021-05-14 13:50 | MM ---
Reason for exam: screening (asymptomatic). Last mammogram was performed 1 year and 1 month ago. History: Patient is postmenopausal. Physical Findings: A clinical breast exam by your physician is recommended on an annual basis and results should be correlated with mammographic findings. MG Screening Mammo w CAD Bilateral CC and MLO view(s) were taken. Prior study comparison: March 31, 2020, bilateral MG screening mammo w CAD. September 17, 2018, right breast MG diagnostic mammo RT w CAD. There are scattered fibroglandular densities. There is chronic nodularity in the right breast anterior and laterally. No significant changes when compared with prior studies. ASSESSMENT: Benign, BI-RAD 2 RECOMMENDATION: Routine screening mammogram of both breasts in 1 year.
== END | disposition home or self-care (01) ==
LOC: RADMAMWWP 15:45
PROVIDERS: ATTEND Family Medicine
DX: Z12.31 Encounter for screening mammogram for malignant neoplasm of breast (principal); Z78.0 Asymptomatic menopausal state
CPT/HCPCS: 77067

== ENCOUNTER → 2022-03-21 | Outpatient (CLI) | payer MEDICARE, OTHER ==
[2022-03-21 23:45] LABS: African American GFR (CKD) 48.4 (60.0-200.0); BUN/Creat Ratio 20.55 Ratio (12.00-20.00); Blood Urea Nitrogen 26.3 mg/dL (9.0-27.0); Carbon Dioxide 30.6 mmol/L (20.0-27.5); Chloride 100 mmol/L (96-109); Glucose 208 mg/dL (70-110); Magnesium 1.3 mg/dL (1.5-2.4); Non-African American GFR(CKD) 41.7 (60.0-200.0); Potassium 5.3 mmol/L (3.5-5.5); Sodium 139 mmol/L (135-145)
== END | disposition home or self-care (01) ==
LOC: LABWHC1 14:01
PROVIDERS: ATTEND Nurse Practitioner
DX: R00.0 Tachycardia, unspecified (principal)
CPT/HCPCS: 36415; 80048; 83735; 84443

== ENCOUNTER → 2022-05-05 | Outpatient (CLI) | payer MEDICARE, OTHER ==
--- NOTE | 2022-05-05 16:36 | CT ---
EXAMINATION TYPE: CT abdomen pelvis w con CT DLP: 1502 mGycm, Automated exposure control for dose reduction was used. DATE OF EXAM: 05/05/2022 3:19 PM COMPARISON: PET/CT 01/09/2019, MRI lumbar spine 04/23/2022.r CLINICAL INDICATION:Female, 71 years old with history of R59.1 Generalized enlarged lymph nodes; Back pain, pt mentioned possible abnormal findings from previous imaging TECHNIQUE: Axial CT of the abdomen and pelvis. Sagittal and coronal reformats were created on a [employer] workstation. Contrast used:80 mL of Isovue 300 with IV Contrast, Oral contrast used: with Oral Contrast FINDINGS: LOWER CHEST: Small right pleural effusion. ABDOMEN LIVER: Unremarkable GALLBLADDER AND BILE DUCTS: Unremarkable. PANCREAS: Unremarkable. SPLEEN: Unremarkable. ADRENAL GLANDS: Unremarkable. KIDNEYS AND URETERS: No evidence of obstructive uropathy. Nonobstructing bilateral renal calculi danilo uring up to 2 mm on the right and 3 mm on the left. PELVIS BLADDER: Unremarkable REPRODUCTIVE: Left ovarian cyst measuring up to 3.7 cm. The uterus is not visualized and is likely salazar rgically absent. ABDOMEN & PELVIS STOMACH AND BOWEL: No evidence of bowel obstruction. No bowel wall thickening. PERITONEUM/RETROPERITONEUM: No evidence of pneumoperitoneum or free fluid. VASCULATURE: Mild atherosclerotic calcifications are present throughout the abdominal aorta and its b ranches. No evidence of aortic aneurysm. MUSCULOSKELETAL: No acute osseous abnormalities. Moderate disc degeneration changes are present throu ghout the thoracolumbar spine. Degeneration changes of the sacroiliac joint and bilateral hips. LYMPH NODES: Stable left renal sinus lymph node measuring up to 9 mm in short axis., Stable right morgan al sinus lymph node measuring up to 5 mm in short axis. SOFT TISSUE/ABDOMINAL WALL: Postsurgical changes anterior abdominal wall IMPRESSION: 1. Stable lymphadenopathy dating back to 11/30/2018 PET/CT. 2. Persistent small right pleural effusion. 3. Left ovarian cyst measuring up to 3.7 cm which is decreased from 2019 where it measured 4.4 cm. 4. No obstructing bilateral renal calculi.
== END | disposition home or self-care (01) ==
LOC: RADCTMAIN 09:39
PROVIDERS: ATTEND Family Medicine
DX: J90 Pleural effusion, not elsewhere classified (principal); N83.202 Unspecified ovarian cyst, left side; I10 Essential (primary) hypertension; R59.1 Generalized enlarged lymph nodes
CPT/HCPCS: 82565; 84520; 74177; Q9967

== ENCOUNTER 2022-06-24 08:51 | Inpatient (IN) | payer MEDICARE, OTHER ==
[2022-06-24] MEDS ORDERED: SODIUM CHLORIDE 0.9% 500 ML 500 ML IV STA (09:05)
--- NOTE | 2022-06-24 09:24 | CT ---
EXAMINATION TYPE: CT brain wo con DATE OF EXAM: 06/24/2022 COMPARISON: None HISTORY: 71-year-old female neurologic deficit, acute, stroke suspected, left side weakness TECHNIQUE: Examination was done in axial plane without intravenous contrast. Coronal and sagittal r econstructions performed. CT DLP: 1102.6 mGycm Automated exposure control for dose reduction was used. FINDINGS: Prominent metal artifact relating to a couple aneurysm clips, one in the region of the distal M1 segm ent right MCA and one in the region of the left carotid terminus. Moderate patchy and confluent white matter hypodensities in both cerebral hemispheres. Allowing for the metal artifacts, there is no convincing evidence of acute intracranial hemorrhage, a cute ischemic changes, mass, mass-effect, or extra-axial fluid collection. There is no effacement of cerebral sulci or basal subarachnoid cisterns. There is no hydrocephalus. There is no midline shif t. Devi-white matter distinction is preserved. Leftward nasal septal deviation. Paranasal sinuses and mastoid air cells are pneumatized. IMPRESSION: Prominent aneurysm clip artifacts on both sides. On the left, in the region of the left carotid termi nus. On the right, in the region of the MCA bifurcation. No definite acute intracranial abnormality s een.
[2022-06-24 09:26] LABS: Glucose,Whole Blood 160 mg/dL (70-110)
[2022-06-24 09:37] LABS: Basophils % (A) 0 %; Eosinophils # (A) 0.5 k/uL (0-0.7); Eosinophils % (A) 7 %; HCT 38.7 % (34.0-46.0); HGB 12.6 gm/dL (11.4-16.0); Lymphocytes # (A) 1.5 k/uL (1.0-4.8); Lymphocytes % (A) 19 %; MCH 29.9 pg (25.0-35.0); MCHC 32.6 g/dL (31.0-37.0); MCV 91.7 fL (80.0-100.0); Mean Platelet Volume 7.6; Monocytes # (A) 0.5 k/uL (0-1.0); Monocytes % (A) 6 %; Neutrophils # (A) 4.9 k/uL (1.3-7.7); Neutrophils % (A) 64 %; Platelet Count 161 k/uL (150-450); RBC 4.22 m/uL (3.80-5.40); RDW 12.9 % (11.5-15.5); WBC 7.7 k/uL (3.8-10.6)
[2022-06-24 09:47] LABS: Prothrombin Time 10.7 sec (9.0-12.0)
[2022-06-24 09:48] LABS: Partial Thromboplastin Time 22.8 sec (22.0-30.0)
--- NOTE | 2022-06-24 09:51 | ED ---
General Adult HPI - General Chief complaint: Neuro Symptoms/Deficit Stated complaint: Left side numbness Time Seen by Provider: 06/24/22 08:55 Source: patient, RN notes reviewed, old records reviewed Mode of arrival: wheelchair Limitations: no limitations - History of Present Illness Initial comments: This is a 71-year-old female presents emergency department stating that she has a tingling and decreased sensation on her left side. Patient states started last night. Patient states it's in her arm but not her hand is also in her leg down to her foot. Patient states she also has some decreased sensation in the left side of her face per patient has no facial droop but according to her primary medical care doctor who sent her over here she has had a little slurred speech in the office but it is currently resolved. Patient denies any recent fever chills or cough per patient denies any headache patient denies any chest pain or difficulty breathing shortness of breath. Patient denies abdominal pain patient denies nausea vomiting diarrhea - Related Data Home Medications Medication Instructions Recorded Confirmed Enalapril Maleate 2.5 mg PO QAM 05/16/14 12/25/20 Aspirin 81 mg PO DAILY 12/08/16 12/25/20 Atorvastatin Calcium [Lipitor] 10 mg PO QAM 12/08/16 12/25/20 Glimepiride [Amaryl] 2 mg PO BID 04/02/18 12/25/20 Metoprolol Tartrate [Lopressor] 50 mg PO 1200 04/02/18 12/25/20 Insulin Glargine/Lixisenatide 60 units SQ QAM 12/03/18 12/25/20 [Soliqua 100 Unit-33 Mcg/ml Pen] Calcium Carbonate [Calcium] 600 mg PO DAILY 12/22/20 12/25/20 Metoprolol Tartrate [Lopressor] 75 mg PO BID 12/22/20 12/25/20 Previous Rx's Medication Instructions Recorded Acetaminophen Tab [Tylenol Tab] 1,000 mg PO Q6HR PRN #30 tablet 12/25/20 Ibuprofen [Motrin] 600 mg PO Q8HR PRN #30 tab 12/25/20 Simethicone [Gas-X] 125 mg PO AC-TID PRN #20 capsule 12/25/20 Omeprazole [PriLOSEC] 40 mg PO DAILY #14 cap 01/05/21 Allergies Allergy/AdvReac Type Severity Reaction Status Date / Time No Known Allergies Allergy Verified 06/24/22 08:55 Review of Systems ROS Statement: Those systems with pertinent positive or pertinent negative responses have been documented in the HPI. ROS Other: All systems not noted in ROS Statement are negative. Past Medical History Past Medical History: CVA/TIA, Diabetes Mellitus, Eye Disorder Additional Past Medical History / Comment(s): CLOSED HEAD INJURY 2017. BRAIN ANEURYSMS. Glaucoma. Migraines. TIA-no residual effects, heart murmer, "occ extra heart beat". SOB (UNKNOWN CAUSE, HAS BEEN TO 2 SPECIALISTS, UNABLE DETERMINE CAUSE). History of Any Multi-Drug Resistant Organisms: None Reported Past Surgical History: Hysterectomy, Tonsillectomy Additional Past Surgical History / Comment(s): brain aneurysm repair X 2. laproscopic procedure. BILATERAL CATARACT/LENS. PLEAURAL effusion right side with thorancentesis Past Anesthesia/Blood Transfusion Reactions: No Reported Reaction Past Psychological History: No Psychological Hx Reported Smoking Status: Never smoker Past Alcohol Use History: None Reported Past Drug Use History: None Reported - Past Family History Father Family Medical History: Cancer, Deep Vein Thrombosis (DVT) Additional Family Medical History / Comment(s): prostate Mother Family Medical History: Cancer Additional Family Medical History / Comment(s): colon Brother(s) Family Medical History: Cancer General Exam - General Exam Comments Initial Comments: GENERAL: Patient is well-developed and well-nourished. Patient is nontoxic and well- hydrated and is in no acute distress. ENT: Neck is soft and supple. No significant lymphadenopathy is noted. Oropharynx is clear. Moist mucous membranes. Neck has full range of motion without eliciting any pain. EYES: The sclera were anicteric and conjunctiva were pink and moist. Extraocular movements were intact and pupils were equal round and reactive to light. Eyelids were unremarkable. PULMONARY: Unlabored respirations. Good breath sounds bilaterally. No audible rales rhonchi or wheezing was noted. CARDIOVASCULAR: There is a regular rate and rhythm without any murmurs gallops or rubs. ABDOMEN: Soft and nontender with normal bowel sounds. SKIN: Skin is clear with no lesions or rashes and otherwise unremarkable. NEUROLOGIC: Patient is alert and oriented x3. Cranial nerves II through XII are grossly intact. Motor and sensory are also intact. Normal speech, volume and content. Symmetrical smile. Patient has decreased sensation in the arm and leg as well as on the left side of the face and H is 1. Patient has no appreciable weakness or facial droop or slurred speech MUSCULOSKELETAL: Normal extremities with adequate strength and full range of motion. No lower extremity swelling or edema. No calf tenderness. LYMPHATICS: No significant lymphadenopathy is noted PSYCHIATRIC: Normal psychiatric evaluation. Limitations: no limitations Course Vital Signs 06/24/22 06/24/22 08:52 10:20 Temperature 97.9 F Pulse Rate 76 78 Respiratory 20 18 Rate Blood Pressure 146/64 149/66 O2 Sat by Pulse 99 95 Oximetry Medical Decision Making - Medical Decision Making EKG is interpreted by myself EKG shows a sinus rhythm at 82 bpm W[place] interval 252 QRS is 91 QT interval 360 QTC is 47. Patient's EKG shows no ST segment elevation or depression. Was pt. sent in by a medical professional or institution (, PA, CABIN SERVICE AGENT, urgent care, hospital, or longterm...) When possible be specific @ -Dr. Stanley sent the patient Did you speak to anyone other than the patient for history (EMS, parent, family, police, friend...)? What history was obtained from this source @ -Poke with Dr. Stanley about the patient's symptoms Did you review nursing and triage notes (agree or disagree)? Why? @ -I reviewed and agree with nursing and triage notes Were old charts reviewed (outside hosp., previous admission, EMS record, old EKG, old radiological studies, urgent care reports/EKG's, longterm records)? Report findings @ -I reviewed prior charts prior labwork on this patient Differential Diagnosis (chest pain, altered mental status, abdominal pain women, abdominal pain men, vaginal bleeding, weakness, fever, dyspnea, syncope, headache, dizziness, GI bleed, back pain, seizure, CVA, palpatations, mental health, musculoskeletal)? @ -Differential CVA Ischemic stroke, hemorrhagic stroke, brain tumor, atypical migraine, Wernicke's encephalopathy, seizure, multiple sclerosis, meningitis, encephalitis, hypoglycemia, Guillain-Rodriguez, electrolytes disturbance, myasthenia gravis.... This is not meant to be an all-inclusive list EKG interpreted by me (3pts min.). @ -As above X-rays interpreted by me (1pt min.). @ -Chest x-ray was interpreted by myself I see patient has a right sided pleural effusion CT interpreted by me (1pt min.). @ -Patient's CT of the brain which I interpreted. Patient's CT brain shows no acute normalities. There was some old clips from prior surgery for aneurysms Patient is CTA of the head and neck that was interpreted by radiology and they saw no significant abnormalities to explain the patient's symptoms today U/S interpreted by me (1pt. min.). @ -None done What testing was considered but not performed or refused? (CT, X-rays, U/S, labs)? Why? @ -None What meds were considered but not given or refused? Why? @ -None Did you discuss the management of the patient with other professionals (professionals i.e. , PA, CABIN SERVICE AGENT, lab, RT, psych nurse, certified social workers in health care, criminalist technician, teacher, naval gunfire liaison officer, bilingual case manager)? Give summary @ -Spoke to the neuro interventional states agreed that the patient did not need alteplase and that we should just do medical management of the patient. I spoke with Dr. Grace he agreed to admit the patient admitted the patient wrote admitting orders Was smoking cessation discussed for >3mins.? @ -No Was critical care preformed (if so, how long)? @ -35 minutes Were there social determinants of health that impacted care today? How? (Homelessness, low income, unemployed, alcoholism, drug addiction, transportation, low edu. Level, literacy, decrease access to med. care, [facility], rehab)? @ -No Was there de-escalation of care discussed even if they declined (Discuss DNR or withdrawal of care, Hospice)? DNR status @ -No What co-morbidities impacted this encounter? (DM, HTN, Smoking, COPD, CAD, Cance r, CVA, ARF, Chemo, Hep., AIDS, mental health diagnosis, sleep apnea, morbid obesity)? @ -None Was patient admitted / discharged? Hospital course, mention meds given and route, prescriptions, significant lab abnormalities, going to OR and other pertinent info. @ -Patient had strokelike symptoms and a code stroke was called overhead upon arrival. Patient is CT of the brain and a CT angiogram of the head and neck. Patient's scan showed no explanation for her symptoms. Patient's symptoms remained the same throughout her ED course. Patient was a NIH of 1. I spoke with Dr. Grace he agreed to admit the patient admitted the patient wrote admitting orders I gave the patient aspirin Lipitor and I consult the neurology Undiagnosed new problem with uncertain prognosis? @ -No Drug Therapy requiring intensive monitoring for toxicity (Heparin, Nitro, Insulin, Cardizem)? @ -No Were any procedures done? @ -No Diagnosis/symptom? @ -CVA Acute, or Chronic, or Acute on Chronic? @ -Acute Uncomplicated (without systemic symptoms) or Complicated (systemic symptoms)? @ -Complicated Side effects of treatment? @ -No Exacerbation, Progression, or Severe Exacerbation? @ -No Poses a threat to life or bodily function? How? (Chest pain, [place], [place], pneumonia, PE, COPD, DKA, ARF, appy, cholecystitis, CVA, Diverticulitis, Homicidal, Suicidal, threat to staff... and all critical care pts) @ -Yes this could lead to significant morbidity and/or mortality - Lab Data Result diagrams: 06/24/22 09:27 06/24/22 09:27 Lab Results 06/24/22 06/24/22 06/24/22 Range/Units 09:25 09:27 09:27 WBC 7.7 (3.8-10.6) k/uL RBC 4.22 (3.80-5.40) m/uL Hgb 12.6 (11.4-16.0) gm/dL Hct 38.7 (34.0-46.0) % MCV 91.7 (80.0-100.0) fL MCH 29.9 (25.0-35.0) pg MCHC 32.6 (31.0-37.0) g/dL RDW 12.9 (11.5-15.5) % Plt Count 161 (150-450) k/uL MPV 7.6 Neutrophils % 64 % Lymphocytes % 19 % Monocytes % 6 % Eosinophils % 7 % Basophils % 0 % Neutrophils # 4.9 (1.3-7.7) k/uL Lymphocytes # 1.5 (1.0-4.8) k/uL Monocytes # 0.5 (0-1.0) k/uL Eosinophils # 0.5 (0-0.7) k/uL Basophils # 0.0 (0-0.2) k/uL PT 10.7 (9.0-12.0) sec INR 1.0 (<1.2) APTT 22.8 (22.0-30.0) sec Sodium (137-145) mmol/L Potassium (3.5-5.1) mmol/L Chloride (98-107) mmol/L Carbon Dioxide (22-30) mmol/L Anion Gap mmol/L BUN (7-17) mg/dL Creatinine (0.52-1.04) mg/dL Est GFR (CKD-EPI)AfAm (>60 ml/min/1.73 sqM) Est GFR (CKD-EPI)NonAf (>60 ml/min/1.73 sqM) Glucose (74-99) mg/dL POC Glucose (mg/dL) 160 H (70-110) mg/dL POC Glu Lens Assistant Ashtyn Jackson Calcium (8.4-10.2) mg/dL Total Bilirubin (0.2-1.3) mg/dL AST (14-36) U/L ALT (4-34) U/L Alkaline Phosphatase (38-126) U/L Creatine Kinase (30-135) U/L Troponin I (0.000-0.034) ng/mL Total Protein (6.3-8.2) g/dL Albumin (3.5-5.0) g/dL 06/24/22 06/24/22 Range/Units 09:27 09:27 WBC (3.8-10.6) k/uL RBC (3.80-5.40) m/uL Hgb (11.4-16.0) gm/dL Hct (34.0-46.0) % MCV (80.0-100.0) fL MCH (25.0-35.0) pg MCHC (31.0-37.0) g/dL RDW (11.5-15.5) % Plt Count (150-450) k/uL MPV Neutrophils % % Lymphocytes % % Monocytes % % Eosinophils % % Basophils % % Neutrophils # (1.3-7.7) k/uL Lymphocytes # (1.0-4.8) k/uL Monocytes # (0-1.0) k/uL Eosinophils # (0-0.7) k/uL Basophils # (0-0.2) k/uL PT (9.0-12.0) sec INR (<1.2) APTT (22.0-30.0) sec Sodium 136 L (137-145) mmol/L Potassium 4.1 (3.5-5.1) mmol/L Chloride 104 (98-107) mmol/L Carbon Dioxide 28 (22-30) mmol/L Anion Gap 4 mmol/L BUN 23 H (7-17) mg/dL Creatinine 1.00 (0.52-1.04) mg/dL Est GFR (CKD-EPI)AfAm 66 (>60 ml/min/1.73 sqM) Est GFR (CKD-EPI)NonAf 57 (>60 ml/min/1.73 sqM) Glucose 154 H (74-99) mg/dL POC Glucose (mg/dL) (70-110) mg/dL POC Glu Lens Assistant ID Calcium 8.3 L (8.4-10.2) mg/dL Total Bilirubin 0.5 (0.2-1.3) mg/dL AST 23 (14-36) U/L ALT 17 (4-34) U/L Alkaline Phosphatase 60 (38-126) U/L Creatine Kinase 24 L (30-135) U/L Troponin I <0.012 (0.000-0.034) ng/mL Total Protein 5.8 L (6.3-8.2) g/dL Albumin 3.1 L (3.5-5.0) g/dL Critical Care Time Critical Care Time: Yes Total Critical Care Time: 35 Disposition Clinical Impression: Cerebrovascular accident (CVA) Disposition: ADMITTED IP TO THIS HOSP Referrals: Donald Stanley MD [Primary Care Provider] - 1-2 days Time of Disposition: 11:22
--- NOTE | 2022-06-24 09:56 | CT ---
EXAMINATION TYPE: CT angio head neck DATE OF EXAM: 06/24/2022 COMPARISON: CT chest 01/29/2020 HISTORY: 71-year-old female with neurologic deficit, every, stroke suspected. TECHNIQUE: Contiguous axial scanning of the head and neck performed with IV Contrast, patient injecte d with 65 mL of Isovue 370. Coronal/sagittal reconstructions performed. 3-D reconstructions generated on an independent workstation. CT DLP: 400 mGycm Automated exposure control for dose reduction was used. FINDINGS: NECK: Redemonstrated moderate right pleural effusion as compared to 01/28/2021 as well as hilar and mediasti nal lymphadenopathy measuring up to 2.1 cm. There is conventional arterial branching anatomy. The vertebral arteries are patent and codominant. The bilateral common and internal carotid arteries are widely patent by NASCET criteria. HEAD: The vertebral and basilar arteries as well as the remainder of the posterior circulation is patent. Mild scattered calcifications in the bilateral carotid siphons. There is moderate segmental stenosis distal left ICA and moderate throughout the proximal to mid M1 segment left MCA. Suspect short segment stent proximal M1 segment right MCA which was adequate distal opacification bot h possible moderate narrowing. Remainder of the anterior circulation is patent. IMPRESSION: NECK: 1. WIDELY PATENT VERTEBRAL AND CAROTID ARTERIES OF THE NECK. 2. MODERATE RIGHT PLEURAL EFFUSION WELL BILATERAL HILAR AND MEDIASTINAL LYMPHADENOPATHY MEASURI NG UP TO 2.1 CM. APPEARANCE IS SIMILAR TO THAT OF 02/07/2021. CLINICALLY CORRELATE. HEAD: 3. On the left, aneurysm clip at the carotid terminus. There is segmental moderate atherosclerotic na rrowing involving the distal left MCA as well as the proximal to mid M1 segment left MCA. 4. On the right, clip at the M1 bifurcation. Possible short segment stent proximal M1 segment right M CA where there may be focal moderate stenosis. 5. No large vessel intracranial arterial occlusion or aneurysmal change clearly identified.
--- NOTE | 2022-06-24 10:11 | XR ---
EXAMINATION TYPE: XR chest 2V DATE OF EXAM: 06/24/2022 COMPARISON: 12/20/2018 HISTORY: 71-year-old female confusion, altered mental status TECHNIQUE: AP and lateral views FINDINGS: Heart normal size. New small right pleural effusion. Possible collapse of the right middle lobe on th e lateral view. Wide superior mediastinum compatible with underlying mediastinal lymphadenopathy. IMPRESSION: Known mediastinal lymphadenopathy. New small right pleural effusion. Possible right middle lobe pneum onia or collapse.
--- NOTE | 2022-06-24 10:59 | P.HPIM ---
History of Present Illness This is a pleasant 71 years old female with past medical history of CVA/TIA and diabetes mellitus, brain aneurysms, and migraines Sent by her PCP Dr. Stanley for left side numbness that started 9 PM last night involving her left face left arm and left leg with no weakness direct dizziness. No slurred speech or blurred vision. Patient denies any other symptom no chest pain dyspnea. No change in urine or bowel habits. No fever. She denies smoking alcohol or illicits Vitals are stable and patient is afebrile CBC, INR are unremarkable. Troponin is negative. EKG showing normal sinus rhythm at [address] changes Chest x-ray: No acute process. Known mediastinal lymphadenopathy. Small right pleural effusion. Possible right middle lobe pneumonia or collapse CT of the [place]: Permanent aneurysm clip artifact on both sides. On the left, in the region of the left carotid terminus. On the right in the region of the MCA bifurcation. No definite acute intracranial abnormality seen CTA of the head and neck: Widely patent vertebral and carotid arteries of the neck. Moderate right pleural effusion as well as bilateral hilar and mediastinal lymphadenopathy measuring up to 2.1 cm apparently similar to that off 02/07/2021. CTA of the head: On the left aneurysm clip at the carotid terminus on the right hip at the M1 bifurcation. No large vessel intracranial arterial occlusion or aneurysm. Review of Systems Review of systems CONSTITUTIONAL: No fever, no malaise, no fatigue. HEENT: No recent visual problems or hearing problems. Denied any sore throat. CARDIOVASCULAR: No orthopnea, PND, no palpitations, no syncope. PULMONARY: No shortness of breath, no cough, no hemoptysis. GASTROINTESTINAL: No diarrhea, no nausea, no vomiting, no abdominal pain. Normoactive bowel sounds. NEUROLOGICAL: No headaches, no weakness, no numbness. HEMATOLOGICAL: Denies any bleeding or petechiae. GENITOURINARY: Denies any burning micturition, frequency, or urgency. MUSCULOSKELETAL/RHEUMATOLOGICAL: Denies any joint pain, swelling, or any muscle pain. ENDOCRINE: Denies any polyuria or polydipsia. Past Medical History Past Medical History: CVA/TIA, Diabetes Mellitus, Eye Disorder Additional Past Medical History / Comment(s): CLOSED HEAD INJURY 2017. BRAIN ANEURYSMS. Glaucoma. Migraines. TIA-no residual effects, heart murmer, "occ extra heart beat". SOB (UNKNOWN CAUSE, HAS BEEN TO 2 SPECIALISTS, UNABLE DETERMINE CAUSE). History of Any Multi-Drug Resistant Organisms: None Reported Past Surgical History: Hysterectomy, Tonsillectomy Additional Past Surgical History / Comment(s): brain aneurysm repair X 2. laproscopic procedure. BILATERAL CATARACT/LENS. PLEAURAL effusion right side with thorancentesis Past Anesthesia/Blood Transfusion Reactions: No Reported Reaction Past Psychological History: No Psychological Hx Reported Smoking Status: Never smoker Past Alcohol Use History: None Reported Past Drug Use History: None Reported - Past Family History Father Family Medical History: Cancer, Deep Vein Thrombosis (DVT) Additional Family Medical History / Comment(s): prostate Mother Family Medical History: Cancer Additional Family Medical History / Comment(s): colon Brother(s) Family Medical History: Cancer Medications and Allergies Home Medications Medication Instructions Recorded Confirmed Type Enalapril Maleate 2.5 mg PO QAM 05/16/14 12/25/20 History Aspirin 81 mg PO DAILY 12/08/16 12/25/20 History Atorvastatin Calcium [Lipitor] 10 mg PO QAM 12/08/16 12/25/20 History Glimepiride [Amaryl] 2 mg PO BID 04/02/18 12/25/20 History Metoprolol Tartrate [Lopressor] 50 mg PO 1200 04/02/18 12/25/20 History Insulin Glargine/Lixisenatide 60 units SQ QAM 12/03/18 12/25/20 History [Soliqua 100 Unit-33 Mcg/ml Pen] Calcium Carbonate [Calcium] 600 mg PO DAILY 12/22/20 12/25/20 History Metoprolol Tartrate [Lopressor] 75 mg PO BID 12/22/20 12/25/20 History Acetaminophen Tab [Tylenol Tab] 1,000 mg PO Q6HR PRN #30 tablet 12/25/20 Rx Ibuprofen [Motrin] 600 mg PO Q8HR PRN #30 tab 12/25/20 Rx Simethicone [Gas-X] 125 mg PO AC-TID PRN #20 capsule 12/25/20 Rx Omeprazole [PriLOSEC] 40 mg PO DAILY #14 cap 01/05/21 Rx Allergies Allergy/AdvReac Type Severity Reaction Status Date / Time No Known Allergies Allergy Verified 06/24/22 08:55 Physical Exam Vitals: Vital Signs Temp Pulse Resp BP Pulse Ox 06/24/22 10:20 78 18 149/66 95 06/24/22 08:52 97.9 F 76 20 146/64 99 Intake and Output 06/23/22 06/24/22 06/24/22 22:59 06:59 14:59 Other: Weight 72.575 kg GENERAL: The patient is alert and oriented x3, not in any acute distress. Well developed, well nourished. HEENT: Pupils are round and equally reacting to light. EOMI. No scleral icterus. No conjunctival pallor. Normocephalic, atraumatic. No pharyngeal erythema. No thyromegaly. CARDIOVASCULAR: S1 and S2 present. No murmurs, rubs, or gallops. PULMONARY: Chest is clear to auscultation, no wheezing or crackles. ABDOMEN: Soft, nontender, nondistended, normoactive bowel sounds. No palpable organomegaly. MUSCULOSKELETAL: No joint swelling or deformity. EXTREMITIES: No cyanosis, clubbing, or pedal edema. NEUROLOGICAL: Gross neurological examination did not reveal any focal deficits. SKIN: No rashes. no petechiae. Results CBC & Chem 7: 06/24/22 09:27 Labs: Abnormal Lab Results - Last 24 Hours (Table) 06/24/22 Range/Units 09:25 POC Glucose (mg/dL) 160 H (70-110) mg/dL Assessment and Plan Assessment: Left side Numbness, rule out TIA vs others Diabetes mellitus Chronic Bilateral hilar and Mediastinal lymphadenopathy with right middle lobe collapse, most likely pneumonia with no symptoms, no fever and no leukocytosis History of brain aneurysm History of migraine Plan: Continue with aspirin (once verified her medication) Neuro consult Labs and medication were reviewed.. Continue same treatment. Continue with symptomatic treatment. Resume home medication. Monitor labs and vitals. DVT and GI prophylaxis. Further recommendations as per clinical course of the patient DVT prophylaxis: Subcutaneous heparin GI Prophylaxis: Pepcid Prognosis is guarded
[2022-06-24 11:01] LABS: Albumin 3.1 g/dL (3.5-5.0); Calcium 8.3 mg/dL (8.4-10.2); Potassium 4.1 mmol/L (3.5-5.1); Total Bilirubin 0.5 mg/dL (0.2-1.3); Total Protein 5.8 g/dL (6.3-8.2)
[2022-06-24] MEDS ORDERED: ASPIRIN 325 MG TAB PO STA (11:32)
[2022-06-24 20:05] LABS: Glucose,Whole Blood 245 mg/dL (70-110)
[2022-06-24] MEDS ORDERED: DEXTROSE 50% SYRINGE 50 ML IVP PRN ×2 (20:15)
[2022-06-24] MEDS ORDERED: ACETAMINOPHEN TAB 325 MG TAB PO PRN (20:19)
[2022-06-24] MEDS ORDERED: ONDANSETRON 4 MG/2 ML VIAL IVP PRN (20:19)
[2022-06-24] MEDS: GLIMEPIRIDE 2 MG TAB PO SCH (20:56)
[2022-06-24] MEDS ORDERED: CLOPIDOGREL 75 MG TAB PO STA (20:56)
[2022-06-24] MEDS: METOPROLOL TARTRATE 25 MG TAB PO SCH (20:57)
[2022-06-24] MEDS: ATORVASTATIN 80 MG TAB PO SCH (20:58)
[2022-06-24] MEDS: CALCIUM CARBONATE 500 MG CHEWABLE PO SCH (20:59)
[2022-06-24] MEDS: INSULIN DETEMIR (LEVEMIR) 100 UNIT/ML SYR SQ SCH (20:59)
[2022-06-24] MEDS: INSULIN ASPART (NovoLOG) 100 UNIT/ML VIAL SQ SCH (21:00)
--- NOTE | 2022-06-24 21:03 | P.CNNES ---
History of Present Illness Consult date: 06/24/22 Requesting physician: Rigoberto Toth Reason for Consult: CVA History of Present Illness: Patient is a 71-year-old right-handed female, with history of hypertension, cerebral aneurysm, status post clipping on 12/08/2016 at [facility], came to the hospital today at 8:51 AM for strokelike symptoms. Patient states that her symptoms started last night at midnight when she noticed tingling involving the left ankle, calf region extending to the left below-knee. Shortly after that left arm also started tingling. Also has some tingling of the left facial region. This morning, she went to her primary physician's office at 8:10 AM. Patient has slight hesitant speech, which is new, without any slurring, or difficulty finding words. Denies any focal weakness or visual problems. Patient was referred to ER by primary physician. Vital signs on arrival blood pressure 146/64, pulse rate 76, temperature 97.9. Blood test shows normal CBC, PT/PTT, sodium 136 potassium 4.1, BU and 23 creatinine 1.0. Hepatic panel is normal, CK 24, troponin negative. CT head revealed a prominent aneurysm clip artifact on both sides. On the left, in the region of the left carotid terminus. On the right, in the region of the MCA bifurcation. No definite acute intracranial abnormality seen. I personally reviewed CT head, agree with the findings. Chest x-ray revealed known mediastinal lymphadenopathy. New small right pleural effusion. Possible right middle lobe pneumonia or collapse. EKG shows normal sinus rhythm. Patient has history of unruptured cerebral aneurysm diagnosed on 12/08/2016. She had a CT head performed for headaches, which revealed saccular aneurysm. There were total 4 aneurysms including the larger saccular and 3 smaller aneurysm. She was transferred to [facility], and underwent aneurysm clipping by Dr. Padilla. Patient has history of diabetes since 1999, which is controlled. Denies hypertension or hyperlipidemia. She has never smoked, does not drink alcohol. Patient's mother has history of CVA. Patient does take aspirin every day and is compliant. Patient at present still has tingling involving left side. Review of Systems Constitutional: Denies chills, Denies fever Eyes: denies blurred vision, denies pain Ears: deny: decreased hearing, ear discharge, earache Ears, nose, mouth and throat: Denies headache, Denies sore throat Cardiovascular: Reports shortness of breath, Denies chest pain Respiratory: Reports cough (cough when eats), Denies excessive sputum Gastrointestinal: Denies abdominal pain, Denies diarrhea, Denies nausea, Denies vomiting Genitourinary: Denies dysuria, Denies hematuria Musculoskeletal: Reports low back pain, Denies frequent falls, Denies myalgias, Denies neck pain Integumentary: Denies pruritus, Denies rash Psychiatric: Denies anxiety, Denies depression Endocrine: Denies fatigue, Denies weight change Hematologic/Lymphatic: Denies easy bleeding, Denies easy bruising Past Medical History Past Medical History: CVA/TIA, Diabetes Mellitus, Eye Disorder Additional Past Medical History / Comment(s): CLOSED HEAD INJURY 2017. BRAIN ANEURYSMS. Glaucoma. Migraines. TIA-no residual effects, heart murmer, "occ extra heart beat". SOB (UNKNOWN CAUSE, HAS BEEN TO 2 SPECIALISTS, UNABLE DETERMINE CAUSE). History of Any Multi-Drug Resistant Organisms: None Reported Past Surgical History: Hysterectomy, Tonsillectomy Additional Past Surgical History / Comment(s): brain aneurysm repair X 2. laproscopic procedure. BILATERAL CATARACT/LENS. PLEAURAL effusion right side with thorancentesis Past Anesthesia/Blood Transfusion Reactions: No Reported Reaction Past Psychological History: No Psychological Hx Reported Smoking Status: Never smoker Past Alcohol Use History: None Reported Past Drug Use History: None Reported - Past Family History Father Family Medical History: Cancer, Deep Vein Thrombosis (DVT) Additional Family Medical History / Comment(s): prostate Mother Family Medical History: Cancer Additional Family Medical History / Comment(s): colon Brother(s) Family Medical History: Cancer Medications and Allergies Home Medications Medication Instructions Recorded Confirmed Type Enalapril Maleate 2.5 mg PO DAILY 05/16/14 06/24/22 History Aspirin 81 mg PO DAILY 12/08/16 06/24/22 History Atorvastatin Calcium [Lipitor] 10 mg PO DAILY 12/08/16 06/24/22 History Metoprolol Tartrate [Lopressor] 75 mg PO TID 04/02/18 06/24/22 History Insulin Glargine/Lixisenatide 42 units SQ DAILY 12/03/18 06/24/22 History [Soliqua 100 Unit-33 Mcg/ml Pen] Calcium Carbonate [Calcium] 600 mg PO BID 12/22/20 06/24/22 History Glimepiride [Amaryl] 2 mg PO BID 06/24/22 06/24/22 History Allergies Allergy/AdvReac Type Severity Reaction Status Date / Time No Known Allergies Allergy Verified 06/24/22 12:09 Physical Examination - Vital Signs Vital Signs: Vital Signs Temp Pulse Resp BP Pulse Ox 06/24/22 11:00 96 18 147/69 100 06/24/22 10:20 78 18 149/66 95 06/24/22 08:52 97.9 F 76 20 146/64 99 Intake and Output 06/23/22 06/24/22 06/24/22 22:59 06:59 14:59 Other: Weight 72.575 kg Patient is an elderly female, in no acute distress. Patient is alert awake oriented to time place and person. Speech and language functions are normal. Patient sometimes has slight hesitancy. Patient can name and repeat very well. No aphasia or dysarthria. Attention, concentration and fund of knowledge is adequate. On cranial nerve examination, pupils are equal, round and reacting to light, visual salmon are full on confrontation, with no neglect on double simultaneous stimulation. Extraocular muscles are intact with no nystagmus. Face is symmetric, tongue protrudes to the midline. Palatal elevation and sensation normal, hearing and shoulder shrug normal, facial sensation normal. On muscle strength testing, there is no pronator drift and the strength is normal in arms and legs distally and proximally. Deep tendon reflexes are symmetric 1+ to 2 all over and plantars downgoing bilaterally. Sensory to touch produce tingling on the left side. There is no neglect on double simultaneous stimulation. Cerebellar function showed slight tremulousness for [id number] testing but no ataxia bilaterally. No dysdiadochokinesia. No ataxia for [id number] testing on either side. Tone and bulk of muscles normal. Gait deferred.. On general examination, there is no carotid bruit or murmur, S1-S2 audible. Francesca st is clear on consultation. Abdomen is soft nontender. No organomegaly, bowel sounds present. Peripheral pulses are present. No edema. Results - Laboratory Findings CBC and BMP: 06/24/22 09:27 06/24/22 09:27 Abnormal Lab Findings: Abnormal Labs 06/24/22 06/24/22 09:25 09:27 Sodium 136 L BUN 23 H Glucose 154 H POC Glucose (mg/dL) 160 H Calcium 8.3 L Creatine Kinase 24 L Total Protein 5.8 L Albumin 3.1 L Assessment and Plan Assessment: * Probable acute stroke, presenting with numbness of left side of the body. Possible lacunar stroke, right thalamic region. * Diabetes * History of cerebral aneurysm, status post clipping 12/08/2016. Plan: * Patient needs stroke workup. * Patient cannot have MRI of the brain because of metallic clips * 2-D echo rule out embolic source. * CTA head revealed possible short segment stent proximal M1 segment right MCA were there may be focal moderate stenosis. On the left, aneurysm clip at the carotid terminus. There is segmental moderate atherosclerotic narrowing involving the distal left MCA as well as the proximal to mid M1 segment left MCA. * Hemoglobin A1c, fasting lipid panel * Patient was on aspirin 81 mg daily prior to arrival, compliant. We will start Plavix 75 mg daily. Continue DAP for 21 days, then may consider dropping aspirin and continue Plavix. * Permissive hypertension for 24-48 hours * Telemetric monitoring rule out arrhythmia. * Dr. Hernandez will resume neurology service in the morning. Thank you for the consult.
[2022-06-25 06:19] LABS: Glucose,Whole Blood 171 mg/dL (70-110)
[2022-06-25] MEDS: INSULIN DETEMIR (LEVEMIR) 100 UNIT/ML SYR SQ SCH ×2 (07:49→08:16)
[2022-06-25] MEDS: INSULIN ASPART (NovoLOG) 100 UNIT/ML VIAL SQ SCH ×7 (07:50→20:39)
[2022-06-25] MEDS: PANTOPRAZOLE 40 MG TABLET PO SCH (08:05)
[2022-06-25] MEDS: HEPARIN SODIUM,PORCINE/PF 5,000 UNIT/0.5 ML SYRINGE SQ SCH ×2 (08:06→20:39)
[2022-06-25] MEDS: CALCIUM CARBONATE 500 MG CHEWABLE PO SCH ×2 (08:06→20:38)
[2022-06-25] MEDS: GLIMEPIRIDE 2 MG TAB PO SCH ×2 (08:06→20:38)
[2022-06-25] MEDS: ASPIRIN 325 MG TAB PO SCH (08:06)
[2022-06-25] MEDS: METOPROLOL TARTRATE 25 MG TAB PO SCH ×3 (08:06→20:38)
[2022-06-25] MEDS: CLOPIDOGREL 75 MG TAB PO SCH (08:06)
[2022-06-25] MEDS: lisinopriL 5 MG TAB PO SCH (08:06)
[2022-06-25 08:52] LABS: Basophils % (A) 1 %; Eosinophils # (A) 0.5 k/uL (0-0.7); Eosinophils % (A) 8 %; HCT 38.3 % (34.0-46.0); HGB 12.4 gm/dL (11.4-16.0); Lymphocytes # (A) 1.3 k/uL (1.0-4.8); Lymphocytes % (A) 19 %; MCH 30.6 pg (25.0-35.0); MCHC 32.4 g/dL (31.0-37.0); MCV 94.5 fL (80.0-100.0); Monocytes # (A) 0.6 k/uL (0-1.0); Monocytes % (A) 9 %; Neutrophils # (A) 4.1 k/uL (1.3-7.7); Neutrophils % (A) 61 %; Platelet Count 180 k/uL (150-450); RBC 4.05 m/uL (3.80-5.40); WBC 6.8 k/uL (3.8-10.6)
[2022-06-25 09:03] LABS: African American GFR (CKD) 61 (>60 ml/min/1.73 sqM); Anion Gap 7 mmol/L; Blood Urea Nitrogen 21 mg/dL (7-17); Calcium 8.4 mg/dL (8.4-10.2); Carbon Dioxide 27 mmol/L (22-30); Chloride 104 mmol/L (98-107); Glucose 248 mg/dL (74-99); Non-African American GFR(CKD) 53 (>60 ml/min/1.73 sqM); Potassium 4.4 mmol/L (3.5-5.1); Sodium 138 mmol/L (137-145)
--- NOTE | 2022-06-25 10:19 | CT ---
EXAMINATION TYPE: CT brain wo con CT DLP: 1113.8 mGycm, Automated exposure control for dose reduction was used. DATE OF EXAM: 06/25/2022 10:08 AM COMPARISON: 06/24/2022. CLINICAL INDICATION:Female, 71 years old with history of right lacunar infarct, Right Lacunar Infarct TECHNIQUE: Brain: Axial CT images of the brain were obtained with coronal and sagittal reformats created and rev iewed. Contrast used: None. Oral contrast used: None. FINDINGS: Brain: Extra-axial spaces: No abnormal extra-axial fluid collections. Ventricular system: Within normal limits Cerebral parenchyma: No acute intraparenchymal hemorrhage or mass effect. The benavides-white junction is well differentiated. Scattered hypoattenuating areas are seen within the white matter. Cerebellum: Unremarkable. Mass effect: No evidence of midline shift. Intracranial vasculature: Prominent metal artifact relating to a couple aneurysm clips, one in the re gion of the distal M1 segment right MCA and one in the region of the left carotid terminus. Soft tissues: Normal. Calvarium/osseous structures: No depressed skull fracture. Paranasal sinuses and mastoid air cells: Mild scattered paranasal sinus disease. Visualized orbits: Orbital contents are intact. IMPRESSION: No acute intracranial process. No change from prior. No evidence for right lacunar infarct. The paren chyma appears similar to prior.
[2022-06-25 11:51] LABS: Glucose,Whole Blood 339 mg/dL (70-110)
--- NOTE | 2022-06-25 12:34 | P.PN ---
Subjective Progress Note Date: 06/25/22 The patient is a 71-year-old female who is seen in neurologic follow-up on June 25, 2022, via teleneurology. The patient's chart has been reviewed. The patient tells me that she came into the hospital because of tingling in the left side of her face, arm, leg. She denies difficulty with speech and swallowing. She does not noticed any loss of strength. CT scan of the brain performed in the emergency department was negative for acute hemorrhage and infarct. The patient has a history of bilateral cerebral aneurysm clipping. Objective - Vital Signs Vital signs: Vital Signs Temp 97.9 F 06/25/22 11:45 Pulse 78 06/25/22 11:45 Resp 16 06/25/22 11:45 BP 117/71 06/25/22 11:45 Pulse Ox 91 L 06/25/22 11:45 FiO2 21 06/24/22 21:27 Intake & Output 06/24/22 06/25/22 06/25/22 18:59 06:59 18:59 Intake Total 480 Balance 480 Weight 72.575 kg Intake: Oral 480 Other: Voiding Method Toilet # Voids 1 1 - Exam Gen.: The patient is reclining in the bed. She is well-nourished, well- developed and in no acute distress HEENT: Head is atraumatic, normocephalic. Fundus not visualized. There is no scleral icterus. Mucous membranes are moist Neurological examination Mental status: The patient is awake, alert and oriented 3. Her speech is clear. There is no dysarthria or aphasia. Cranial nerves: 2-12 grossly intact Motor: Bilateral upper extremity strength is 5/5. Left ankleplantar and dorsiflexors 4/5. Strength is otherwise 5/5 throughout. Deep tendon reflexes: 2+/4+ throughout. Plantar responses are flexor bilaterally. - Labs CBC & Chem 7: 06/25/22 07:50 06/25/22 07:50 Labs: Abnormal Lab Results - Last 24 Hours (Table) 06/24/22 06/24/22 06/25/22 Range/Units 09:27 20:04 06:18 BUN (7-17) mg/dL Creatinine (0.52-1.04) mg/dL Glucose (74-99) mg/dL POC Glucose (mg/dL) 245 H 171 H (70-110) mg/dL Hemoglobin A1c 7.5 H (0.0-6.0) % 06/25/22 06/25/22 Range/Units 07:50 11:49 BUN 21 H (7-17) mg/dL Creatinine 1.05 H (0.52-1.04) mg/dL Glucose 248 H (74-99) mg/dL POC Glucose (mg/dL) 339 H (70-110) mg/dL Hemoglobin A1c (0.0-6.0) % Assessment and Plan Assessment: 1. Sudden onset left-sided sensory deficit, possibly consistent with right thalamic lacunar infarct Initial head CT is negative for infarct and hemorrhage 2. History of bilateral cerebral aneurysm clipping 3. History of diabetes mellitus reportedly well controlled Plan: 1. Repeat head CT was ordered and has been done. There is no evidence of acute hemorrhage or infarct. 2. Continue to await 2-D echocardiogram 3. Continue stroke workup Time with Patient: Less than 30 (25 minutes were spent in caring for this patient today including obtaining a history, examining the patient, reviewing imaging, labs, chart documentation, placing orders and creating this note)
--- NOTE | 2022-06-25 13:19 | CA ---
Transthoracic Echo Report Name: Simran Lala Age: 71 Gender: F : 1950 Exam Date: 06/25/2022 08:16 Exam Location: [place] [facility] Ht (in): 61 Wt (lb): 160 Ordering Physician: Mansoor Eid MD Attending/Referring Phys: [employer]ophoto Tech/D[place] Lali Bishop RDCS Procedure CPT: Indications: CVA Cardiac Hx: Technical Quality: Good Contrast 1: Total Dose (mL): Contrast 2: Total Dose (mL): MEASUREMENTS (Male / Female) Normal Values 2D ECHO LV Diastolic Diameter PLAX 3.9 cm 4.2 - 5.9 / 3.9 - 5.3 cm LV Systolic Diameter PLAX 2.8 cm IVS Diastolic Thickness 1.2 cm 0.6 - 1.0 / 0.6 - 0.9 cm LVPW Diastolic Thickness 1.2 cm 0.6 - 1.0 / 0.6 - 0.9 cm LV Relative Wall Thickness 0.6 RV Internal Dim ED PLAX 2.2 cm LA Systolic Diameter LX 3.6 cm 3.0 - 4.0 / 2.7 - 3.8 cm LA Volume 50.3 cm??? 18 - 58 / 22 - 52 cm??? M-MODE Aortic Root Diameter MM 2.5 cm MV E Point Septal Separation 0.9 cm AV Cusp Separation MM 1.6 cm DOPPLER AV Peak Velocity 157.5 cm/s AV Peak Gradient 9.9 mmHg MV Area PHT 4.5 cm??? Mitral E Point Velocity 113.6 cm/s Mitral A Point Velocity 120.4 cm/s Mitral E to A Ratio 0.9 MV Deceleration Time 168.0 ms MV E' Velocity 6.6 cm/s Mitral E to MV E' Ratio 17.3 TR Peak Velocity 255.3 cm/s TR Peak Gradient 26.1 mmHg Right Ventricular Systolic Press 31.1 mmHg FINDINGS Left Ventricle Left ventricular ejection fraction is estimated at 55-60 %. Left ventricular cavity size normal. Mildly increased septal wall thickness. Mildly increased posterior wall thickness. Normal left ventricular wall motion. Right Ventricle Normal right ventricular size and function. Right ventricular systolic pressure within normal limits. Right Atrium Normal right atrial size. Anurysmal septum. Negative saline bubbles study Left Atrium Normal left atrial size. Mitral Valve Mitral valve thickened. Mild mitral regurgitation. Aortic Valve Trileaflet aortic valve. No aortic valve stenosis or regurgitation. Tricuspid Valve Structurally normal tricuspid valve. Mild tricuspid regurgitation. Pulmonic Valve Pulmonic valve not well visualized. Pericardium Normal pericardium. No pericardial effusion. Aorta Normal size aortic root and proximal ascending aorta. CONCLUSIONS 1. Normal left ventricle size and systolic function 2. Mild mitral and tricuspid regurgitation 3. Aneurysmal intra-atrial septum with negative bubble study Previewed by: Dr. Lesli Kerns MD (Electronically Signed) Final Date: 25 Jun 2022 13:18
[2022-06-25 13:39] LABS: Chol/HDL Ratio 3.26 Ratio; LDL Cholesterol,Calculated 56.7 mg/dL (0.0-131.0)
--- NOTE | 2022-06-25 16:40 | P.PN ---
Subjective This is a pleasant 71 years old female with past medical history of CVA/TIA and diabetes mellitus, brain aneurysms, and migraines Sent by her PCP Dr. Stanley for left side numbness that started 9 PM last night involving her left face left arm and left leg with no weakness direct dizziness. No slurred speech or blurred vision. Patient denies any other symptom no chest pain dyspnea. No change in urine or bowel habits. No fever. She denies smoking alcohol or illicits Vitals are stable and patient is afebrile CBC, INR are unremarkable. Troponin is negative. EKG showing normal sinus rhythm at [address] changes Chest x-ray: No acute process. Known mediastinal lymphadenopathy. Small right pleural effusion. Possible right middle lobe pneumonia or collapse CT of the [place]: Permanent aneurysm clip artifact on both sides. On the left, i n the region of the left carotid terminus. On the right in the region of the MCA bifurcation. No definite acute intracranial abnormality seen CTA of the head and neck: Widely patent vertebral and carotid arteries of the neck. Moderate right pleural effusion as well as bilateral hilar and mediasti nal lymphadenopathy measuring up to 2.1 cm apparently similar to that off 02/07/2021. CTA of the head: On the left aneurysm clip at the carotid terminus on the right hip at the M1 bifurcation. No large vessel intracranial arterial occlusion or aneurysm. 06/25/2022 Patient clinically the same, she still complaining of from numbness in her leftarm and leg. No other new complaints, no new weakness. No headache or dizziness. Patient informed about the dual antiplatelet therapy with aspirin and Plavix 3 weeks and then stop aspirin continue with the Plavix, patient verbalized understanding and acceptance. Risks including but not limited to bleeding explained for her extensively and she agrees with it as well. and family at bedside. Repeat CT of the brain is negative for acute process. Echocardiogram showing ejection fraction 55-60% with aneurysmal intra-atrial septum with negative bubble study Objective - Vital Signs Vital signs: Vital Signs Temp 97.9 F 06/25/22 08:00 Pulse 89 06/25/22 08:00 Resp 18 06/25/22 08:00 BP 120/67 06/25/22 08:00 Pulse Ox 94 L 06/25/22 08:00 FiO2 21 06/24/22 21:27 Intake & Output 06/24/22 06/25/22 06/25/22 18:59 06:59 18:59 Intake Total 240 Balance 240 Weight 72.575 kg Intake: Oral 240 Other: Voiding Method Toilet # Voids 1 1 - Exam GENERAL: The patient is alert and oriented x3, not in any acute distress. Well developed, well nourished. HEENT: Pupils are round and equally reacting to light. EOMI. No scleral icterus. No conjunctival pallor. Normocephalic, atraumatic. No pharyngeal erythema. No thyromegaly. CARDIOVASCULAR: S1 and S2 present. No murmurs, rubs, or gallops. PULMONARY: Chest is clear to auscultation, no wheezing . no crackles. ABDOMEN: Soft, nontender, nondistended, normoactive bowel sounds. No palpable organomegaly. MUSCULOSKELETAL: No joint swelling or deformity. EXTREMITIES: No cyanosis, clubbing, or pedal edema. NEUROLOGICAL: Gross neurological examination did not reveal any focal deficits. SKIN: No rashes. no petechiae. - Labs CBC & Chem 7: 06/25/22 07:50 06/25/22 07:50 Labs: Abnormal Lab Results - Last 24 Hours (Table) 06/24/22 06/24/22 06/24/22 Range/Units 09:27 09:27 20:04 Sodium 136 L (137-145) mmol/L BUN 23 H (7-17) mg/dL Creatinine (0.52-1.04) mg/dL Glucose 154 H (74-99) mg/dL POC Glucose (mg/dL) 245 H (70-110) mg/dL Hemoglobin A1c 7.5 H (0.0-6.0) % Calcium 8.3 L (8.4-10.2) mg/dL Creatine Kinase 24 L (30-135) U/L Total Protein 5.8 L (6.3-8.2) g/dL Albumin 3.1 L (3.5-5.0) g/dL 06/25/22 06/25/22 Range/Units 06:18 07:50 Sodium (137-145) mmol/L BUN 21 H (7-17) mg/dL Creatinine 1.05 H (0.52-1.04) mg/dL Glucose 248 H (74-99) mg/dL POC Glucose (mg/dL) 171 H (70-110) mg/dL Hemoglobin A1c (0.0-6.0) % Calcium (8.4-10.2) mg/dL Creatine Kinase (30-135) U/L Total Protein (6.3-8.2) g/dL Albumin (3.5-5.0) g/dL Assessment and Plan Assessment: Left side Numbness, rule out TIA vs others Diabetes mellitus Chronic Bilateral hilar and Mediastinal lymphadenopathy with right middle lobe collapse, most likely pneumonia with no symptoms, no fever and no leukocytosis History of brain aneurysm History of migraine Plan: Continue with aspirin and Plavix Neuro consult Labs and medication were reviewed.. Continue same treatment. Continue with symptomatic treatment. Resume home medication. Monitor labs and vitals. DVT and GI prophylaxis. Further recommendations as per clinical course of the patient DVT prophylaxis: Subcutaneous heparin GI Prophylaxis: Pepcid Prognosis is guarded
[2022-06-25 16:49] LABS: Glucose,Whole Blood 220 mg/dL (70-110)
[2022-06-25 20:24] LABS: Glucose,Whole Blood 177 mg/dL (70-110)
[2022-06-25] MEDS: ATORVASTATIN 80 MG TAB PO SCH (20:39)
[2022-06-26 06:15] LABS: Glucose,Whole Blood 171 mg/dL (70-110)
[2022-06-26 06:15] LABS: Calcium 8.5 mg/dL (8.4-10.2); Potassium 4.5 mmol/L (3.5-5.1)
[2022-06-26] MEDS: INSULIN ASPART (NovoLOG) 100 UNIT/ML VIAL SQ SCH ×7 (07:16→20:38)
[2022-06-26] MEDS: PANTOPRAZOLE 40 MG TABLET PO SCH (07:16)
[2022-06-26] MEDS: ASPIRIN 325 MG TAB PO SCH (08:12)
[2022-06-26] MEDS: CLOPIDOGREL 75 MG TAB PO SCH (08:12)
[2022-06-26] MEDS: GLIMEPIRIDE 2 MG TAB PO SCH ×2 (08:12→20:37)
[2022-06-26] MEDS: HEPARIN SODIUM,PORCINE/PF 5,000 UNIT/0.5 ML SYRINGE SQ SCH ×2 (08:12→20:37)
[2022-06-26] MEDS: METOPROLOL TARTRATE 25 MG TAB PO SCH ×3 (08:12→20:37)
[2022-06-26] MEDS: INSULIN DETEMIR (LEVEMIR) 100 UNIT/ML SYR SQ SCH (08:13)
[2022-06-26] MEDS: lisinopriL 5 MG TAB PO SCH (08:13)
[2022-06-26] MEDS: CALCIUM CARBONATE 500 MG CHEWABLE PO SCH ×2 (08:13→20:37)
[2022-06-26] MEDS ORDERED: DEXTROSE 5%-0.9% NACL 1,000 ML IV SCH (09:30)
[2022-06-26] MEDS: SODIUM CHLORIDE 0.9% 1,000 ML IV SCH ×2 (09:52→20:39)
[2022-06-26 11:36] LABS: Glucose,Whole Blood 332 mg/dL (70-110)
--- NOTE | 2022-06-26 12:31 | P.NPCON ---
History of Present Illness - Reason for Consult acute renal failure - History of Present Illness Patient is a 71-year-old female with previous history of CVA/TIA and brain aneurysm status post surgery. Patient has underlying history of type 2 diabetes as well. Patient was admitted from PCPs office with complaints of numbness tingling on her face as well as the left arm and leg. CT of the brain did not show any acute findings. Prominent aneurysm clip artifacts were noted. CTA did not reveal any large vessel occlusion. No previous history of kidney diseases Serum creatinine was 1.0 on admission and increased to 1.3 today. Patient received IV contrast on 06/24/2022. No history of NSAIDs Blood pressure was noted to be low with systolic at 97 mmHg on 06/25/2022. Elder inhibitors were discontinued today. Patient is maintained on IV fluids. Patient reports she has been voiding Review of Systems As per HPI Past Medical History Past Medical History: CVA/TIA, Diabetes Mellitus, Eye Disorder Additional Past Medical History / Comment(s): CLOSED HEAD INJURY 2017. BRAIN ANEURYSMS. Glaucoma. Migraines. TIA-no residual effects, heart murmer, "occ extra heart beat". SOB (UNKNOWN CAUSE, HAS BEEN TO 2 SPECIALISTS, UNABLE DETERMINE CAUSE). History of Any Multi-Drug Resistant Organisms: None Reported Past Surgical History: Hysterectomy, Tonsillectomy Additional Past Surgical History / Comment(s): brain aneurysm repair X 2. lap roscopic procedure. BILATERAL CATARACT/LENS. PLEAURAL effusion right side with thorancentesis Past Anesthesia/Blood Transfusion Reactions: No Reported Reaction Past Psychological History: No Psychological Hx Reported Smoking Status: Never smoker Past Alcohol Use History: None Reported Past Drug Use History: None Reported - Past Family History Father Family Medical History: Cancer, Deep Vein Thrombosis (DVT) Additional Family Medical History / Comment(s): prostate Mother Family Medical History: Cancer Additional Family Medical History / Comment(s): colon Brother(s) Family Medical History: Cancer Medications and Allergies Home Medications Medication Instructions Recorded Confirmed Type Enalapril Maleate 2.5 mg PO DAILY 05/16/14 06/24/22 History Aspirin 81 mg PO DAILY 12/08/16 06/24/22 History Atorvastatin Calcium [Lipitor] 10 mg PO DAILY 12/08/16 06/24/22 History Metoprolol Tartrate [Lopressor] 75 mg PO TID 04/02/18 06/24/22 History Insulin Glargine/Lixisenatide 42 units SQ DAILY 12/03/18 06/24/22 History [Soliqua 100 Unit-33 Mcg/ml Pen] Calcium Carbonate [Calcium] 600 mg PO BID 12/22/20 06/24/22 History Glimepiride [Amaryl] 2 mg PO BID 06/24/22 06/24/22 History Allergies Allergy/AdvReac Type Severity Reaction Status Date / Time No Known Allergies Allergy Verified 06/24/22 12:09 Physical Exam Vitals: Vital Signs Temp Pulse Resp BP Pulse Ox 06/26/22 12:00 97.8 F 76 16 149/77 97 06/26/22 08:12 94 L 06/26/22 08:00 98 F 81 16 106/69 94 L 06/26/22 03:44 98.2 F 78 14 109/51 95 06/25/22 23:27 98.1 F 80 16 109/52 96 06/25/22 19:50 98.0 F 80 16 127/59 94 L 06/25/22 15:56 98.1 F 83 16 120/63 94 L 06/25/22 15:23 93 L Intake and Output 06/25/22 06/26/22 06/26/22 22:59 06:59 14:59 Intake Total 358 360 Output Total 0 Balance 358 360 Intake: Oral 358 360 Output: Gastric Drainage 0 Urine 0 Stool 0 Urine/Stool Mix 0 Emesis 0 Oral Regurgitation 0 Other 0 Other: # Voids 2 1 0 # Bowel Movements 0 Awake, comfortable, alert oriented 3 Examination of the heart S1 and S2 Examination of the lungs bilateral breath sounds are heard Abdomen is soft nontender Examination of the lower extremities shows no significant edema CREATIVE DESIGNER exam shows no focal deficits. Results - Lab Results Most recent lab results Calcium 8.5 mg/dL (8.4-10.2) 06/26/22 05:30 06/25/22 07:50 06/26/22 05:30 Assessment and Plan Assessment: 1. Acute kidney injury associated with hypoperfusion, possible ischemic ATN in the setting of use of ELDER inhibitor's Gregg at patient also received IV contrast on 06/24/2022 which probably added some degree of nephrotoxicity. Check UA. Check ultrasound of the kidneys 2. Hypertension with blood pressure currently on the lower side. Zestril has been discontinued 3. That cited numbness possible TIA versus CVA. Neurology on consult 4. History of brain aneurysm status post surgery and clipping Plan: Continue IV fluids Agree with discontinuation of Zestril Check UA Check ultrasound of the kidneys Repeat labs in a.m. Thank you for the consultation. We will continue to follow the patient with you during her hospitalization
--- NOTE | 2022-06-26 15:29 | P.PN ---
Subjective Progress Note Date: 06/26/22 The patient is a 71-year-old female who is seen in neurologic follow-up on June 26, 2022, via teleneurology. Repeat CT scan of the brain is negative for acute infarct and hemorrhage. 2-D echocardiogram with bubble study is negative for shunt. There is noted to be an aneurysmal intra-atrial septum. The patient is seated in the bedside chair. Her is present in the room. She reports continuing to have occasional episodes of tingling starting On the left side her head, face, arm and leg. She says that he is tingling episodes are very brief, only lasting for seconds. The patient does report a history of neck problems which are currently under control. She says she has seen a chiropractor and changed her pillow. Prior to that, she was having neck pain. The patient is a 71-year-old female who is seen in neurologic follow-up on June 25, 2022, via teleneurology. The patient's chart has been reviewed. The patient tells me that she came into the hospital because of tingling in the left side of her face, arm, leg. She denies difficulty with speech and swallowing. She does not noticed any loss of strength. CT scan of the brain performed in the emergency department was negative for ac tab hemorrhage and infarct. The patient has a history of bilateral cerebral aneurysm clipping. Objective - Vital Signs Vital signs: Vital Signs Temp 98 F 06/26/22 08:00 Pulse 81 06/26/22 08:00 Resp 16 06/26/22 08:00 BP 106/69 06/26/22 08:00 Pulse Ox 94 L 06/26/22 08:12 FiO2 21 06/24/22 21:27 Intake & Output 06/25/22 06/26/22 06/26/22 18:59 06:59 18:59 Intake Total 1078 360 Output Total 0 Balance 1078 360 Intake: Oral 1078 360 Output: Gastric Drainage 0 Urine 0 Stool 0 Urine/Stool Mix 0 Emesis 0 Oral Regurgitation 0 Other 0 Other: # Voids 2 1 0 # Bowel Movements 0 - Exam Gen.: The patient is Seated in the bedside chair. She is well-nourished, well- developed and in no acute distress HEENT: Head is atraumatic, normocephalic. Fundus not visualized. There is no scleral icterus. Mucous membranes are moist Neurological examination Mental status: The patient is awake, alert and oriented 3. Her speech is clear. There is no dysarthria or aphasia. Cranial nerves: 2-12 grossly intact - Labs CBC & Chem 7: 06/25/22 07:50 06/26/22 05:30 Labs: Abnormal Lab Results - Last 24 Hours (Table) 06/25/22 06/25/22 06/25/22 Range/Units 07:50 11:49 16:45 BUN (7-17) mg/dL Creatinine (0.52-1.04) mg/dL Glucose (74-99) mg/dL POC Glucose (mg/dL) 339 H 220 H (70-110) mg/dL HDL Cholesterol 35.30 L (40.00-60.00) mg/dL 06/25/22 06/26/22 06/26/22 Range/Units 20:22 05:30 06:14 BUN 27 H (7-17) mg/dL Creatinine 1.31 H (0.52-1.04) mg/dL Glucose 142 H (74-99) mg/dL POC Glucose (mg/dL) 177 H 171 H (70-110) mg/dL HDL Cholesterol (40.00-60.00) mg/dL 06/26/22 Range/Units 11:35 BUN (7-17) mg/dL Creatinine (0.52-1.04) mg/dL Glucose (74-99) mg/dL POC Glucose (mg/dL) 332 H (70-110) mg/dL HDL Cholesterol (40.00-60.00) mg/dL Assessment and Plan Assessment: 1. Sudden onset left-sided sensory deficit, possibly consistent with right thalamic lacunar infarct-Repeat head CT is negative for acute infarct and hemorrhage. Possible etiology of tingling may be cervical spine related 2. History of bilateral cerebral aneurysm clipping 3. History of diabetes mellitus reportedly well controlled Plan: 1. The patient is neurologically stable for discharge-CT scan results were discussed with the patient 2. May consider MRI imaging of the cervical spine, as an outpatient, if symptoms continue to occur Time with Patient: Less than 30 (Spent 25 minutes hearing for this patient today including, obtaining a history, examining the patient, reviewing imaging, labs, chart documentation and creating this note)
--- NOTE | 2022-06-26 15:45 | US ---
EXAMINATION TYPE: US kidneys/renal and bladder DATE OF EXAM: 06/26/2022 COMPARISON: CT abdomen pelvis 05/05/2022 CLINICAL INDICATION: Female, 71 years old with history of mandie; MANDIE EXAM MEASUREMENTS: Right Kidney: 9.4 x 4.3 x 5.4 cm Left Kidney: 9.4 x 4.6 x 4.9 cm Multiple grayscale and color Doppler ultrasound images of the kidneys and urinary bladder were obtain ed. Right Kidney: No hydronephrosis or masses seen Left Kidney: No hydronephrosis or masses seen, lobulated contour Bladder: wnl Bilateral Jets seen: No There is no evidence for hydronephrosis at this point in time. No nephrolithiasis is seen. No gertrude s are identified. The urinary bladder is anechoic. IMPRESSION: No hydronephrosis or nephrolithiasis.
[2022-06-26 16:13] LABS: Glucose,Whole Blood 248 mg/dL (70-110)
--- NOTE | 2022-06-26 16:39 | P.PN ---
Subjective This is a pleasant 71 years old female with past medical history of CVA/TIA and diabetes mellitus, brain aneurysms, and migraines Sent by her PCP Dr. Stanley for left side numbness that started 9 PM last night involving her left face left arm and left leg with no weakness direct dizziness. No slurred speech or blurred vision. Patient denies any other symptom no chest pain dyspnea. No change in urine or bowel habits. No fever. She denies smoking alcohol or illicits Vitals are stable and patient is afebrile CBC, INR are unremarkable. Troponin is negative. EKG showing normal sinus rhythm at [address] changes Chest x-ray: No acute process. Known mediastinal lymphadenopathy. Small right pleural effusion. Possible right middle lobe pneumonia or collapse CT of the [place]: Permanent aneurysm clip artifact on both sides. On the left, i n the region of the left carotid terminus. On the right in the region of the MCA bifurcation. No definite acute intracranial abnormality seen CTA of the head and neck: Widely patent vertebral and carotid arteries of the neck. Moderate right pleural effusion as well as bilateral hilar and mediasti nal lymphadenopathy measuring up to 2.1 cm apparently similar to that off 02/07/2021. CTA of the head: On the left aneurysm clip at the carotid terminus on the right hip at the M1 bifurcation. No large vessel intracranial arterial occlusion or aneurysm. 06/25/2022 Patient clinically the same, she still complaining of from numbness in her leftarm and leg. No other new complaints, no new weakness. No headache or dizziness. Patient informed about the dual antiplatelet therapy with aspirin and Plavix 3 weeks and then stop aspirin continue with the Plavix, patient verbalized understanding and acceptance. Risks including but not limited to bleeding explained for her extensively and she agrees with it as well. and family at bedside. Repeat CT of the brain is negative for acute process. Echocardiogram showing ejection fraction 55-60% with aneurysmal intra-atrial septum with negative bubble study 06/26/2022 patient reports improvement in her left side numbness today. No weakness, no other neurological complaints. Vital signs stable Creatinine likely went up at 1.3. Hold lisinopril start normal saline 75 mL/h and consult nephrology Objective - Vital Signs Vital signs: Vital Signs Temp 98.2 F 06/26/22 03:44 Pulse 78 06/26/22 03:44 Resp 14 06/26/22 03:44 BP 109/51 06/26/22 03:44 Pulse Ox 94 L 06/26/22 08:12 FiO2 21 06/24/22 21:27 Intake & Output 06/25/22 06/26/22 06/26/22 18:59 06:59 18:59 Intake Total 1078 360 Output Total 0 Balance 1078 360 Intake: Oral 1078 360 Output: Gastric Drainage 0 Urine 0 Stool 0 Urine/Stool Mix 0 Emesis 0 Oral Regurgitation 0 Other 0 Other: # Voids 2 1 0 # Bowel Movements 0 - Exam GENERAL: The patient is alert and oriented x3, not in any acute distress. Well developed, well nourished. HEENT: Pupils are round and equally reacting to light. EOMI. No scleral icterus. No conjunctival pallor. Normocephalic, atraumatic. No pharyngeal erythema. No thyromegaly. CARDIOVASCULAR: S1 and S2 present. No murmurs, rubs, or gallops. PULMONARY: Chest is clear to auscultation, no wheezing . no crackles. ABDOMEN: Soft, nontender, nondistended, normoactive bowel sounds. No palpable organomegaly. MUSCULOSKELETAL: No joint swelling or deformity. EXTREMITIES: No cyanosis, clubbing, or pedal edema. NEUROLOGICAL: Gross neurological examination did not reveal any focal deficits. SKIN: No rashes. no petechiae. - Labs CBC & Chem 7: 06/25/22 07:50 06/26/22 05:30 Labs: Abnormal Lab Results - Last 24 Hours (Table) 06/25/22 06/25/22 06/25/22 Range/Units 07:50 11:49 16:45 BUN 21 H (7-17) mg/dL Creatinine 1.05 H (0.52-1.04) mg/dL Glucose 248 H (74-99) mg/dL POC Glucose (mg/dL) 339 H 220 H (70-110) mg/dL HDL Cholesterol 35.30 L (40.00-60.00) mg/dL 06/25/22 06/26/22 06/26/22 Range/Units 20:22 05:30 06:14 BUN 27 H (7-17) mg/dL Creatinine 1.31 H (0.52-1.04) mg/dL Glucose 142 H (74-99) mg/dL POC Glucose (mg/dL) 177 H 171 H (70-110) mg/dL HDL Cholesterol (40.00-60.00) mg/dL Assessment and Plan Assessment: Acute kidney injury Left side Numbness, rule out TIA vs others, Improving Diabetes mellitus Chronic Bilateral hilar and Mediastinal lymphadenopathy with right middle lobe collapse, most likely pneumonia with no symptoms, no fever and no leukocytosis History of brain aneurysm History of migraine Plan: Continue with aspirin and Plavix Neuro consult Nephrology consult, continue with IV fluid, hold lisinopril. Monitor creatinine Labs and medication were reviewed.. Continue same treatment. Continue with symptomatic treatment. Resume home medication. Monitor labs and vitals. DVT and GI prophylaxis. Further recommendations as per clinical course of the p atient DVT prophylaxis: Subcutaneous heparin GI Prophylaxis: Pepcid Prognosis is guarded
[2022-06-26 20:15] LABS: Glucose,Whole Blood 251 mg/dL (70-110)
[2022-06-26] MEDS: ATORVASTATIN 80 MG TAB PO SCH (20:37)
[2022-06-26 20:38] LABS: Appearance,Urine Cloudy (Clear); Bacteria,Urine Occasional /hpf; Bilirubin,Urine Negative (Negative); Blood,Urine Negative (Negative); Color,Urine Yellow; Glucose,Urine (UA) 3+ (Negative); Ketones,Urine Negative (Negative); Leukocyte Esterase,Urine Small (Negative); Mucus,Urine Rare /hpf; Nitrite,Urine Negative (Negative); PH, Urine 5.5 (5.0-8.0); Protein,Urine Negative (Negative); RBC,Urine 1 /hpf (0-5); Specific Gravity,Urine 1.018 (1.001-1.035); Squamous Epithelial Cell,Urine 5 /hpf (0-4); Urobilinogen,Urine <2.0 mg/dL (<2.0); WBC,Urine 11 /hpf (0-5)
[2022-06-27 06:06] LABS: Glucose,Whole Blood 115 mg/dL (70-110)
[2022-06-27] MEDS: INSULIN ASPART (NovoLOG) 100 UNIT/ML VIAL SQ SCH ×4 (06:11→11:56)
[2022-06-27] MEDS: PANTOPRAZOLE 40 MG TABLET PO SCH (07:03)
[2022-06-27 08:02] LABS: Basophils % (A) 1 %; Eosinophils # (A) 0.6 k/uL (0-0.7); Eosinophils % (A) 7 %; HCT 39.4 % (34.0-46.0); HGB 12.7 gm/dL (11.4-16.0); Lymphocytes # (A) 1.4 k/uL (1.0-4.8); Lymphocytes % (A) 17 %; MCH 29.6 pg (25.0-35.0); MCHC 32.3 g/dL (31.0-37.0); MCV 91.6 fL (80.0-100.0); Mean Platelet Volume 8.3; Monocytes # (A) 0.5 k/uL (0-1.0); Monocytes % (A) 6 %; Neutrophils # (A) 5.4 k/uL (1.3-7.7); Neutrophils % (A) 66 %; Platelet Count 171 k/uL (150-450); RBC 4.31 m/uL (3.80-5.40); RDW 13.6 % (11.5-15.5); WBC 8.2 k/uL (3.8-10.6)
[2022-06-27 08:07] VITALS: TEMP 98.1
[2022-06-27] MEDS: METOPROLOL TARTRATE 25 MG TAB PO SCH (08:07)
[2022-06-27] MEDS: CLOPIDOGREL 75 MG TAB PO SCH (08:07)
[2022-06-27] MEDS: CALCIUM CARBONATE 500 MG CHEWABLE PO SCH (08:07)
[2022-06-27] MEDS: ASPIRIN 325 MG TAB PO SCH (08:07)
[2022-06-27] MEDS: GLIMEPIRIDE 2 MG TAB PO SCH (08:07)
[2022-06-27] MEDS: INSULIN DETEMIR (LEVEMIR) 100 UNIT/ML SYR SQ SCH (08:07)
[2022-06-27] MEDS: HEPARIN SODIUM,PORCINE/PF 5,000 UNIT/0.5 ML SYRINGE SQ SCH (08:08)
[2022-06-27 08:27] LABS: Calcium 8.1 mg/dL (8.4-10.2); Potassium 4.5 mmol/L (3.5-5.1)
--- NOTE | 2022-06-27 11:07 | P.PN ---
Subjective Patient is seen for follow-up for acute kidney injury prerenal and possible component of contrast-induced ATN. Renal function has improved with creatinine down to 1.1. No significant complaints today Patient wants to go home. She has been tolerating oral intake well Eduardo at Objective - Vital Signs Vital signs: Vital Signs Temp 98.1 F 06/27/22 08:05 Pulse 77 06/27/22 08:05 Resp 16 06/27/22 08:05 BP 123/71 06/27/22 08:05 Pulse Ox 92 L 06/27/22 08:05 FiO2 21 06/24/22 21:27 Intake & Output 06/26/22 06/27/22 06/27/22 18:59 06:59 18:59 Intake Total 600 Output Total 400 Balance 200 Intake: Oral 600 Output: Gastric Drainage 0 Urine 400 Stool 0 Urine/Stool Mix 0 Emesis 0 Oral Regurgitation 0 Other 0 Other: # Voids 0 2 # Bowel Movements 0 - Exam Awake comfortable, alert oriented 3 Examination of the heart S1 and S2 Examination lungs bilateral breath sounds are heard Abdomen is soft nontender Examination of lower extremities shows no evidence of edema [facility] exam grossly intact - Labs CBC & Chem 7: 06/27/22 07:26 06/27/22 07:26 Labs: Abnormal Lab Results - Last 24 Hours (Table) 06/26/22 06/26/22 06/26/22 Range/Units 11:35 13:12 16:11 BUN (7-17) mg/dL Creatinine (0.52-1.04) mg/dL Glucose (74-99) mg/dL POC Glucose (mg/dL) 332 H 248 H (70-110) mg/dL Calcium (8.4-10.2) mg/dL Urine Appearance Cloudy H (Clear) Urine Glucose (UA) 3+ H (Negative) Ur Leukocyte Esterase Small H (Negative) Urine WBC 11 H (0-5) /hpf Ur Squamous Epith Cells 5 H (0-4) /hpf Urine Bacteria Occasional H (None) /hpf Urine Mucus Rare H (None) /hpf 06/26/22 06/27/22 06/27/22 Range/Units 20:14 06:04 07:26 BUN 23 H (7-17) mg/dL Creatinine 1.15 H (0.52-1.04) mg/dL Glucose 205 H (74-99) mg/dL POC Glucose (mg/dL) 251 H 115 H (70-110) mg/dL Calcium 8.1 L (8.4-10.2) mg/dL Urine Appearance (Clear) Urine Glucose (UA) (Negative) Ur Leukocyte Esterase (Negative) Urine WBC (0-5) /hpf Ur Squamous Epith Cells (0-4) /hpf Urine Bacteria (None) /hpf Urine Mucus (None) /hpf Assessment and Plan Assessment: 1. Acute kidney injury associated with hypoperfusion, possible ischemic ATN in the setting of use of SANJEEV inhibitor's Eduardo at patient also received IV contrast on 06/24/2022 which probably added some degree of nephrotoxicity. Check UA. Ultrasound is unremarkable. UA is benign. 2. Hypertension with blood pressure currently on the lower side. Zestril has been discontinued 3. That cited numbness possible TIA versus CVA. Neurology on consult 4. History of brain aneurysm status post surgery and clipping Plan: Continue off of IV fluids Continue off of SANJEEV inhibitor's as blood pressure remains on the lower side. Can resume as outpatient depending on blood pressure. Goal systolic blood pressure 120-1 30 mmHg
[2022-06-27 11:34] LABS: Glucose,Whole Blood 351 mg/dL (70-110)
[2022-06-27 11:55] VITALS: BP 146/79; PULSE 81; RESP 18
--- NOTE | 2022-06-27 13:10 | P.DS ---
Providers Date of admission: 06/24/22 11:34 Expected date of discharge: 06/27/22 Attending physician: Julien Flowers MD Consults: 06/24/22 11:33 Consult Physician Routine Consulting Provider: Mansoor Eid Consult Reason/Comments: CVA Do you want consulting provider notified?: Yes 06/26/22 09:32 Consult Physician Routine Consulting Provider: Irma Cui Consult Reason/Comments: miriam Do you want consulting provider notified?: Yes Primary care physician: Donald Stanley Hospital Course: Discharge diagnoses; Acute kidney injury Left side Numbness, rule out TIA vs others, Improving Diabetes mellitus Chronic Bilateral hilar and Mediastinal lymphadenopathy with right middle lobe collapse, most likely pneumonia with no symptoms, no fever and no leukocytosis History of brain aneurysm History of migraine Hospital course; This is a pleasant 71 years old female with past medical history of CVA/TIA and diabetes mellitus, brain aneurysms, and migraines Sent by her PCP Dr. Stanley for left side numbness that started 9 PM last night involving her left face left arm and left leg with no weakness direct dizziness. No slurred speech or blurred vision. Patient denies any other symptom no chest pain dyspnea. No change in urine or bowel habits. No fever. She denies smoking alcohol or illicits Vitals are stable and patient is afebrile CBC, INR are unremarkable. Troponin is negative. EKG showing normal sinus rhythm at [address] T changes Chest x-ray: No acute process. Known mediastinal lymphadenopathy. Small right pleural effusion. Possible right middle lobe pneumonia or collapse CT of the [place]: Permanent aneurysm clip artifact on both sides. On the left, in the region of the left carotid terminus. On the right in the region of the MCA bifurcation. No definite acute intracranial abnormality seen CTA of the head and neck: Widely patent vertebral and carotid arteries of the neck. Moderate right pleural effusion as well as bilateral hilar and mediastin al lymphadenopathy measuring up to 2.1 cm apparently similar to that off 02/07/2021. CTA of the head: On the left aneurysm clip at the carotid terminus on the right hip at the M1 bifurcation. No large vessel intracranial arterial occlusion or aneurysm. 06/25/2022 Patient clinically the same, she still complaining of from numbness in her leftarm and leg. No other new complaints, no new weakness. No headache or dizziness. Patient informed about the dual antiplatelet therapy with aspirin and Plavix 3 weeks and then stop aspirin continue with the Plavix, patient verbalized understanding and acceptance. Risks including but not limited to bleeding explained for her extensively and she agrees with it as well. and family at bedside. Repeat CT of the brain is negative for acute process. Echocardiogram showing ejection fraction 55-60% with aneurysmal intra-atrial septum with negative bubble study 06/26/2022 patient reports improvement in her left side numbness today. No weakness, no other neurological complaints. Vital signs stable Creatinine likely went up at 1.3. Hold lisinopril start normal saline 75 mL/h and consult nephrology 06/27. Patient seen and examined. Dr. Gamble took over care.. Nephrology cleared the patient for discharge, recommend holding lisinopril at discharge. Neurology recommended discharging patient on aspirin and Plavix for 21 days followed by Plavix alone. PHYSICAL EXAMINATION: GENERAL: The patient is alert and oriented x3, not in any acute distress. Well developed, well nourished. HEENT: Pupils are round and equally reacting to light. EOMI. No scleral icterus. No conjunctival pallor. Normocephalic, atraumatic. No pharyngeal erythema. No thyromegaly. CARDIOVASCULAR: S1 and S2 present. No murmurs, rubs, or gallops. PULMONARY: Chest is clear to auscultation, no wheezing or crackles. ABDOMEN: Soft, nontender, nondistended, normoactive bowel sounds. No palpable organomegaly. MUSCULOSKELETAL: No joint swelling or deformity. EXTREMITIES: No cyanosis, clubbing, or pedal edema. NEUROLOGICAL: Gross neurological examination did not reveal any focal deficits. SKIN: No rashes. Patient Condition at Discharge: Good Plan - Discharge Summary Discharge Rx Participant: Yes New Discharge Prescriptions: New Clopidogrel [Plavix] 75 mg PO DAILY #30 tab Continue Atorvastatin Calcium [Lipitor] 10 mg PO DAILY Aspirin 81 mg PO DAILY Metoprolol Tartrate [Lopressor] 75 mg PO TID Insulin Glargine/Lixisenatide [Soliqua 100 Unit-33 Mcg/ml Pen] 42 units SQ DAILY Calcium Carbonate [Calcium] 600 mg PO BID Glimepiride [Amaryl] 2 mg PO BID Discontinued Enalapril Maleate 2.5 mg PO DAILY Discharge Medication List Aspirin 81 mg PO DAILY 12/08/16 [History] Atorvastatin Calcium [Lipitor] 10 mg PO DAILY 12/08/16 [History] Metoprolol Tartrate [Lopressor] 75 mg PO TID 04/02/18 [History] Insulin Glargine/Lixisenatide [Soliqua 100 Unit-33 Mcg/ml Pen] 42 units SQ DAILY 12/03/18 [History] Calcium Carbonate [Calcium] 600 mg PO BID 12/22/20 [History] Glimepiride [Amaryl] 2 mg PO BID 06/24/22 [History] Clopidogrel [Plavix] 75 mg PO DAILY #30 tab 06/27/22 [Rx] Follow up Appointment(s)/Referral(s): Donald Stanley MD [Primary Care Provider] - 1-2 days Patient Instructions/Handouts: Ischemic Stroke (GEN) Discharge Disposition: HOME SELF-CARE
--- NOTE | 2022-06-30 09:33 | CDI ---
Documentation Clarification Form Date: 06/30/2022 8:56:18 AM From: Mila Rodriguez RN CCDS Phone: [phone] Admit Date: 06/24/2022 11:34:00 AM Patient Name: Simran Lala Visit Number: [id number] Discharge Date: 06/27/2022 2:56:00 PM ATTENTION: The Clinical Documentation Specialists (CDI) and [facility] Coding Staff appreciate your assistance in clarifying documentation. Please respond to the clarification below the line at the bottom and electronically sign. The CDI & [facility] Coding staff will review the response and follow-up if needed. Please note: Queries are made part of the Legal Health Record. If you have any questions, please contact the author of this message via ITS. Dr. Norm Gamble Pneumonia is documented in the H&P 06/24 through Discharge summary 06/27, which may lack sufficient clinical evidence/support in the medical record. Additional clarification is requested. History/Risk Factors: 72-year-old female presented with left side numbness involving her left face left arm and left leg. Medical History: CVA, DM, Migraines, Glaucoma and Closed head injury. 06/24, H&P. Clinical Indicators: 06/24, VSS: B/P 146/64, HR 76, Temp 97.9 F Oral, RR 20, SpO2 room air 06/24, Labs: Wbc 7.7; Neutrophils 4.9; 06/25: Procalcitonin 0.05 06/24, CXR: Known mediastinal lymphadenopathy. New small right pleural effusion. 06/27, Discharge summary: Chronic Bilateral hilar and Mediastinal lymphadenopathy with right middle lobe collapse, most likely pneumonia with no symptoms, no fever and no leukocytosis 06/24, H&P: Pulmonary assessment: Chest is clear to auscultation. Treatment: Chest xray 06/24 and Lab monitoring 06/24 06/25 Please clarify if Pneumonia is a valid diagnosis? [ ] Yes, Pneumonia is present as evidence by (additional clinical support): [ x ] No, Pneumonia is ruled out [ ] Other (please specify diagnosis) [ ] Unable to determine (Template Last Revised: April 2020) MTDD
== END 2022-06-27 14:56 | disposition home or self-care (01) | DRG 69 ==
LOC: EC 08:51 → 3SCARD 11:34
PROVIDERS: ADMIT Internal Medicine; ATTEND Internal Medicine
DX: G45.9 Transient cerebral ischemic attack, unspecified (principal); N17.0 Acute kidney failure with tubular necrosis; J90 Pleural effusion, not elsewhere classified; J98.19 Other pulmonary collapse; N14.11 Contrast-induced nephropathy; G43.009 Migraine without aura, not intractable, without status migrainosus; I10 Essential (primary) hypertension; R29.701 NIHSS score 1; Z79.4 Long term (current) use of insulin; Z79.82 Long term (current) use of aspirin; Z79.84 Long term (current) use of oral hypoglycemic drugs; Z79.899 Other long term (current) drug therapy; Z86.73 Personal history of transient ischemic attack (TIA), and cerebral infarction without residual deficits; Z86.79 Personal history of other diseases of the circulatory system; T46.5X5A Adverse effect of other antihypertensive drugs, initial encounter; R59.0 Localized enlarged lymph nodes; E11.9 Type 2 diabetes mellitus without complications
CPT/HCPCS: 36415; 70450; 70496; 70498; 71046; 76770; 80048; 80053; 80061; 81001; 82550; 83036; 84145; 84484; 85025; 85610; 85730; 93005; 93306; 94760; 96360; 99285; 99291

== ENCOUNTER → 2022-07-05 | Outpatient (CLI) | payer MEDICARE, OTHER ==
[2022-07-05 16:26] LABS: ALT 26 U/L (8-44); AST 25 U/L (13-35); Albumin/Globulin Ratio 1.57 (1.60-3.17); Alkaline Phosphatase 76 U/L (41-126); BUN/Creat Ratio 18.47 Ratio (12.00-20.00); Blood Urea Nitrogen 24.2 mg/dL (9.0-27.0); Calcium 10.1 mg/dL (8.7-10.3); Carbon Dioxide 32.4 mmol/L (20.0-27.5); Chloride 100 mmol/L (96-109); Chol/HDL Ratio 3.11 Ratio; Globulin 2.6 g/dL (1.6-3.3); Glucose 199 mg/dL (70-110); LDL Cholesterol,Calculated 71.9 mg/dL (0.0-131.0); Non-African American GFR(CKD) 40.6 (60.0-200.0); Sodium 140 mmol/L (135-145); Total Protein 6.6 g/dL (6.2-8.2)
[2022-07-05 16:33] LABS: Basophils # (A) 0.06 X 10*3/uL (0.00-0.10); Basophils % (A) 0.8 %; Eosinophils # (A) 0.59 X 10*3/uL (0.04-0.35); HCT 41.9 % (37.2-46.3); HGB 13.6 g/dL (12.0-15.0); Immature Grans, Automated 0.4 %; Lymphocytes # (A) 1.48 X 10*3/uL (0.90-5.00); Lymphocytes % (A) 20.1 %; MCH 30.5 pg (27.0-32.0); MCHC 32.5 g/dL (32.0-37.0); MCV 93.9 fL (80.0-97.0); Mean Platelet Volume 10.5 fL (9.5-12.2); Monocytes # (A) 0.78 X 10*3/uL (0.20-1.00); Monocytes % (A) 10.6 %; NRBC Per 100 WBC 0 /100 WBCS (0.0-0.0); Neutrophils # (A) 4.41 X 10*3/uL (1.80-7.70); Neutrophils % (A) 60.1 %; Platelet Count 212 X 10*3/uL (140-440); RBC 4.46 X 10*6/uL (4.10-5.20); RDW 13.2 % (11.5-14.5); WBC 7.35 X 10*3/uL (4.50-10.00)
== END | disposition home or self-care (01) ==
LOC: LABWHC1 09:00
PROVIDERS: ATTEND Family Medicine
DX: E11.65 Type 2 diabetes mellitus with hyperglycemia (principal)
CPT/HCPCS: 36415; 80053; 80061; 83036; 85025

== ENCOUNTER → 2023-02-02 | Outpatient (CLI) | payer MEDICARE, OTHER ==
--- NOTE | 2023-02-02 14:39 | BD ---
EXAMINATION TYPE: Axial Bone Density DATE OF EXAM: 02/02/2023 CLINICAL HISTORY: 72 years old Female. ICD-10 CODE: Z78.0 ASYMPTOMATIC MENOPAUSAL Height: 60.2 Weight: 158 FRAX RISK QUESTIONS: History of Fracture in Adulthood: yes Secondary Osteoporosis: yes 3. Menopause before 45: yes RISK FACTORS HISTORY OF: hx of lt hand fx 3 yrs ago Postmenopausal woman: yes, at 36 yrs...total Hyperparathyroidism: no Adrenal Insufficiency: no MEDICATIONS: Additional Medications: cholesterol statin, bp meds, aspirin, calcium and vit d, diabetic meds, insul in, Additional History: cholesterol, diabetic, hypertension, heart and clotting concerns, EXAM MEASUREMENTS: Bone mineral densitometry was performed using the [employer] System. Bone mineral density as measured about the Lumbar spine is: ----- L1-L4(G/cm2): 1.225 T Score Values are as follows: ----- L1: 0.1 ----- L2: -1.1 ----- L3: 0.9 ----- L4: 1.1 ----- L1-L4: 0.4 Z Score Values are as follows: ----- L1: 1.6 ----- L2: 0.4 ----- L3: 2.4 ----- L4: 2.6 ----- L1-L4: 1.9 Bone mineral density has: Increased 5.3% since study of: 03.31.2020 Bone mineral density about the R hip (g/cm2): 0.921 Bone mineral density about the L hip (g/cm2): 0.971 T Score values are as follows: -----R Neck: -1.3 -----L Neck: 0.9 -----R Total: -0.7 -----L Total: -0.3 Z Score values are as follows: -----R Neck: 0.4 -----L Neck: 2.6 -----R Total: 0.8 -----L Total: 1.2 Bone mineral density has: Increased 4.8% since study of: 03.31.2020 FRAX%s: The graph provided illustrates a 15.5% chance for a major osteoporotic fx and a 2.3% chance f or the hips probability for fx in 10 years time. IMPRESSION: Normal (Values between +1 and -1 indicate normal bone mass). Consider repeating this study in 5 year s or sooner if there is some new clinical indication. NOTE: T-SCORE=SD OF THE YOUNG ADULT MEAN.
--- NOTE | 2023-02-03 18:51 | MM ---
Reason for Exam: Screening (asymptomatic). Last mammogram was performed 1 year(s) and 9 month(s) ago. Patient History: Menarche at age 11. First Full-Term at age 21. Left ovary removed at age 36. Right ovary removed at age 36. Hysterectomy at age 36. Postmenopausal. Risk Values: Breanna 5 year model risk: 1.6%. NCI Lifetime model risk: 3.9%. Prior Study Comparison: 09/17/2018 Right Diagnostic Mammogram, [facility]. 03/31/2020 Bilateral Screening Mammogram, [facility]. 05/13/2021 Bilateral Screening Mammogram, [facility]. Tissue Density: There are scattered fibroglandular densities. Findings: Analyzed By CAD. There is no suspicious group of microcalcifications or new suspicious mass in either breast. Overall Assessment: Negative, BI-RAD 1 Management: Screening Mammogram of both breasts in 1 year. . Patient should continue monthly self-breast exams. A clinical breast exam by your physician is recommended on an annual basis. This exam should not preclude additional follow-up of suspicious palpable abnormalities. Note on Breanna scores and lifetime risk: 1. A Breanna score greater than 3% is considered moderate risk. If this is the case, consider specialist referral to assess eligibility for a risk reducing agent. 2. If overall lifetime risk for the development of breast cancer is 20% or higher, the patient may qualify for future screening with alternating mammogram and breast MRI. Electronically signed and approved by: Tasha Lopez M.D. Radiologist
== END | disposition home or self-care (01) ==
LOC: RADBDWWP 12:58
PROVIDERS: ATTEND Family Medicine
DX: Z12.31 Encounter for screening mammogram for malignant neoplasm of breast (principal); M85.89 Other specified disorders of bone density and structure, multiple sites; Z78.0 Asymptomatic menopausal state
CPT/HCPCS: 77063; 77067; 77080

== ENCOUNTER 2023-03-07 07:06 | Day surgery (SDC) | payer MEDICARE, OTHER ==
[~2023-03-07 07:06] MED LIST changes: -HEPARIN SODIUM,PORCINE/PF 5,000 UNIT/0.5 ML SYRINGE SQ PRN; -HYDROmorphone 0.5 MG/0.5 ML SYRINGE IVP PRN; -LIDOCAINE 1% (10MG/ML) FOR IV START INTRADERMA PRN; -ONDANSETRON 4 MG/2 ML VIAL IVP ONE
[2023-03-07 08:02] LABS: Glucose,Whole Blood 179 mg/dL (70-110)
[2023-03-07] MEDS ORDERED: PROPOFOL 10 MG/ML 20 ML VIAL IV ONE (08:03)
[2023-03-07 08:16] VITALS: RESP 16; TEMP 97.8
--- NOTE | 2023-03-07 08:35 | P.PCN ---
Date of Procedure: 03/07/23 Procedure(s) Performed: BRIEF HISTORY: Patient is a 72-year-old pleasant female scheduled for an elective colonoscopy as a part of screening for colon cancer and family history of colon cancer. Her mother was used with colon cancer at age 70. PROCEDURE PERFORMED: Colonoscopy. PREOPERATIVE DIAGNOSIS: Screening for colon cancer and family history of colon cancer. IV sedation per Anesthesia. PROCEDURE: After informed consent was obtained, the patient, was brought into the endoscopy unit. IV sedation was administered by Anesthesia under continuous monitoring. Digital rectal examination was normal. Initially the Olympus CF-160 flexible video colonoscope was then inserted in the rectum, gradually advanced into the splenic flexure and the scope couldn't be advanced any further. The scope was removed and a pediatric colonoscopy was then introduced into the rectum and gradually advanced into the hepatic flexure. Despite multiple attempts I was not able to advance the scope into the cecum. Abdominal pressure was applied and patient was placed in supine position and despite this I could n ot safely advance the scope any further. At this time I decided to terminate the procedure and gradually withdraw the scope. Careful examination was performed as the scope was gradually being withdrawn. mucosa of the hepatic flexure,, transverse colon, descending colon, sigmoid colon, and rectum appeared normal. scattered sigmoid diverticulosis seen. Retroflexion was performed in the rectum and no lesions were seen. The patient tolerated the procedure well. IMPRESSION: Normal-appearing colon from rectum to hepatic flexure and scope could not be advanced beyond this area because of excessive looping in the sigmoid colon. Scattered sigmoid diverticulosis. RECOMMENDATIONS: Findings of this examination were discussed with the patient as well as a family. She will be scheduled for a barium enema today to evaluate the rest of the colon and recommend a repeat colonoscopy every 5 years because of the family history of colon cancer
[2023-03-07 09:06] VITALS: BP 110/71; PULSE 72
== END 2023-03-07 09:14 | disposition home or self-care (01) ==
LOC: ORWHC2ENDO 07:06
PROVIDERS: ATTEND Internal Medicine Gastroenterology
DX: Z12.11 Encounter for screening for malignant neoplasm of colon (principal); K57.30 Diverticulosis of large intestine without perforation or abscess without bleeding; Z80.0 Family history of malignant neoplasm of digestive organs
CPT/HCPCS: 45378; J2704

== ENCOUNTER → 2023-03-08 | Outpatient (CLI) | payer MEDICARE, OTHER ==
--- NOTE | 2023-03-07 13:13 | XR ---
EXAMINATION TYPE: XR abdomen 1V DATE OF EXAM: 03/07/2023 COMPARISON: NONE HISTORY: Failed colonoscopy TECHNIQUE: One view abdominal series FINDINGS: The osseous structures are intact. The bowel gas pattern is nonspecific. Extensive retained air thro ughout the bowel compatible with recent colonoscopy. Vascular calcifications are noted. Calcification s in the right upper quadrant could be related to gallbladder or kidneys. Arthropathy of the hips and degenerative change of the spine. Right basilar atelectasis. IMPRESSION: 1. Nonspecific abdomen. Extensive retained air throughout the colon post colonoscopy. 2. Right basilar atelectasis favored over pneumonia. 3. Possible renal calculus or gallstone.
--- NOTE | 2023-03-08 11:12 | FL ---
EXAMINATION TYPE: FL barium enema w air contrast DATE OF EXAM: 03/08/2023 COMPARISON: NONE HISTORY: Incomplete colonoscopy TECHNIQUE: A double contrast barium enema study is performed. A total of 2 minutes and 36 seconds o f fluoroscopic time was utilized during procedure and 21 images obtained. Total dose area product (D AP) in uGy*m?, mGy*cm? (or similar): No DAP to report. . FINDINGS: Asset Management Lead view of the abdomen shows overall non-obstructive bowel gas pattern. Diffuse osteope noemí, degenerative changes of the spine and bilateral hip arthropathy. No evidence of any mass or polyp, obstructing or constricting lesion throughout the colon. Mild sigmo id diverticulosis. Appendix was filled and appeared normal. The terminal ileum was refluxed and appe ars within normal limits. IMPRESSION: 1. Mild sigmoid diverticulosis.
== END | disposition home or self-care (01) ==
LOC: RADFLMAIN 07:48
PROVIDERS: ATTEND Internal Medicine Gastroenterology
DX: K57.30 Diverticulosis of large intestine without perforation or abscess without bleeding (principal); J98.11 Atelectasis
CPT/HCPCS: 74018; 74280

== ENCOUNTER → 2023-05-09 | Outpatient (CLI) | payer MEDICARE ==
[2023-05-09 10:53] LABS: ALT 17 U/L (4-34); AST 33 U/L (14-36); African American GFR (CKD) 40 (>60 ml/min/1.73 sqM); Albumin 3.9 g/dL (3.5-5.0); Albumin/Globulin Ratio 1.3; Alkaline Phosphatase 69 U/L (38-126); Amylase 143 U/L (30-110); Anion Gap 7 mmol/L; Blood Urea Nitrogen 34 mg/dL (7-17); Calcium 11.9 mg/dL (8.4-10.2); Carbon Dioxide 33 mmol/L (22-30); Chloride 100 mmol/L (98-107); Glucose 160 mg/dL (74-99); Lipase 738 U/L (23-300); Non-African American GFR(CKD) 35 (>60 ml/min/1.73 sqM); Potassium 4.1 mmol/L (3.5-5.1); Sodium 140 mmol/L (137-145); Total Bilirubin 0.8 mg/dL (0.2-1.3); Total Protein 6.9 g/dL (6.3-8.2)
[2023-05-09 10:54] LABS: Basophils # (A) 0.1 k/uL (0-0.2); Basophils % (A) 1 %; Eosinophils # (A) 0.7 k/uL (0-0.7); Eosinophils % (A) 8 %; HCT 47.2 % (34.0-46.0); HGB 15.6 gm/dL (11.4-16.0); Lymphocytes # (A) 1.5 k/uL (1.0-4.8); Lymphocytes % (A) 17 %; MCH 30.1 pg (25.0-35.0); MCHC 33.2 g/dL (31.0-37.0); MCV 90.6 fL (80.0-100.0); Mean Platelet Volume 8.2; Monocytes # (A) 0.6 k/uL (0-1.0); Monocytes % (A) 7 %; Neutrophils # (A) 5.9 k/uL (1.3-7.7); Neutrophils % (A) 64 %; Platelet Count 226 k/uL (150-450); RDW 13.5 % (11.5-15.5); WBC 9.2 k/uL (3.8-10.6)
--- NOTE | 2023-05-09 11:29 | XR ---
EXAMINATION TYPE: XR abdomen acute w cxr DATE OF EXAM: 05/09/2023 COMPARISON: 01/07/2019 HISTORY: Pain TECHNIQUE: Supine, upright, and left side down lateral decubitus views of the abdomen are obtained. FINDINGS: There is a coarsened interstitial markings and there is ectasia of the thoracic aorta. Prominence of the bilateral pulmonary arteries likely represent pulmonary arterial hypertension. Adenopathy not exc luded. A right basilar consolidation. Elevated right hemidiaphragm. Bowel gas pattern is nonspecific. There is diffuse osteopenia, degenerative changes of the spine and bilateral hip arthropathy. Faint calcifications in the pelvis are likely vascular. This calcification s along the right paraspinal line possibly related to the pancreas. There is a rounded calcification left upper quadrant measuring 1 cm compatible with a splenic artery aneurysm. IMPRESSION: 1. Nonspecific abdomen with no obstruction. 2. Right lower lobe infiltrate and small effusion correlate for mild venous congestion. Otherwise con turning sander tender pneumonia.
--- NOTE | 2023-05-09 11:34 | US ---
EXAMINATION TYPE: US abdomen complete DATE OF EXAM: 05/09/2023 COMPARISON: US & CT CLINICAL INDICATION: Female, 72 years old with history of R11.2 NAUSEA WITH VOMITING, UNSPECIFIED; Pt states loss of appetite, nausea, weight loss 15 lbs in 2 weeks TECHNIQUE: Multiple sonographic images of the abdomen are obtained. FINDINGS: EXAM MEASUREMENTS: Liver Length: 13.8 cm Gallbladder Wall: 0.2 cm CBD: 0.7 cm Spleen: 10.2 cm Right Kidney: 10.0 x 3.8 x 4.9 cm Left Kidney: 9.2 x 3.8 x 4.3 cm SPRING ENCASER NOTES: Pancreas: 3mm pancreatic duct visualized, tail obscured by overlying bowel gas, head difficult to ev aluate Liver: Visualized portions appeared wnl Gallbladder: wnl Evidence for sonographic Clemons's sign: No CBD: wnl Spleen: wnl Right Kidney: No evidence of hydro, possible 4mm nephrolith mid Left Kidney: No evidence of hydro, possible calculi scattered at lower pole, largest= 4mm Possible ill-defined hypoechoic lesion upper pole= 2.9 x 2.9 x 3.6 cm Upper IVC: wnl Abd Aorta: wnl Incidental finding right pleural effusion The liver is homogenous. The intrahepatic portion of the IVC and proximal abdominal aorta are within normal limits. There is no evidence of cholelithiasis. Common bile duct is unremarkable. The visu alized portions of the pancreas are homogenous. The spleen is unremarkable. Kidneys are symmetric a nd free of hydronephrosis. No renal lesions are seen. IMPRESSION: Right nonobstructing nephrolith. Otherwise unremarkable exam.
== END | disposition home or self-care (01) ==
LOC: RADUSWWP 09:57
PROVIDERS: ATTEND Family Medicine
DX: R91.8 Other nonspecific abnormal finding of lung field (principal); N20.0 Calculus of kidney; I87.8 Other specified disorders of veins
CPT/HCPCS: 36415; 74022; 76700; 80053; 82150; 83690; 85025

== ENCOUNTER 2023-05-11 12:15 | Inpatient (IN) | payer MEDICARE ==
--- NOTE | 2023-05-11 12:31 | ED ---
General Adult HPI - General Chief complaint: Weakness Stated complaint: dehydration Time Seen by Provider: 05/11/23 12:20 Source: patient, RN notes reviewed, old records reviewed Mode of arrival: ambulatory Limitations: no limitations - History of Present Illness Initial comments: This is a 72-year-old female who presents to the emergency department com plaining that she has not been able to eat or drink lately because she just is not hungry and she think she is getting dehydrated. Patient states become weaker and weaker and she is also been experiencing some vomiting and diarrhea and she states the vomiting has somewhat subsided but the diarrhea continues and is very bad. Patient denies any fever chills but patient has chest pain difficulty breathing shortness of breath patient has any cough or congestion. Patient denies any abdominal pain. Patient denies any back pain. Patient Nuys any dysuria hematuria urinary frequency. - Related Data Home Medications Medication Instructions Recorded Confirmed Atorvastatin Calcium [Lipitor] 10 mg PO DAILY 12/08/16 05/11/23 Metoprolol Tartrate [Lopressor] 50 mg PO BID 04/02/18 05/11/23 Insulin Glargine/Lixisenatide 45 - 60 units SQ DAILY 12/03/18 05/11/23 [Soliqua 100 Unit-33 Mcg/ml Pen] Enalapril [Vasotec] 2.5 mg PO DAILY 02/28/23 05/11/23 Glimepiride [Amaryl] 2 mg PO BID 05/11/23 05/11/23 Ivabradine HCl [Corlanor] 5 mg PO BID 05/11/23 05/11/23 Levofloxacin [Levaquin] 500 mg PO DAILY 05/11/23 05/11/23 Ondansetron Odt [Zofran Odt] 8 mg PO TID PRN 05/11/23 05/11/23 Previous Rx's Medication Instructions Recorded Clopidogrel [Plavix] 75 mg PO DAILY #30 tab 06/27/22 Allergies Allergy/AdvReac Type Severity Reaction Status Date / Time No Known Allergies Allergy Verified 05/11/23 14:34 Review of Systems ROS Statement: Those systems with pertinent positive or pertinent negative responses have been documented in the HPI. ROS Other: All systems not noted in ROS Statement are negative. Past Medical History Past Medical History: CVA/TIA, Diabetes Mellitus, Eye Disorder, Osteoarthritis (OA) Additional Past Medical History / Comment(s): CLOSED HEAD INJURY 2017. BRAIN ANEURYSMS repair with coils and stents. Glaucoma. Migraines. heart murmer, "occ extra heart beat". SOB (UNKNOWN CAUSE, HAS BEEN TO 2 SPECIALISTS, UNABLE DETERMINE CAUSE). TIA -no residual effects, pt states no MRI to confirm ( due to coils and stents) neurologist proceeded as if it was. Per pt ,on BP rx and statins to protect kidneys. History of Any Multi-Drug Resistant Organisms: None Reported Past Surgical History: Hysterectomy, Tonsillectomy Additional Past Surgical History / Comment(s): brain aneurysm repair X 2. laproscopic procedure. BILATERAL CATARACT/LENS. PLEAURAL effusion right side with thorancentesis Past Anesthesia/Blood Transfusion Reactions: No Reported Reaction Past Psychological History: No Psychological Hx Reported Smoking Status: Never smoker - Past Family History Father Family Medical History: Cancer, Deep Vein Thrombosis (DVT) Additional Family Medical History / Comment(s): prostate Mother Family Medical History: Cancer Additional Family Medical History / Comment(s): colon Brother(s) Family Medical History: Cancer General Exam - General Exam Comments Initial Comments: GENERAL: Patient is well-developed and well-nourished. Patient is nontoxic and well- hydrated and is in mild distress. ENT: Neck is soft and supple. No significant lymphadenopathy is noted. Oropharynx is clear. Dry mucous membranes. Neck has full range of motion without eliciting any pain. EYES: The sclera were anicteric and conjunctiva were pink and moist. Extraocular movements were intact and pupils were equal round and reactive to light. Eyeli ds were unremarkable. PULMONARY: Unlabored respirations. Good breath sounds bilaterally. No audible rales rhonchi or wheezing was noted. CARDIOVASCULAR: There is a regular rate and rhythm without any murmurs gallops or rubs. ABDOMEN: Soft and nontender with normal bowel sounds. No palpable organomegaly was noted. There is no palpable pulsatile mass. SKIN: Skin is clear with no lesions or rashes and otherwise unremarkable. NEUROLOGIC: Patient is alert and oriented x3. Cranial nerves II through XII are grossly intact. Motor and sensory are also intact. Normal speech, volume and content. Symmetrical smile. MUSCULOSKELETAL: Normal extremities with adequate strength and full range of motion. No lower extremity swelling or edema. No calf tenderness. LYMPHATICS: No significant lymphadenopathy is noted PSYCHIATRIC: Normal psychiatric evaluation. Limitations: no limitations Course Vital Signs 05/11/23 05/11/23 12:20 12:59 Temperature 97.5 F L Pulse Rate 94 Respiratory 16 Rate Blood Pressure 110/69 O2 Sat by Pulse 98 87 L Oximetry Medical Decision Making - Medical Decision Making EKG is interpreted by myself. EKG shows sinus rhythm at 86 bpm MI interval 162 QRS is 88 QT interval 351 QTc is 395. Patient's EKG shows no ST segment ovation or depression. Was pt. sent in by a medical professional or institution (, PA, IMPLEMENTATION ENGINEER, urgent care, hospital, or correction...) When possible be specific @ -No Did you speak to anyone other than the patient for history (EMS, parent, family, police, friend...)? What history was obtained from this source @ -No Did you review nursing and triage notes (agree or disagree)? Why? @ -I reviewed and agree with nursing and triage notes Were old charts reviewed (outside hosp., previous admission, EMS record, old EKG, old radiological studies, urgent care reports/EKG's, correction records)? Report findings @ -Reviewed prior charts and prior lab work on this patient Differential Diagnosis (chest pain, altered mental status, abdominal pain women, abdominal pain men, vaginal bleeding, weakness, fever, dyspnea, syncope, headache, dizziness, GI bleed, back pain, seizure, CVA, palpatations, mental health, musculoskeletal)? @ -Differential Dyspnea: Coronary syndrome, arrhythmia, tamponade, asthma, COPD, pulmonary embolism, pneumonia, pneumothorax, pulmonary effusion, anaphylaxis, diabetic ketoacidosis, flailed chest, pulmonary contusion, diaphragmatic rupture, anemia, ne uromuscular, this is not meant to be an all-inclusive list. Differential Weakness: Hypoglycemia, shock, sepsis, hyponatremia, anemia, infection, FL, ETOH, adverse medicine reaction, overdose, stroke, this is not meant to be an all-inclusive list. EKG interpreted by me (3pts min.). @ -As above X-rays interpreted by me (1pt min.). @ -Chest x-ray shows pleural effusion CT interpreted by me (1pt min.). @ -CT of the chest shows a bilateral pleural effusion right side is much worse than left. Unchanged from prior U/S interpreted by me (1pt. min.). @ -None done What testing was considered but not performed or refused? (CT, X-rays, U/S, labs)? Why? @ -None What meds were considered but not given or refused? Why? @ -None Did you discuss the management of the patient with other professionals (pro fessionals i.e. , PA, IMPLEMENTATION ENGINEER, lab, RT, psych nurse, social service agency director, cat tender, teacher, civil preparedness officer, case aide)? Give summary @ -I spoke with Dr. Rivers he agreed admit the patient to the patient with admitting orders Was smoking cessation discussed for >3mins.? @ -No Was critical care preformed (if so, how long)? @ -No Were there social determinants of health that impacted care today? How? (Home lessness, low income, unemployed, alcoholism, drug addiction, transportation, low edu. Level, literacy, decrease access to med. care, [facility], rehab)? @ -No Was there de-escalation of care discussed even if they declined (Discuss DNR or withdrawal of care, Hospice)? DNR status @ -No What co-morbidities impacted this encounter? (DM, HTN, Smoking, COPD, CAD, Cancer, CVA, ARF, Chemo, Hep., AIDS, mental health diagnosis, sleep apnea, morbid obesity)? @ -None Was patient admitted / discharged? Hospital course, mention meds given and route, prescriptions, significant lab abnormalities, going to OR and other pertinent info. @ -Patient came in complaining of diarrhea she got Lomotil for that. Patient then states she was sometimes short of breath when she was getting up and around I noticed that her pulse ox was dipping down into the 80s on room air so I put on 2 L to get an ABG ABG indicated that her pO2 was 58 and air O2 sat was 91. Patient will be admitted to Dr. Rivers she will be hydrated she will be given medicine for her her diarrhea. Patient will have a pulmonary consult as well Undiagnosed new problem with uncertain prognosis? @ -No Drug Therapy requiring intensive monitoring for toxicity (Heparin, Nitro, Insulin, Cardizem)? @ -No Were any procedures done? @ -No Diagnosis/symptom? @ -Pleural effusions Acute, or Chronic, or Acute on Chronic? @ -Acute Uncomplicated (without systemic symptoms) or Complicated (systemic symptoms)? @ -Complicated Side effects of treatment? @ -No Exacerbation, Progression, or Severe Exacerbation? @ -No Poses a threat to life or bodily function? How? (Chest pain, [place], FL, pneumonia, PE, COPD, DKA, ARF, appy, cholecystitis, CVA, Diverticulitis, Homicidal, Suicidal, threat to staff... and all critical care pts) @ -No Diagnosis/symptom? @ -Hypoxia Acute, or Chronic, or Acute on Chronic? @ -Acute Uncomplicated (without systemic symptoms) or Complicated (systemic symptoms)? @ -Complicated Side effects of treatment? @ -None Exacerbation, Progression, or Severe Exacerbation] @ -No Poses a threat to life or bodily function? @ -Yes this could lead to endorgan dysfunction Diagnosis/symptom? @ -Dehydration Acute, or Chronic, or Acute on Chronic? @ -Acute Uncomplicated (without systemic symptoms) or Complicated (systemic symptoms)? @ -Complicated Side effects of treatment? @ -None Exacerbation, Progression, or Severe Exacerbation] @ -No Poses a threat to life or bodily function? @ -No Diagnosis/symptom? @ -Diarrhea Acute, or Chronic, or Acute on Chronic? @ -Acute on chronic Uncomplicated (without systemic symptoms) or Complicated (systemic symptoms)? @ -Complicated Side effects of treatment? @ -None Exacerbation, Progression, or Severe Exacerbation] @ -No Poses a threat to life or bodily function? @ -No Diagnosis/symptom? @ -Renal insufficiency Acute, or Chronic, or Acute on Chronic? @ -Acute Uncomplicated (without systemic symptoms) or Complicated (systemic symptoms)? @ -Complicated Side effects of treatment? @ -None Exacerbation, Progression, or Severe Exacerbation] @ -No Poses a threat to life or bodily function? @ -No - Lab Data Result diagrams: 05/11/23 12:39 05/11/23 12:39 Lab Results 05/11/23 05/11/23 05/11/23 Range/Units 12:39 12:39 12:39 WBC 8.3 (3.8-10.6) k/uL RBC 4.99 (3.80-5.40) m/uL Hgb 14.7 (11.4-16.0) gm/dL Hct 45.0 (34.0-46.0) % MCV 90.2 (80.0-100.0) fL MCH 29.4 (25.0-35.0) pg MCHC 32.5 (31.0-37.0) g/dL RDW 13.2 (11.5-15.5) % Plt Count 176 (150-450) k/uL MPV 7.7 Neutrophils % 61 % Lymphocytes % 21 % Monocytes % 8 % Eosinophils % 6 % Basophils % 1 % Neutrophils # 5.1 (1.3-7.7) k/uL Lymphocytes # 1.7 (1.0-4.8) k/uL Monocytes # 0.6 (0-1.0) k/uL Eosinophils # 0.5 (0-0.7) k/uL Basophils # 0.0 (0-0.2) k/uL PT 12.6 H (10.0-12.5) sec INR 1.2 H (<1.2) APTT 24.0 (22.0-30.0) sec D-Dimer (<0.60) mg/L FEU Sample Site ABG pH (7.35-7.45) ABG pCO2 (35-45) mmHg ABG pO2 (83-108) mmHg ABG HCO3 (21-25) mmol/L ABG Total CO2 (19-24) mmol/L ABG O2 Saturation (94-97) % ABG Base Excess mmol/L Indra Test FiO2 % Sodium 138 (137-145) mmol/L Potassium 4.2 (3.5-5.1) mmol/L Chloride 103 (98-107) mmol/L Carbon Dioxide 26 (22-30) mmol/L Anion Gap 9 mmol/L BUN 29 H (7-17) mg/dL Creatinine 1.62 H (0.52-1.04) mg/dL Est GFR (CKD-EPI)AfAm 36 (>60 ml/min/1.73 sqM) Est GFR (CKD-EPI)NonAf 31 (>60 ml/min/1.73 sqM) Glucose 141 H (74-99) mg/dL Plasma Lactic Acid Matty (0.7-2.0) mmol/L Calcium 10.4 H (8.4-10.2) mg/dL Total Bilirubin 0.8 (0.2-1.3) mg/dL AST 33 (14-36) U/L ALT 15 (4-34) U/L Alkaline Phosphatase 66 (38-126) U/L Troponin I (0.000-0.034) ng/mL Total Protein 6.3 (6.3-8.2) g/dL Albumin 3.6 (3.5-5.0) g/dL Lipase 615 H (23-300) U/L Influenza Type A (PCR) (Not Detectd) Influenza Type B (PCR) (Not Detectd) RSV (PCR) (Not Detectd) SARS-CoV-2 (PCR) (Not Detectd) 05/11/23 05/11/23 05/11/23 Range/Units 12:39 12:39 12:39 WBC (3.8-10.6) k/uL RBC (3.80-5.40) m/uL Hgb (11.4-16.0) gm/dL Hct (34.0-46.0) % MCV (80.0-100.0) fL MCH (25.0-35.0) pg MCHC (31.0-37.0) g/dL RDW (11.5-15.5) % Plt Count (150-450) k/uL MPV Neutrophils % % Lymphocytes % % Monocytes % % Eosinophils % % Basophils % % Neutrophils # (1.3-7.7) k/uL Lymphocytes # (1.0-4.8) k/uL Monocytes # (0-1.0) k/uL Eosinophils # (0-0.7) k/uL Basophils # (0-0.2) k/uL PT (10.0-12.5) sec INR (<1.2) APTT (22.0-30.0) sec D-Dimer (<0.60) mg/L FEU Sample Site ABG pH (7.35-7.45) ABG pCO2 (35-45) mmHg ABG pO2 (83-108) mmHg ABG HCO3 (21-25) mmol/L ABG Total CO2 (19-24) mmol/L ABG O2 Saturation (94-97) % ABG Base Excess mmol/L Indra Test FiO2 % Sodium (137-145) mmol/L Potassium (3.5-5.1) mmol/L Chloride (98-107) mmol/L Carbon Dioxide (22-30) mmol/L Anion Gap mmol/L BUN (7-17) mg/dL Creatinine (0.52-1.04) mg/dL Est GFR (CKD-EPI)AfAm (>60 ml/min/1.73 sqM) Est GFR (CKD-EPI)NonAf (>60 ml/min/1.73 sqM) Glucose (74-99) mg/dL Plasma Lactic Acid Matty 1.3 (0.7-2.0) mmol/L Calcium (8.4-10.2) mg/dL Total Bilirubin (0.2-1.3) mg/dL AST (14-36) U/L ALT (4-34) U/L Alkaline Phosphatase (38-126) U/L Troponin I 0.013 (0.000-0.034) ng/mL Total Protein (6.3-8.2) g/dL Albumin (3.5-5.0) g/dL Lipase (23-300) U/L Influenza Type A (PCR) Not Detected (Not Detectd) Influenza Type B (PCR) Not Detected (Not Detectd) RSV (PCR) Not Detected (Not Detectd) SARS-CoV-2 (PCR) Not Detected (Not Detectd) 05/11/23 05/11/23 Range/Units 12:39 13:20 WBC (3.8-10.6) k/uL RBC (3.80-5.40) m/uL Hgb (11.4-16.0) gm/dL Hct (34.0-46.0) % MCV (80.0-100.0) fL MCH (25.0-35.0) pg MCHC (31.0-37.0) g/dL RDW (11.5-15.5) % Plt Count (150-450) k/uL MPV Neutrophils % % Lymphocytes % % Monocytes % % Eosinophils % % Basophils % % Neutrophils # (1.3-7.7) k/uL Lymphocytes # (1.0-4.8) k/uL Monocytes # (0-1.0) k/uL Eosinophils # (0-0.7) k/uL Basophils # (0-0.2) k/uL PT (10.0-12.5) sec INR (<1.2) APTT (22.0-30.0) sec D-Dimer 1.82 H (<0.60) mg/L FEU Sample Site lrad ABG pH 7.44 (7.35-7.45) ABG pCO2 45 (35-45) mmHg ABG pO2 59 L* (83-108) mmHg ABG HCO3 31 H (21-25) mmol/L ABG Total CO2 32 H (19-24) mmol/L ABG O2 Saturation 90.9 L (94-97) % ABG Base Excess 6.4 mmol/L Indra Test Yes FiO2 21 % Sodium (137-145) mmol/L Potassium (3.5-5.1) mmol/L Chloride (98-107) mmol/L Carbon Dioxide (22-30) mmol/L Anion Gap mmol/L BUN (7-17) mg/dL Creatinine (0.52-1.04) mg/dL Est GFR (CKD-EPI)AfAm (>60 ml/min/1.73 sqM) Est GFR (CKD-EPI)NonAf (>60 ml/min/1.73 sqM) Glucose (74-99) mg/dL Plasma Lactic Acid Matty (0.7-2.0) mmol/L Calcium (8.4-10.2) mg/dL Total Bilirubin (0.2-1.3) mg/dL AST (14-36) U/L ALT (4-34) U/L Alkaline Phosphatase (38-126) U/L Troponin I (0.000-0.034) ng/mL Total Protein (6.3-8.2) g/dL Albumin (3.5-5.0) g/dL Lipase (23-300) U/L Influenza Type A (PCR) (Not Detectd) Influenza Type B (PCR) (Not Detectd) RSV (PCR) (Not Detectd) SARS-CoV-2 (PCR) (Not Detectd) Disposition Clinical Impression: Diarrhea, Hypoxia, Pleural effusion, Dehydration, Renal insufficiency Disposition: ADMITTED IP TO THIS HOSP Referrals: Donald Stanley MD [Primary Care Provider] - 1-2 days Time of Disposition: 17:10
[2023-05-11] MEDS: SODIUM CHLORIDE 0.9% 1,000 ML IV ONE ×2 (12:49→18:14)
[2023-05-11] MEDS: ONDANSETRON 4 MG/2 ML VIAL IVP STA (12:49)
[2023-05-11 13:08] LABS: Basophils % (A) 1 %; Eosinophils # (A) 0.5 k/uL (0-0.7); Eosinophils % (A) 6 %; HGB 14.7 gm/dL (11.4-16.0); Lymphocytes # (A) 1.7 k/uL (1.0-4.8); Lymphocytes % (A) 21 %; MCH 29.4 pg (25.0-35.0); MCHC 32.5 g/dL (31.0-37.0); MCV 90.2 fL (80.0-100.0); Mean Platelet Volume 7.7; Monocytes # (A) 0.6 k/uL (0-1.0); Monocytes % (A) 8 %; Neutrophils # (A) 5.1 k/uL (1.3-7.7); Neutrophils % (A) 61 %; Platelet Count 176 k/uL (150-450); RBC 4.99 m/uL (3.80-5.40); RDW 13.2 % (11.5-15.5); WBC 8.3 k/uL (3.8-10.6)
[2023-05-11 13:15] LABS: INR 1.2 (<1.2); Prothrombin Time 12.6 sec (10.0-12.5)
[2023-05-11 13:21] LABS: ALT 15 U/L (4-34); AST 33 U/L (14-36); African American GFR (CKD) 36 (>60 ml/min/1.73 sqM); Albumin 3.6 g/dL (3.5-5.0); Alkaline Phosphatase 66 U/L (38-126); Anion Gap 9 mmol/L; Blood Urea Nitrogen 29 mg/dL (7-17); Calcium 10.4 mg/dL (8.4-10.2); Carbon Dioxide 26 mmol/L (22-30); Chloride 103 mmol/L (98-107); Glucose 141 mg/dL (74-99); Lipase 615 U/L (23-300); Non-African American GFR(CKD) 31 (>60 ml/min/1.73 sqM); Potassium 4.2 mmol/L (3.5-5.1); Sodium 138 mmol/L (137-145); Total Bilirubin 0.8 mg/dL (0.2-1.3); Total Protein 6.3 g/dL (6.3-8.2)
[2023-05-11 13:34] LABS: ABG Base Excess 6.4 mmol/L; ABG HCO3 31 mmol/L (21-25); ABG PCO2 45 mmHg (35-45); ABG PH 7.44 (7.35-7.45); ABG TCO2 32 mmol/L (19-24); Allen Test Performed? Yes
[2023-05-11 13:36] LABS: ABG Oxygen Saturation 90.9 % (94-97); ABG PO2 59 mmHg (83-108)
[2023-05-11] MEDS: DIPHENOX-ATROP 2.5-0.025 MG 1 EACH TAB PO STA (14:01)
--- NOTE | 2023-05-11 14:49 | XR ---
EXAMINATION TYPE: XR chest 2V DATE OF EXAM: 05/11/2023 COMPARISON: 05/09/2023 TECHNIQUE: PA and lateral views submitted. HISTORY: Weakness FINDINGS: Right-sided consolidation and small effusion with interstitial pattern. Elevated right hemidiaphragm. Arthropathy of the shoulders. Degenerative change of the spine. There is consolidation in right midd le lobe. IMPRESSION: 1. Right-sided consolidation with pleural effusion correlate for CHF otherwise consider pneumonia.
--- NOTE | 2023-05-11 16:33 | CT ---
EXAMINATION TYPE: CT chest angio for PE DATE OF EXAM: 05/11/2023 COMPARISON: 01/28/2021 HISTORY: weakness, dizziness, dyspnea, elevated d dimer CT DLP: 302.2 mGycm Automated exposure control for dose reduction was used. CONTRAST: CT Chest for pulmonary embolism performed with with IV Contrast, patient injected with 80 ml mL of Is ovue 370. 3-D postprocessing was performed. FINDINGS: There is a persistent large right pleural effusion unchanged compared to previous. There is mild infi ltrate/atelectasis involving the right lung base adjacent to the effusion and persistent mild atelect asis in the right upper lobe which is stable. There is diffuse groundglass density predominantly within the left lung but not as prominent on the p rior study. There is a small left pleural effusion. There is persistent mediastinal and bilateral hilar adenopathy. There are no filling defects within the pulmonary arteries or segmental branches to suggest pulmonary embolism. Limited scanning through the upper abdomen reveals no gross abnormality. No focal osseous lesions are seen. IMPRESSION: 1. No evidence of pulmonary edema 2. Essentially no change in the bilateral pleural effusions, small on the left and large on the right 3. No change in the moderate mediastinal and bilateral hilar adenopathy. 4. diffuse groundglass density in the left lung less severe than that seen on the prior study.
[2023-05-11] MEDS: SODIUM CHLORIDE 0.9% 500 ML 500 ML IV ONE (16:54)
[2023-05-11 17:17] LABS: Appearance,Urine Cloudy (Clear); Bacteria,Urine Rare /hpf; Bilirubin,Urine Negative (Negative); Blood,Urine Negative (Negative); Color,Urine Colorless; Glucose,Urine (UA) Negative (Negative); Ketones,Urine Negative (Negative); Leukocyte Esterase,Urine Large (Negative); Mucus,Urine Few /hpf; Nitrite,Urine Negative (Negative); PH, Urine 6.5 (5.0-8.0); Protein,Urine Trace (Negative); RBC,Urine 8 /hpf (0-5); Squamous Epithelial Cell,Urine 38 /hpf (0-4); Urobilinogen,Urine <2.0 mg/dL (<2.0); WBC,Urine 61 /hpf (0-5)
[2023-05-11] MEDS: DIPHENOX-ATROP 2.5-0.025 MG 1 EACH TAB PO SCH (18:14)
[2023-05-11 22:34] LABS: Glucose,Whole Blood 151 mg/dL (70-110)
--- NOTE | 2023-05-11 22:48 | P.CNPUL ---
History of Present Illness Consult date: 05/11/23 Reason for consult: pleural effusion History of present illness: This is a 72-year-old female who presents to the emergency department complainin g that she has not been able to eat or drink lately because she just is not hungry and she think she is getting dehydrated. Patient states become weaker and weaker and she is also been experiencing some vomiting and diarrhea and she states the vomiting has somewhat subsided but the diarrhea continues and is very bad. Patient denies any fever chills but patient has chest pain difficulty breathing shortness of breath patient has any cough or congestion. Patient denies any abdominal pain. Patient denies any back pain. Room emergency department, the pa patient the emergency, the patient had the blood work which included a white cell count of 8.3, hemoglobin of 14.7 and a platelet count of 176. D-dimer was at 1.82. Coagulation profile was within normal limits. Blood gas on room air showed a pH of 7.44 with a pCO2 of 45 and a pO2 of 59. BUN is 29 with a creatinine of 1.6 and his sodium level is at 138 and a potassium level of 4.2. UA showed 61 WBCs 8 RBCs and rare bacteria. The viral screen was negative. CAT scan of the chest was done using the PE protocol and there was no evidence of any pulmonary embolism. Stable right-sided pleural effusion. Stable mediastinal lymphadenopathy and hilar lymphadenopathy. The previous described groundglass pulmonary infiltrates on earlier CAT scans back in 2020 were not seen. The patient is currently admitted to the hospital. The patient is undergoing further investigation. She is afebrile. She is on 3 L with a pulse ox of 97%. The patient has seen me in the office many years back. The last office visit was in 2019. She is known to have chronic bilateral lymphadenopathy of the hilum and mediastinum and a chronic right-sided pleural effusion. She has a history of diabetes mellitus. 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 MRA was recommended which was performed on 12/08/2016. This did demonstrate a 7 mm aneurysm at the terminal margin of the left internal carotid artery. Slightly irregular morphology. 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 She was referred to [facility] emergency room where she was subsequently transferred to [facility] in [place] and was under the care of a Dr. Swanson and had undergone stenting and placement of 7 coils to the left carotid artery most likely at the terminal margin. Her previous PFTs had revealed very minimal obstructive airway disease. A stress test in September 2018 ruled out cardiac ischemia. Ejection fraction was 55-60%. A computed tomography scan of the chest revealed small to moderate right-sided pleural effusion. Mediastinal and bilateral hilar lymphadenopathy measuring 1.5 cm.Some right middle lobe syndrome and collapse. I performed a bronchoscopy. Transbronchial needle aspirate of the mediastinal lymph nodes was negative for malignancy. There was some endobronchial irregularities in the right middle lobe and transbronchial biopsies were done and it showed non-necrotizing granulomatous infection. Note that the stay is for fungal organisms and acid fast were negative. The cultures also came back negative. There was some degree of inflammation and crush artifact. There was evidence of non-nonnecrotizing gra nuloma accompanied by chronic inflammation. This can be suggestive of sarcoidosis which is obviously a diagnosis of exclusion. The patient's CAT scan of the chest and the PET scan showed a right-sided pleural effusion which is not typical of sarcoidosis. Her blood work from 12/05/2018 was within normal limits. Elder levels are low. The pleural effusion that was drained from the right lung was a transudate. The pleural fluid that was drained from the right lung showed a low LDH and a protein of 3.9. The amount of fluid was small for cytology. In any rate, we opted to monitor his mediastinal lymph nodes and a follow-up CAT scan of the chest that was done on 2018 showed stable mediastinal lymph nodes without any interval change. CAT scan of the chest that was done 07/23/2019 , The findi ngs are essentially stable. I would centimeters lymph nodes are unchanged and a right-sided pleural effusion is also unchanged. The histoplasma titers were also negative. The patient has no fever. No chills. No night sweats. No weight loss. No kidney stones. No skin rashes. Note weight loss or any other constitutional symptoms. The patient had a FU CAT scan of the chest was done on 01/31/2020 and this was compared to the previous CAT scan. There are unchanged enlarged paratracheal and subcarinal lymph nodes and these are all stable. The right hilar lymph node is also stable and there is no change in the size or the number of the mediastinal lymph nodes and the patient has a chronic right-sided pleural effusion which on compression atelectasis of the right middle lobe that remains also unchanged. The patient was also in the hospital back in 2022 for symptoms of TIA The patient presented with symptoms of left-sided numbness and she was again worked up including a echocardiogram that showed a preserved LV function and a negative bubble study and a CAT scan of the abdomen neck showing patent vertebral and carotid arteries and an aneurysm clip on the left at the carotid terminus with out any large vessel intracranial artery occlusion or aneurysm. The patient was treated with Plavix and she was discharged Review of Systems Constitutional: Reports fever, Reports poor appetite Eyes: denies as per HPI, denies blurred vision, denies bulging eye, denies decreased vision, denies diplopia, denies discharge, denies dry eye, denies irritation, denies itching, denies pain, denies photophobia, denies loss of peripheral vision, denies loss of vision, denies tunnel vision/blind spots Ears: deny: decreased hearing, ear discharge, earache, tinnitus Ears, nose, mouth and throat: Reports as per HPI Breasts: absent: as per HPI, change in shape, gynecomastia, masses, nipple discharge, pain, skin changes, swelling Cardiovascular: Reports decreased exercise tolerance Respiratory: Reports dyspnea Gastrointestinal: Reports diarrhea, Reports nausea, Reports vomiting Genitourinary: Reports as per HPI Menstruation: Reports as per HPI Musculoskeletal: Reports as per HPI Musculoskeletal: absent: ankle pain, ankle stiffness, ankle swelling Integumentary: Reports as per HPI Neurological: Reports as per HPI Psychiatric: Reports as per HPI Endocrine: Reports as per HPI Hematologic/Lymphatic: Reports as per HPI Allergic/Immunologic: Reports as per HPI Past Medical History Past Medical History: CVA/TIA, Diabetes Mellitus, Eye Disorder, Osteoarthritis (OA) Additional Past Medical History / Comment(s): CLOSED HEAD INJURY 2017. BRAIN ANEURYSMS repair with coils and stents. Glaucoma. Migraines. heart murmer, "occ extra heart beat". SOB (UNKNOWN CAUSE, HAS BEEN TO 2 SPECIALISTS, UNABLE DETERMINE CAUSE). TIA -no residual effects, pt states no MRI to confirm ( due to coils and stents) neurologist proceeded as if it was. Per pt ,on BP rx and statins to protect kidneys. History of Any Multi-Drug Resistant Organisms: None Reported Past Surgical History: Hysterectomy, Tonsillectomy Additional Past Surgical History / Comment(s): brain aneurysm repair X 2. laproscopic procedure. BILATERAL CATARACT/LENS. PLEAURAL effusion right side with thorancentesis Past Anesthesia/Blood Transfusion Reactions: No Reported Reaction Smoking Status: Never smoker - Past Family History Father Family Medical History: Cancer, Deep Vein Thrombosis (DVT) Additional Family Medical History / Comment(s): prostate Mother Family Medical History: Cancer Additional Family Medical History / Comment(s): colon Brother(s) Family Medical History: Cancer Medications and Allergies Home Medications Medication Instructions Recorded Confirmed Type Atorvastatin Calcium [Lipitor] 10 mg PO DAILY 12/08/16 05/11/23 History Metoprolol Tartrate [Lopressor] 50 mg PO BID 04/02/18 05/11/23 History Insulin Glargine/Lixisenatide 45 - 60 units SQ DAILY 12/03/18 05/11/23 History [Soliqua 100 Unit-33 Mcg/ml Pen] Clopidogrel [Plavix] 75 mg PO DAILY #30 tab 06/27/22 05/11/23 Rx Enalapril [Vasotec] 2.5 mg PO DAILY 02/28/23 05/11/23 History Glimepiride [Amaryl] 2 mg PO BID 05/11/23 05/11/23 History Ivabradine HCl [Corlanor] 5 mg PO BID 05/11/23 05/11/23 History Levofloxacin [Levaquin] 500 mg PO DAILY 05/11/23 05/11/23 History Ondansetron Odt [Zofran Odt] 8 mg PO TID PRN 05/11/23 05/11/23 History Allergies Allergy/AdvReac Type Severity Reaction Status Date / Time No Known Allergies Allergy Verified 05/11/23 14:34 Physical Exam Vitals: Vital Signs Temp Pulse Resp BP Pulse Ox 05/11/23 22:03 97.6 F 99 18 129/57 95 05/11/23 18:17 87 20 142/48 97 05/11/23 17:22 75 21 127/53 97 05/11/23 15:00 86 20 129/60 99 05/11/23 12:59 87 L 05/11/23 12:20 97.5 F L 94 16 110/69 98 Intake and Output 05/11/23 05/11/23 05/11/23 06:59 14:59 22:59 Other: Weight 67.132 kg 67.132 kg GENERAL: Patient is well-developed and well-nourished. Patient is nontoxic and well- hydrated and is in mild distress. The patient is currently on 3 L of oxygen by nasal cannula ENT: Neck is soft and supple. No significant lymphadenopathy is noted. Oropharynx is clear. Dry mucous membranes. Neck has full range of motion without eliciting any pain. EYES: The sclera were anicteric and conjunctiva were pink and moist. Extraocular movements were intact and pupils were equal round and reactive to light. Eyelids were unremarkable. PULMONARY: Unlabored respirations. Good breath sounds bilaterally. No audible rales rhonchi or wheezing was noted. The patient's breath sounds are diminished in the right lung base CARDIOVASCULAR: There is a regular rate and rhythm without any murmurs gallops or rubs. ABDOMEN: Soft and nontender with normal bowel sounds. No palpable organomegaly was noted. There is no palpable pulsatile mass. SKIN: Skin is clear with no lesions or rashes and otherwise unremarkable. NEUROLOGIC: Patient is alert and oriented x3. Cranial nerves II through XII are grossly intact. Motor and sensory are also intact. Normal speech, volume and content. Symmetrical smile. MUSCULOSKELETAL: Normal extremities with adequate strength and full range of motion. No lower extremity swelling or edema. No calf tenderness. LYMPHATICS: No significant lymphadenopathy is noted PSYCHIATRIC: Normal psychiatric evaluation. Results - Laboratory Findings CBC and BMP: 05/11/23 12:39 05/11/23 12:39 ABG ABG pH 7.44 (7.35-7.45) 05/11/23 13:20 ABG pCO2 45 mmHg (35-45) 05/11/23 13:20 ABG pO2 59 mmHg (83-108) L* 05/11/23 13:20 ABG O2 Saturation 90.9 % (94-97) L 05/11/23 13:20 PT/INR, D-dimer PT 12.6 sec (10.0-12.5) H 05/11/23 12:39 INR 1.2 (<1.2) H 05/11/23 12:39 D-Dimer 1.82 mg/L FEU (<0.60) H 05/11/23 12:39 Abnormal lab findings: Abnormal Labs 05/11/23 05/11/23 05/11/23 12:39 12:39 12:39 PT 12.6 H INR 1.2 H D-Dimer 1.82 H ABG pO2 ABG HCO3 ABG Total CO2 ABG O2 Saturation BUN 29 H Creatinine 1.62 H Glucose 141 H Calcium 10.4 H Lipase 615 H Urine Appearance Ur Specific [place] Urine Protein Ur Leukocyte Esterase Urine RBC Urine WBC Ur Squamous Epith Cells Urine Bacteria Urine Mucus 05/11/23 05/11/23 13:20 16:49 PT INR D-Dimer ABG pO2 59 L* ABG HCO3 31 H ABG Total CO2 32 H ABG O2 Saturation 90.9 L BUN Creatinine Glucose Calcium Lipase Urine Appearance Cloudy H Ur Specific [place] 1.050 H Urine Protein Trace H Ur Leukocyte Esterase Large H Urine RBC 8 H Urine WBC 61 H Ur Squamous Epith Cells 38 H Urine Bacteria Rare H Urine Mucus Few H - Diagnostic Findings Chest x-ray: image reviewed U/S of Legs: image reviewed Assessment and Plan Plan: Acute dehydration, secondary to diminished oral intake along with nausea and emesis and diarrhea, currently under investigation Acute kidney injury secondary to above Acute hypoxic respiratory failure and patient is currently on 3 L of oxygen by nasal cannula Mediastinal lymphadenopathy, a chronic finding that dates back to 2019. The patient has been extensively evaluated. The patient underwent bronchoscopy and transbronchial biopsies back in 2019 and the patient was found to have nonnecrotizing granulomatous changes consistent with sarcoidosis. This was a diagnosis of exclusion. Infectious agents were essentially ruled out and this includes atypical and typical mycobacterial organisms and fungal elements. Histoplasma titers were negative. The patient had serial CAT scans and this included the most recent CAT scan of the chest that was done during this current admission and this was compared to the earlier CAT scan from 01/29/2021 and the findings in terms of the mediastinal lymph nodes have been essentially stable. Right-sided pleural effusion with previous thoracentesis indicating a transudate Cerebral artery aneurysm coiling hospitalized back in 2016 and this procedure was done in [facility] Chronic dyspnea on exertion secondary to above Diabetes mellitus type 2 Previous history of CVA and an episode of TIA that occurred in 2022 Colonic diverticulosis Glucoma Suspected UTI Plan Diarrhea workup. Consider urine tract infection. Awaiting input from the medical group. Currently covered with empiric antibiotics. Pulmonary findings are essentially stable at this point in time. The mediastinal lymph nodes and pleural effusion are essentially stable.
[2023-05-11] MEDS ORDERED: DEXTROSE 50% SYRINGE 50 ML IVP PRN ×2 (22:54)
--- NOTE | 2023-05-11 23:21 | P.HPIM ---
History of Present Illness H&P Date: 05/11/23 Chief Complaint: Generalized weakness Patient is a 72-year-old female with a past medical history of CVA/TIA with left-sided numbness in 2022, diabetes type 2 insulin-dependent, history of brain aneurysm s/p repair with coil and stents, glaucoma, migraine headaches and osteo arthritis was sent to ER from her PCPs office due to complaints of generalized weakness for the past 3 weeks and patient has not been eating well. She has been having nausea and episodes of vomiting. She states that she has been getting weaker and weaker even though nausea vomiting did improve but she still having diarrhea for the past 1 week. Patient otherwise denies any complaints of chest pain. Denies any worsening shortness of breath.. No cough or congestion. Denies any leg swelling. P atient was also complaining of lower abdominal discomfort. Denies dysuria or hematuria. Patient does have history of mediastinal and right hilar lymphadenopathy and previous history of right-sided thoracentesis about 4 years ago. Patient was on follow-up with Dr. Gold as an outpatient. Chest x-ray showed right-sided consolidation with pleural effusion correlate for CHF otherwise considered pneumonia. Patient does have right-sided consolidation and small effusion with interstitial pattern. Elevated right hemidiaphragm. EKG showed sinus rhythm. CTA chest was done due to elevated D-dimer level showed no evidence of PE. Essentially no change in the bilateral pleural effusions, small on on the left and large on the right. No change in the mediastinal lymphadenopathy and bilateral hilar adenopathy. Diffuse groundglass density in the left lung less severe than that seen on the prior study. Laboratory data showed WBC 8.3 hemoglobin 14.7 platelets 176 D-dimer 1.82 ABG showed pH 7.44, p CO2 45 and pO2 59 Sodium 138 potassium 4.2 chloride 103 bicarb is 26 BUN 29 creatinine 1.62 and blood sugar 141, calcium 10.4 Liver enzymes are not elevated. Lipase level 615 Urinalysis showed colorless cloudy large leukocyte esterase with elevated RBCs 8 and WBC 61 and squamous epithelial cells 38. Influenza AB RSV and COVID-19 PCR not detected. Patient had screening colonoscopy February 2023. Review of Systems Constitutional: Patient denies any fever or chills . Patient does have generalized weakness and fatigue Abdomen: Patient did have nausea vomiting. Ongoing watery diarrhea. Mild lower abdominal abdominal pain/discomfort. Cardiovascular: Patient denies any chest pain or worsening short of breath no palpitations. No leg swelling Respiratory: patient denied any cough is from production. No shortness of breath Neurologic: Patient denied any numbness or tingling headache. Musculoskeletal: Patient denies any complaints of joint swelling or deformity. Skin: Negative Psychiatric: Negative Endocrine: No heat or cold intolerance. No recent weight gain. Genitourinary: No dysuria or hematuria. All other 14 point ROS negative except the above Past Medical History Past Medical History: CVA/TIA, Diabetes Mellitus, Eye Disorder, Osteoarthritis (OA) Additional Past Medical History / Comment(s): CLOSED HEAD INJURY 2017. BRAIN ANEURYSMS repair with coils and stents. Glaucoma. Migraines. heart murmer, "occ extra heart beat". SOB (UNKNOWN CAUSE, HAS BEEN TO 2 SPECIALISTS, UNABLE DETERMINE CAUSE). TIA -no residual effects, pt states no MRI to confirm ( due to coils and stents) neurologist proceeded as if it was. Per pt ,on BP rx and statins to protect kidneys. History of Any Multi-Drug Resistant Organisms: None Reported Past Surgical History: Hysterectomy, Tonsillectomy Additional Past Surgical History / Comment(s): brain aneurysm repair X 2. laproscopic procedure. BILATERAL CATARACT/LENS. PLEAURAL effusion right side with thorancentesis Past Anesthesia/Blood Transfusion Reactions: No Reported Reaction Smoking Status: Never smoker - Past Family History Father Family Medical History: Cancer, Deep Vein Thrombosis (DVT) Additional Family Medical History / Comment(s): prostate Mother Family Medical History: Cancer Additional Family Medical History / Comment(s): colon Brother(s) Family Medical History: Cancer Medications and Allergies Home Medications Medication Instructions Recorded Confirmed Type Atorvastatin Calcium [Lipitor] 10 mg PO DAILY 12/08/16 05/11/23 History Metoprolol Tartrate [Lopressor] 50 mg PO BID 04/02/18 05/11/23 History Insulin Glargine/Lixisenatide 45 - 60 units SQ DAILY 12/03/18 05/11/23 History [Soliqua 100 Unit-33 Mcg/ml Pen] Clopidogrel [Plavix] 75 mg PO DAILY #30 tab 06/27/22 05/11/23 Rx Enalapril [Vasotec] 2.5 mg PO DAILY 02/28/23 05/11/23 History Glimepiride [Amaryl] 2 mg PO BID 05/11/23 05/11/23 History Ivabradine HCl [Corlanor] 5 mg PO BID 05/11/23 05/11/23 History Levofloxacin [Levaquin] 500 mg PO DAILY 05/11/23 05/11/23 History Ondansetron Odt [Zofran Odt] 8 mg PO TID PRN 05/11/23 05/11/23 History Allergies Allergy/AdvReac Type Severity Reaction Status Date / Time No Known Allergies Allergy Verified 05/11/23 14:34 Physical Exam Vitals: Vital Signs Temp Pulse Pulse Resp BP BP Pulse Ox 05/11/23 22:38 97.4 F L 88 16 143/71 96 05/11/23 22:03 97.6 F 99 18 129/57 95 05/11/23 18:17 87 20 142/48 97 05/11/23 17:22 75 21 127/53 97 05/11/23 15:00 86 20 129/60 99 05/11/23 12:59 87 L 05/11/23 12:20 97.5 F L 94 16 110/69 98 Intake and Output 05/11/23 05/11/23 05/11/23 06:59 14:59 22:59 Other: Weight 67.132 kg 67.132 kg PHYSICAL EXAMINATION: Patient is lying in the bed comfortably, no acute distress, awake alert and oriented.. HEENT: Normocephalic. Neck is supple. Pupils reactive. Nostrils clear. Oral cavity is moist. Neck reveals no JVD, carotid bruits, or thyromegaly. CHEST EXAMINATION: Trachea is central. Symmetrical expansion. No wheezing. Right basilar crackles. Nonlabored breathing. CARDIAC: Normal S1, S2 with no gallops. Systolic murmur ABDOMEN: Soft. Bowel sounds normal. No organomegaly. No abdominal bruits. Extremities: reveal no edema. No clubbing or cyanosis Neurologically awake, alert, oriented x3 with well-coordinated movements. No focal deficits noted Skin: No rash or skin lesions. Psychiatric: Coperative. Nonsuicidal Musculoskeletal: No joint swelling or deformity. Normal range of motion. Results CBC & Chem 7: 05/11/23 12:39 05/11/23 12:39 Labs: Abnormal Lab Results - Last 24 Hours (Table) 05/11/23 05/11/23 05/11/23 Range/Units 12:39 12:39 12:39 PT 12.6 H (10.0-12.5) sec INR 1.2 H (<1.2) D-Dimer 1.82 H (<0.60) mg/L FEU ABG pO2 (83-108) mmHg ABG HCO3 (21-25) mmol/L ABG Total CO2 (19-24) mmol/L ABG O2 Saturation (94-97) % BUN 29 H (7-17) mg/dL Creatinine 1.62 H (0.52-1.04) mg/dL Glucose 141 H (74-99) mg/dL POC Glucose (mg/dL) (70-110) mg/dL Calcium 10.4 H (8.4-10.2) mg/dL Lipase 615 H (23-300) U/L Urine Appearance (Clear) Ur Specific [place] (1.001-1.035) Urine Protein (Negative) Ur Leukocyte Esterase (Negative) Urine RBC (0-5) /hpf Urine WBC (0-5) /hpf Ur Squamous Epith Cells (0-4) /hpf Urine Bacteria (None) /hpf Urine Mucus (None) /hpf 05/11/23 05/11/23 05/11/23 Range/Units 13:20 16:49 22:33 PT (10.0-12.5) sec INR (<1.2) D-Dimer (<0.60) mg/L FEU ABG pO2 59 L* (83-108) mmHg ABG HCO3 31 H (21-25) mmol/L ABG Total CO2 32 H (19-24) mmol/L ABG O2 Saturation 90.9 L (94-97) % BUN (7-17) mg/dL Creatinine (0.52-1.04) mg/dL Glucose (74-99) mg/dL POC Glucose (mg/dL) 151 H (70-110) mg/dL Calcium (8.4-10.2) mg/dL Lipase (23-300) U/L Urine Appearance Cloudy H (Clear) Ur Specific [place] 1.050 H (1.001-1.035) Urine Protein Trace H (Negative) Ur Leukocyte Esterase Large H (Negative) Urine RBC 8 H (0-5) /hpf Urine WBC 61 H (0-5) /hpf Ur Squamous Epith Cells 38 H (0-4) /hpf Urine Bacteria Rare H (None) /hpf Urine Mucus Few H (None) /hpf Thrombosis Risk Factor Assmnt - DVT/VTE Prophylaxis DVT/VTE Prophylaxis: Pharmacologic Prophylaxis ordered - Choose All That Apply Each Risk Factor Represents 2 Points: Age 61-74 years Each Risk Factor Represents 3 Points: Age 75 years or older, Family history of DVT/PE Thrombosis Risk Factor Assessment Total Risk Factor Score: 8 Thrombosis Risk Factor Assessment Level: High Risk Assessment and Plan Assessment: Acute hypoxemic respiratory failure requiring 3 approximately nasal cannula likely due to large right-sided pleural effusion. Unchanged from previous study as per CTA chest. Acute diarrhea x 1 week and recent history of nausea and vomiting and unable to tolerate oral diet. Acute kidney injury likely prerenal. Possible urinary tract infection. Urinalysis showed contaminated sample. History of mediastinal and right hilar lymphadenopathy. Patient had prior bronchoscopy and biopsy and also had a right-sided pleural effusion s/p thoracentesis about 4 years ago. Fluid analysis was transudative. Patient is o n follow-up with pulmonary as an outpatient. History of CVA/TIA with left-sided numbness in June 2022 suspected thalamic ischemic CVA. History of cerebral aneurysm status post coil and stent placement Hyperglycemia with uncontrolled diabetes type 2 insulin-dependent Osteoarthritis Glaucoma History of migraine headaches GI and DVT prophylaxis Plan: Patient will be continued on IV hydration with normal saline. Symptomatic management for the nausea and stool studies including C. difficile PCR was ordered. Patient will be started on antibiotics ceftriaxone and follow-up urine culture report. Plavix is on hold for possible thoracentesis by pulmonary. Continue with insulin regimen and titrate dose as needed. Patient will be continued on statins, metoprolol and enalapril is on hold due to acute kidney injury. Follow-up CBC and BMP tomorrow. Pulmonary was consulted. Continue to follow closely. Discussed with the patient and her family at bedside in detail. Time with Patient: Greater than 30
[2023-05-12] MEDS: HEPARIN SODIUM,PORCINE 5,000 UNIT/ML 1 ML VIAL SQ SCH
[2023-05-12] MEDS: METOPROLOL TARTRATE 50 MG TAB PO SCH
[2023-05-12 07:16] LABS: Glucose,Whole Blood 129 mg/dL (70-110)
[2023-05-12] MEDS: INSULIN ASPART (NovoLOG) 100 UNIT/ML VIAL SQ SCH (07:43)
[2023-05-12] MEDS ORDERED: lisinopriL 5 MG TAB PO SCH (09:00)
[2023-05-12] MEDS: ATORVASTATIN 10 MG TAB PO SCH (10:14)
[2023-05-12] MEDS: FAMOTIDINE 20 MG TAB PO SCH (10:15)
[2023-05-12] MEDS: NON FORMULARY DRUG (Insulin Glargine/Lixisenatide [Soliqua 100 Unit-33 Mcg/Ml Pen] 3 ML In SQ SCH (10:16)
[2023-05-12 11:48] LABS: Basophils # (A) 0.04 X 10*3/uL (0.00-0.10); Basophils % (A) 0.8 %; Eosinophils # (A) 0.46 X 10*3/uL (0.04-0.35); Eosinophils % (A) 9.3 %; HCT 36.7 % (37.2-46.3); HGB 11.8 g/dL (12.0-15.0); Lymphocytes # (A) 0.86 X 10*3/uL (0.90-5.00); Lymphocytes % (A) 17.3 %; MCH 28.6 pg (27.0-32.0); MCHC 32.2 g/dL (32.0-37.0); MCV 89.1 FL (80.0-97.0); Mean Platelet Volume 10.5 FL (9.5-12.2); Monocytes # (A) 0.67 X 10*3/uL (0.20-1.00); Monocytes % (A) 13.5 %; NRBC Per 100 WBC 0 X 10*3/uL (0.00-0.01); Neutrophils # (A) 2.93 X 10*3/uL (1.80-7.70); Neutrophils % (A) 58.9 %; Platelet Count 130 X 10*3/uL (140-440); RBC 4.12 X 10*6/uL (4.10-5.20); RDW 13.1 % (11.5-14.5); WBC 4.97 X 10*3/uL (4.50-10.00)
[2023-05-12 11:53] LABS: Glucose,Whole Blood 218 mg/dL (70-110)
[2023-05-12 12:10] LABS: BUN/Creat Ratio 14.86 Ratio (12.00-20.00); Blood Urea Nitrogen 20.8 mg/dL (9.0-27.0); Calcium 8.7 mg/dL (8.7-10.3); Carbon Dioxide 24.3 mmol/L (21.6-31.8); Chloride 108 mmol/L (96-109); Glucose 136 mg/dL (70-110); Potassium 4.2 mmol/L (3.5-5.5); Sodium 141 mmol/L (135-145)
[2023-05-12 12:32] VITALS: BMI 27.9
[2023-05-12] MEDS: SODIUM CHLORIDE 0.9% 1,000 ML IV SCH (12:45)
[2023-05-12] MEDS: CLOPIDOGREL 75 MG TAB PO SCH (13:06)
--- NOTE | 2023-05-12 16:41 | P.PN ---
Subjective Progress Note Date: 05/12/23 This is a 72-year-old female who presents to the emergency department complaining that she has not been able to eat or drink lately because she just is not hungry and she think she is getting dehydrated. Patient states become weaker and weaker and she is also been experiencing some vomiting and diarrhea and she states the vomiting has somewhat subsided but the diarrhea continues and is very bad. Patient denies any fever chills but patient has chest pain difficulty breathing shortness of breath patient has any cough or congestion. Patient denies any abdominal pain. Patient denies any back pain. Room emergency department, the pa patient the emergency, the patient had the blood work which included a white cell count of 8.3, hemoglobin of 14.7 and a platelet count of 176. D-dimer was at 1.82. Coagulation profile was within normal limits. Blood gas on room air showed a pH of 7.44 with a pCO2 of 45 and a pO2 of 59. BUN is 29 with a creatinine of 1.6 and his sodium level is at 138 and a potassium level of 4.2. UA showed 61 WBCs 8 RBCs and rare bacteria. The viral screen was negative. CAT scan of the chest was done using the PE protocol and there was no evidence of any pulmonary embolism. Stable right-sided pleural effusion. Stable mediastinal lymphadenopathy and hilar lymphadenopathy. The previous described groundglass pulmonary infiltrates on earlier CAT scans back in 2020 we re not seen. The patient is currently admitted to the hospital. The patient is undergoing further investigation. She is afebrile. She is on 3 L with a pulse ox of 97%. The patient has seen me in the office many years back. The last office visit was in 2019. She is known to have chronic bilateral lymphadenopathy of the hilum and mediastinum and a chronic right-sided pleural effusion. She has a history of diabetes mellitus. 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 MRA was recommended which was performed on 12/08/2016. This did demonstrate a 7 mm aneurysm at the terminal margin of the left internal carotid artery. Slightly irregular morphology. 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 She was referred to [facility] emergency room where she was subsequently transferred to [facility] in [place] and was under the care of a Dr. Swanson and had undergone stenting and placement of 7 coils to the left carotid artery most likely at the terminal margin. Her previous PFTs had revealed very minimal obstructive airway disease. A stress test in September 2018 ruled out cardiac ischemia. Ejection fraction was 55-60%. A computed tomography scan of the chest revealed small to moderate right-sided pleural effusion. Mediastinal and bilateral hilar lymphadenopathy measuring 1.5 cm.Some right middle lobe syndrome and collapse. I performed a bronchoscopy. Transbronchial needle aspirate of the mediastinal lymph nodes was negative for malignancy. There was some endobronchial irregularities in the right middle lobe and transbronchial biopsies were done and it showed non-necrotizing granulomatous infection. Note that the stay is for fungal organisms and acid fast were negative. The cultures also came back negative. There was some degree of inflammation and crush artifact. There was evidence of non-nonnecrotizing granuloma accompanied by chronic inflammation. This can be suggestive of sarcoidosis which is obviously a diagnosis of exclusion. The patient's CAT scan of the chest and the PET scan showed a right-sided pleural effusion which is not typical of sarcoidosis. Her blood work from 12/05/2018 was within normal limits. Elder levels are low. The pleural effusion that was drained from the right lung was a transudate. The pleural fluid that was drained from the right lung showed a low LDH and a protein of 3.9. The amount of fluid was small for cytology. In any rate, we opted to monitor his mediastinal lymph nodes and a follow-up CAT scan of the chest that was done on 2018 showed stable mediastinal lymph nodes without any interval change. CAT scan of the chest that was done 07/23/2019 , The findings are essentially stable. I would centimeters lymph nodes are unchanged and a right-sided pleural effusion is also unchanged. The histoplasma titers were also negative. The patient has no fever. No chills. No night sweats. No weight loss. No kidney stones. No skin rashes. Note weight loss or any other constitutional symptoms. The patient had a FU CAT scan of the chest was done on 01/31/2020 and this was compared to the previous CAT scan. There are unchanged enlarged paratracheal and subcarinal lymph nodes and these are all stable. The right hilar lymph node is also stable and there is no change in the size or the number of the mediastinal lymph nodes and the patient has a chronic right-sided pleural effusion which on compression atelectasis of the right middle lobe that remains also unchanged. The patient was also in the hospital back in 2022 for symptoms of TIA The patient presented with symptoms of left-sided numbness and she was again worked up including a echocardiogram that showed a preserved LV function and a negative bubble study and a CAT scan of the abdomen neck showing patent vertebral and carotid arteries and an aneurysm clip on the left at the carotid terminus without any large vessel intracranial artery occlusion or aneurysm. The patient was treated with Plavix and she was discharged On today's evaluation of 05/12/2023, the patient has no specific complaints. Diarrhea has been subsiding. Stool for C. difficile has been negative. No interval worsening shortness of breath. FiO2 will be weaned down and the patient is currently on 2 L of oxygen by nasal cannula. The white cell count is at 4.9 with a hemoglobin 11.8. No nausea or emesis on today's evaluation. She is on IV Rocephin. Awaiting urine cultures. Objective - Vital Signs Vital signs: Vital Signs Temp 97.7 F 05/12/23 13:31 Pulse 96 05/12/23 13:31 Resp 20 05/12/23 13:31 BP 129/78 05/12/23 13:31 Pulse Ox 93 L 05/12/23 13:33 FiO2 Intake & Output 05/11/23 05/12/23 05/12/23 18:59 06:59 18:59 Intake Total 590 Balance 590 Weight 67.132 kg 67.132 kg 67.132 kg Intake: Oral 590 Other: Voiding Method Toilet Toilet # Voids 2 1 # Bowel Movements 1 1 - Exam GENERAL: Patient is well-developed and well-nourished. Patient is nontoxic and well- hydrated and is in mild distress. The patient is currently on 2 L of oxygen by nasal cannula ENT: Neck is soft and supple. No significant lymphadenopathy is noted. Oropharynx is clear. Dry mucous membranes. Neck has full range of motion without eliciting any pain. EYES: The sclera were anicteric and conjunctiva were pink and moist. Extraocular movements were intact and pupils were equal round and reactive to light. Eyelids were unremarkable. PULMONARY: Unlabored respirations. Good breath sounds bilaterally. No audible rales rhonchi or wheezing was noted. The patient's breath sounds are diminished in the right lung base CARDIOVASCULAR: There is a regular rate and rhythm without any murmurs gallops or rubs. ABDOMEN: Soft and nontender with normal bowel sounds. No palpable organomegaly was noted. There is no palpable pulsatile mass. SKIN: Skin is clear with no lesions or rashes and otherwise unremarkable. NEUROLOGIC: Patient is alert and oriented x3. Cranial nerves II through XII are grossly intact. Motor and sensory are also intact. Normal speech, volume and content. Symmetrical smile. MUSCULOSKELETAL: Normal extremities with adequate strength and full range of motion. No lower extremity swelling or edema. No calf tenderness. LYMPHATICS: No significant lymphadenopathy is noted PSYCHIATRIC: Normal psychiatric evaluation. - Labs CBC & Chem 7: 05/12/23 05:54 05/12/23 05:54 Labs: Abnormal Lab Results - Last 24 Hours (Table) 05/11/23 05/11/23 05/12/23 Range/Units 16:49 22:33 05:54 Hgb (12.0-15.0) g/dL Hct (37.2-46.3) % Plt Count (140-440) X 10*3/uL Lymphocytes # (0.90-5.00) X 10*3/uL Eosinophils # (0.04-0.35) X 10*3/uL Est GFR (CKD-EPI) (>=60) Glucose (70-110) mg/dL POC Glucose (mg/dL) 151 H (70-110) mg/dL Hemoglobin A1c 7.5 H (<=6.0) % Urine Appearance Cloudy H (Clear) Ur Specific [place] 1.050 H (1.001-1.035) Urine Protein Trace H (Negative) Ur Leukocyte Esterase Large H (Negative) Urine RBC 8 H (0-5) /hpf Urine WBC 61 H (0-5) /hpf Ur Squamous Epith Cells 38 H (0-4) /hpf Urine Bacteria Rare H (None) /hpf Urine Mucus Few H (None) /hpf 05/12/23 05/12/23 05/12/23 Range/Units 05:54 05:54 07:15 Hgb 11.8 L (12.0-15.0) g/dL Hct 36.7 L (37.2-46.3) % Plt Count 130 L (140-440) X 10*3/uL Lymphocytes # 0.86 L (0.90-5.00) X 10*3/uL Eosinophils # 0.46 H (0.04-0.35) X 10*3/uL Est GFR (CKD-EPI) 40 L (>=60) Glucose 136 H (70-110) mg/dL POC Glucose (mg/dL) 129 H (70-110) mg/dL Hemoglobin A1c (<=6.0) % Urine Appearance (Clear) Ur Specific [place] (1.001-1.035) Urine Protein (Negative) Ur Leukocyte Esterase (Negative) Urine RBC (0-5) /hpf Urine WBC (0-5) /hpf Ur Squamous Epith Cells (0-4) /hpf Urine Bacteria (None) /hpf Urine Mucus (None) /hpf 05/12/23 Range/Units 11:51 Hgb (12.0-15.0) g/dL Hct (37.2-46.3) % Plt Count (140-440) X 10*3/uL Lymphocytes # (0.90-5.00) X 10*3/uL Eosinophils # (0.04-0.35) X 10*3/uL Est GFR (CKD-EPI) (>=60) Glucose (70-110) mg/dL POC Glucose (mg/dL) 218 H (70-110) mg/dL Hemoglobin A1c (<=6.0) % Urine Appearance (Clear) Ur Specific [place] (1.001-1.035) Urine Protein (Negative) Ur Leukocyte Esterase (Negative) Urine RBC (0-5) /hpf Urine WBC (0-5) /hpf Ur Squamous Epith Cells (0-4) /hpf Urine Bacteria (None) /hpf Urine Mucus (None) /hpf Assessment and Plan Plan: Acute dehydration, secondary to diminished oral intake along with nausea and emesis and diarrhea, currently under investigation clinically improving Acute kidney injury secondary to above, receiving IV hydration Acute hypoxic respiratory failure and patient is currently on 2 L of oxygen by nasal cannula Mediastinal lymphadenopathy, a chronic finding that dates back to 2019. The patient has been extensively evaluated. The patient underwent bronchoscopy and transbronchial biopsies back in 2019 and the patient was found to have no nnecrotizing granulomatous changes consistent with sarcoidosis. This was a diagnosis of exclusion. Infectious agents were essentially ruled out and this includes atypical and typical mycobacterial organisms and fungal elements. Histoplasma titers were negative. The patient had serial CAT scans and this included the most recent CAT scan of the chest that was done during this current admission and this was compared to the earlier CAT scan from 01/29/2021 and the findings in terms of the mediastinal lymph nodes have been essentially stable. Right-sided pleural effusion with previous thoracentesis indicating a transudate Cerebral artery aneurysm coiling hospitalized back in 2017 and this procedure was done in [facility] Chronic dyspnea on exertion secondary to above Diabetes mellitus type 2 Previous history of CVA and an episode of TIA that occurred in 2022 Colonic diverticulosis Glucoma Suspected UTI Plan Diarrhea workup.stool for C. difficile has been negative Consider urine tract infection. Awaiting input from the medical group. Currently covered with empiric an tibiotics. Pulmonary findings are essentially stable at this point in time. The mediastinal lymph nodes and pleural effusion are essentially stable. Wean FiO2 the patient is currently on 2 L
[2023-05-12 17:10] LABS: Glucose,Whole Blood 260 mg/dL (70-110)
[2023-05-12] MEDS ORDERED: ONDANSETRON 4 MG/2 ML VIAL IVP PRN (18:53)
--- NOTE | 2023-05-12 19:01 | P.PN ---
Subjective Progress Note Date: 05/12/23 Patient is a 72-year-old female with a past medical history of CVA/TIA with left-sided numbness in 2022, diabetes type 2 insulin-dependent, history of brain aneurysm s/p repair with coil and stents, glaucoma, migraine headaches and osteoarthritis was sent to ER from her PCPs office due to complaints of generalized weakness for the past 3 weeks and patient has not been eating well. She has been having nausea and episodes of vomiting. She states that she has been getting weaker and weaker even though nausea vomiting did improve but she still having diarrhea for the past 1 week. Patient otherwise denies any complaints of chest pain. Denies any worsening shortness of breath.. No cough or congestion. Denies any leg swelling. Patient was also complaining of lower abdominal discomfort. Denies dysuria or hematuria. Patient does have history of mediastinal and right hilar lymphadenopathy and p revious history of right-sided thoracentesis about 4 years ago. Patient was on follow-up with Dr. Gold as an outpatient. Chest x-ray showed right-sided consolidation with pleural effusion correlate for CHF otherwise considered pneumonia. Patient does have right-sided consolidation and small effusion with interstitial pattern. Elevated right hemidiaphragm. EKG showed sinus rhythm. CTA chest was done due to elevated D-dimer level showed no evidence of PE. Essentially no change in the bilateral pleural effusions, small on on the left and large on the right. No change in the mediastinal lymphadenopathy and bilateral hilar adenopathy. Diffuse groundglass density in the left lung less s evere than that seen on the prior study. Laboratory data showed WBC 8.3 hemoglobin 14.7 platelets 176 D-dimer 1.82 ABG showed pH 7.44, p CO2 45 and pO2 59 Sodium 138 potassium 4.2 chloride 103 bicarb is 26 BUN 29 creatinine 1.62 and blood sugar 141, calcium 10.4 Liver enzymes are not elevated. Lipase level 615 Urinalysis showed colorless cloudy large leukocyte esterase with elevated RBCs 8 and WBC 61 and squamous epithelial cells 38. Influenza AB RSV and COVID-19 PCR not detected. Patient had screening colonoscopy February 2023. 05/12/2023 Patient is seen and evaluated in follow-up today and reports to feeling much improved. Patient is continued on 2 L via nasal cannula and attempting to wean FiO2 as tolerated. Pulmonary following with no plans on thoracentesis at this time. Patient appears hypovolemic given multiple episodes of diarrhea and will give gentle IV hydration of normal saline as patient also had an acute kidney injury. Patient's kidney functions are improving and patient is maintained on ceftriaxone with concerns of possible urinary tract infection. Patient denies any pain with burning or frequency with urination. C. difficile was negative and patient reports diarrhea is improving. Patient reports her diet is improving and was able to eat more today and tolerate than she has in a week. Patient is asking when she can go home. Encouraged to increase activity as tolerated and weaning FiO2. Currently awaiting urine cultures. Review of systems: Constitutional: No reports of fatigue, fever, or chills Cardiovascular: No reports of chest pain or palpitations Respiratory: reports of shortness of breath with no worsening GI: No reports of nausea, vomiting, reports diarrhea is improving : No reports of dysuria or retention Neurovascular: reports of generalized weakness All medications have been reviewed PHYSICAL EXAMINATION: Patient is sitting up in the bed comfortably, no acute distress, awake alert and oriented.. Well-developed, well-nourished, elderly appearing HEENT: Normocephalic. Neck is supple. Pupils reactive. Nostrils clear. Oral cav ity is moist. Neck reveals no JVD, carotid bruits, or thyromegaly. CHEST EXAMINATION: Trachea is central. Symmetrical expansion. No wheezing. Right basilar crackles. Nonlabored breathing. CARDIAC: Normal S1, S2 with no gallops. Systolic murmur ABDOMEN: Soft. Nontender. Bowel sounds normal. No organomegaly. No abdominal bruits. Extremities: reveal no edema. No clubbing or cyanosis Neurologically awake, alert, oriented x3 with well-coordinated movements. No focal deficits noted Skin: No rash or skin lesions. Psychiatric: Cooperative. Non-suicidal Musculoskeletal: No joint swelling or deformity. Normal range of motion. Assessment: Acute hypoxemic respiratory failure requiring 2 L via nasal cannula likely due to large right-sided pleural effusion. Unchanged from previous study as per CTA chest. Acute diarrhea x 1 week and recent history of nausea and vomiting and unable to tolerate oral diet. Likely acute gastritis Acute kidney injury likely prerenal. Secondary to volume loss and dehydration, improving Possible acute urinary tract infection, present on admission. Currently awaiting urine cultures maintained on ceftriaxone History of mediastinal and right hilar lymphadenopathy. Patient had prior bronchoscopy and biopsy and also had a right-sided pleural effusion s/p thoracentesis about 4 years ago. Fluid analysis was transudative. Patient is on follow-up with pulmonary as an outpatient. History of CVA/TIA with left-sided numbness in June 2022 suspected thalamic ischemic CVA. History of cerebral aneurysm status post coil and stent placement Hyperglycemia with uncontrolled diabetes type 2 insulin-dependent Osteoarthritis Glaucoma History of migraine headaches GI and DVT prophylaxis Plan: Patient will be continued on IV hydration with normal saline. Symptomatic management for the nausea and stool studies including C. difficile PCR was ordered. C. difficile was negative and patient is on Imodium reports improving and diarrhea and nausea has subsided. Kidney functions are improving and will continue IV hydration with repeat labs Patient is continued on antibiotics in the form of ceftriaxone and currently awaiting urine culture results Plavix is being resumed as there are no plans for thoracentesis at this time per pulmonary Continue with insulin regimen and titrate dose as needed. Patient will be continued on statins, metoprolol and enalapril is on hold due to acute kidney injury. Repeat labs ordered for a.m. Await urine culture results. Wean FiO2 as tolerated as patient does not wear oxygen outpatient Encouraged to increase activity as tolerated Patient is extremely anxious and wanting to go home but agreeable to await repeat labs in the a.m. and urine cultures Due to multiple complex medical issues, prognosis is guarded The impression and plan of care has been dictated by Joanna Minor, Nurse Practitioner as directed. Dr. Silvestre MD I have performed a history and examination and MDM of this patient, discussed the same with the dictator, and agree with the dictator's assessment and plan as written ,documented as a scribe. Based on total visit time, I have performed more than 50% of the visit. Objective - Vital Signs Vital signs: Vital Signs Temp 97.6 F 05/12/23 07:17 Pulse 78 05/12/23 07:17 Resp 20 05/12/23 07:17 BP 145/73 05/12/23 07:17 Pulse Ox 96 05/12/23 07:17 FiO2 Intake & Output 05/11/23 05/12/23 05/12/23 18:59 06:59 18:59 Intake Total 590 Balance 590 Weight 67.132 kg 67.132 kg Intake: Oral 590 Other: Voiding Method Toilet # Voids 2 1 # Bowel Movements 1 1 - Labs CBC & Chem 7: 05/12/23 05:54 05/12/23 05:54 Labs: Abnormal Lab Results - Last 24 Hours (Table) 05/11/23 05/11/23 05/11/23 Range/Units 12:39 12:39 12:39 PT 12.6 H (10.0-12.5) sec INR 1.2 H (<1.2) D-Dimer 1.82 H (<0.60) mg/L FEU ABG pO2 (83-108) mmHg ABG HCO3 (21-25) mmol/L ABG Total CO2 (19-24) mmol/L ABG O2 Saturation (94-97) % BUN 29 H (7-17) mg/dL Creatinine 1.62 H (0.52-1.04) mg/dL Glucose 141 H (74-99) mg/dL POC Glucose (mg/dL) (70-110) mg/dL Calcium 10.4 H (8.4-10.2) mg/dL Lipase 615 H (23-300) U/L Urine Appearance (Clear) Ur Specific [place] (1.001-1.035) Urine Protein (Negative) Ur Leukocyte Esterase (Negative) Urine RBC (0-5) /hpf Urine WBC (0-5) /hpf Ur Squamous Epith Cells (0-4) /hpf Urine Bacteria (None) /hpf Urine Mucus (None) /hpf 05/11/23 05/11/23 05/11/23 Range/Units 13:20 16:49 22:33 PT (10.0-12.5) sec INR (<1.2) D-Dimer (<0.60) mg/L FEU ABG pO2 59 L* (83-108) mmHg ABG HCO3 31 H (21-25) mmol/L ABG Total CO2 32 H (19-24) mmol/L ABG O2 Saturation 90.9 L (94-97) % BUN (7-17) mg/dL Creatinine (0.52-1.04) mg/dL Glucose (74-99) mg/dL POC Glucose (mg/dL) 151 H (70-110) mg/dL Calcium (8.4-10.2) mg/dL Lipase (23-300) U/L Urine Appearance Cloudy H (Clear) Ur Specific [place] 1.050 H (1.001-1.035) Urine Protein Trace H (Negative) Ur Leukocyte Esterase Large H (Negative) Urine RBC 8 H (0-5) /hpf Urine WBC 61 H (0-5) /hpf Ur Squamous Epith Cells 38 H (0-4) /hpf Urine Bacteria Rare H (None) /hpf Urine Mucus Few H (None) /hpf 05/12/23 Range/Units 07:15 PT (10.0-12.5) sec INR (<1.2) D-Dimer (<0.60) mg/L FEU ABG pO2 (83-108) mmHg ABG HCO3 (21-25) mmol/L ABG Total CO2 (19-24) mmol/L ABG O2 Saturation (94-97) % BUN (7-17) mg/dL Creatinine (0.52-1.04) mg/dL Glucose (74-99) mg/dL POC Glucose (mg/dL) 129 H (70-110) mg/dL Calcium (8.4-10.2) mg/dL Lipase (23-300) U/L Urine Appearance (Clear) Ur Specific [place] (1.001-1.035) Urine Protein (Negative) Ur Leukocyte Esterase (Negative) Urine RBC (0-5) /hpf Urine WBC (0-5) /hpf Ur Squamous Epith Cells (0-4) /hpf Urine Bacteria (None) /hpf Urine Mucus (None) /hpf
[2023-05-12 20:06] LABS: Glucose,Whole Blood 227 mg/dL (70-110)
[2023-05-12] MEDS: INSULIN DETEMIR (LEVEMIR) 100 UNIT/ML SYR SQ SCH (21:22)
--- NOTE | 2023-05-12 22:38 | CA ---
Transthoracic Echo Report Name: Simran Lala Age: 72 Gender: F : 1950 Exam Date: 05/12/2023 08:08 Exam Location: [facility] Ht (in): 61 Wt (lb): 148 Ordering Physician: Rigoberto Toth MD Attending/Referring Phys: Loading Unit Tool Setter Lali Bishop RDCS Procedure CPT: Indications: dyspnea Cardiac Hx: Technical Quality: Fair Contrast 1: Total Dose (mL): Contrast 2: Total Dose (mL): MEASUREMENTS (Male / Female) Normal Values 2D ECHO LV Diastolic Diameter PLAX 4.0 cm 4.2 - 5.9 / 3.9 - 5.3 cm LV Systolic Diameter PLAX 2.5 cm IVS Diastolic Thickness 0.9 cm 0.6 - 1.0 / 0.6 - 0.9 cm LVPW Diastolic Thickness 0.9 cm 0.6 - 1.0 / 0.6 - 0.9 cm LV Relative Wall Thickness 0.4 RV Internal Dim ED PLAX 2.4 cm LA Systolic Diameter LX 3.0 cm 3.0 - 4.0 / 2.7 - 3.8 cm LV Diastolic Volume MOD BP 59.3 cm??? 67 - 155 / 56 - 104 cm??? LV Systolic Volume MOD BP 17.6 cm??? 22 - 58 / 19 - 49 cm??? LV Ejection Fraction MOD BP 70.3 % >= 55 % LV Cardiac Index MOD BP 2327.4 cm???/min???m??? LV Diastolic Volume MOD 4C 57.6 cm??? LV Systolic Volume MOD 4C 24.3 cm??? LV Ejection Fraction MOD 4C 57.9 % LV Cardiac Index MOD 4C 1862.0 cm???/min???m??? LV Diastolic Length 4C 7.0 cm LV Systolic Length 4C 5.6 cm LV Diastolic Volume MOD 2C 64.3 cm??? LV Systolic Volume MOD 2C 19.0 cm??? LV Ejection Fraction MOD 2C 70.5 % LV Cardiac Index MOD 2C 2531.2 cm???/min???m??? LV Diastolic Length 2C 6.7 cm LV Systolic Length 2C 5.3 cm LA Volume 36.3 cm??? 18 - 58 / 22 - 52 cm??? LA Volume Index 21.1 cm???/m??? 16 - 28 cm???/m??? M-MODE Aortic Root Diameter MM 2.6 cm AV Cusp Separation MM 1.9 cm DOPPLER AV Peak Velocity 134.5 cm/s AV Peak Gradient 7.2 mmHg MV Area PHT 3.3 cm??? Mitral E Point Velocity 111.1 cm/s Mitral A Point Velocity 126.2 cm/s Mitral E to A Ratio 0.9 MV Deceleration Time 231.0 ms LV E' Lateral Velocity 7.9 cm/s Mitral E to LV E' Lateral Ratio 14.1 LV E' Septal Velocity 4.5 cm/s Mitral E to LV E' Septal Ratio 24.6 TR Peak Velocity 256.1 cm/s TR Peak Gradient 26.2 mmHg Right Ventricular Systolic Press 31.2 mmHg FINDINGS Left Ventricle Left ventricular ejection fraction is estimated at 55-60 %. Left ventricular cavity size normal. Left ventricular wall thickness normal. Right Ventricle Normal right ventricular size. Right ventricular systolic pressure within normal limits. Right Atrium Normal right atrial size. Left Atrium Normal left atrial size. Mitral Valve Structurally normal mitral valve. Trace to mild mitral regurgitation. Mild mitral annular calcification. Aortic Valve Trileaflet aortic valve. No aortic valve stenosis or regurgitation. Tricuspid Valve Structurally normal tricuspid valve. Mild tricuspid regurgitation. Pulmonic Valve Structurally normal pulmonic valve. Mild pulmonic regurgitation. Pericardium Large pleural effusion. No pericardial effusion Aorta Normal size aortic root and proximal ascending aorta. CONCLUSIONS Left ventricular ejection fraction is estimated at 55-60 %. No obvious regional wall motion abnormality Grade 1 diastolic dysfunction Mild MR, mild mitral annular calcification No other significant valvular dysfunction No pericardial effusion. Left Pleural effusion noted Previewed by: Dr Darin Epperson (Electronically Signed) Final Date: 12 May 2023 22:37
[2023-05-13 07:18] LABS: Glucose,Whole Blood 139 mg/dL (70-110)
[2023-05-13 08:48] VITALS: TEMP 97.9
[2023-05-13 09:47] LABS: Basophils # (A) 0.05 X 10*3/uL (0.00-0.10); Basophils % (A) 0.9 %; Eosinophils % (A) 10.9 %; HCT 38.3 % (37.2-46.3); HGB 12.6 g/dL (12.0-15.0); Lymphocytes # (A) 1.14 X 10*3/uL (0.90-5.00); Lymphocytes % (A) 20.8 %; MCH 29.4 pg (27.0-32.0); MCHC 32.9 g/dL (32.0-37.0); MCV 89.3 FL (80.0-97.0); Mean Platelet Volume 10.4 FL (9.5-12.2); Monocytes % (A) 14.6 %; NRBC Per 100 WBC 0 X 10*3/uL (0.00-0.01); Neutrophils # (A) 2.88 X 10*3/uL (1.80-7.70); Neutrophils % (A) 52.6 %; Platelet Count 142 X 10*3/uL (140-440); RBC 4.29 X 10*6/uL (4.10-5.20); RDW 13.1 % (11.5-14.5); WBC 5.48 X 10*3/uL (4.50-10.00)
[2023-05-13 10:01] LABS: BUN/Creat Ratio 12.92 Ratio (12.00-20.00); Blood Urea Nitrogen 15.5 mg/dL (9.0-27.0); Calcium 8.2 mg/dL (8.7-10.3); Carbon Dioxide 25.8 mmol/L (21.6-31.8); Chloride 109 mmol/L (96-109); Glucose 176 mg/dL (70-110); Potassium 4.3 mmol/L (3.5-5.5); Sodium 142 mmol/L (135-145)
[2023-05-13 10:05] LABS: Magnesium 0.9 mg/dL (1.5-2.4)
[2023-05-13] MEDS ORDERED: Magnesium Replacement Protocol 1 EACH MISC MISCELLANE PRN (10:27)
[2023-05-13] MEDS: MAGNESIUM SULFATE-D5W PMX 1 GM in DEXTROSE/WATER 1 100ML.BAG IVPB SCH (10:55)
[2023-05-13 12:08] LABS: Glucose,Whole Blood 279 mg/dL (70-110)
--- NOTE | 2023-05-13 12:22 | DS ---
DISCHARGE SUMMARY FINAL DIAGNOSES: 1. Acute hypoxic respiratory failure, multifactorial, including chronic obstructive pulmonary disease with pleural effusion 2. Dehydration, reviewed. 3. Diarrhea history. 4. History of urinary tract infection, recent. 5. History of cerebrovascular accident, transient ischemic attack. 6. Multiple medical issues. DISCHARGE DISPOSITION: The patient will be discharged home in a stable and guarded prognosis. Total time 30 minutes. HISTORY OF PRESENT ILLNESS: This 72-year-old woman was admitted with multiple complex medical issues, was treated symptomatically. The patient had significant pleural effusion which was compared with previous one by Dr. Gold. Recommended continued followup, and the patient pulse ox was 87% on room air. The patient required home O2 for acute on chronic hypoxic respiratory failure. The etiology could be multifactorial including COPD as well as pleural effusion and mediastinal lymphadenopathy. A 2D echo showed ejection fraction 50% to 60%. PHYSICAL EXAMINATION: VITAL SIGNS: Stable. CARDIOVASCULAR: S1, S2. RESPIRATORY: Few scattered rhonchi. ABDOMEN: Soft. NERVOUS SYSTEM: Nonfocal. LABORATORY DATA: Reviewed. The patient hypomagnesemia needed correction. DISCHARGE MEDICATIONS: Continue the home medications. Add Lomotil and Combivent 2 puffs q.i.d. and p.r.n. Follow up with Dr. Lance and Dr. Gold as recommended. The patient and family are keen on going home. See orders for further details. The patient needs outpatient continued followup. MMODL / IJN: [id number] / MTDD
[2023-05-13 13:25] VITALS: BP 122/68; PULSE 80; RESP 18
== END 2023-05-13 17:01 | disposition home or self-care (01) | DRG 189 ==
LOC: EC 12:15 → 5NMEDONC 17:12
PROVIDERS: ADMIT Internal Medicine; ATTEND Internal Medicine
DX: J96.21 Acute and chronic respiratory failure with hypoxia (principal); N17.9 Acute kidney failure, unspecified; J90 Pleural effusion, not elsewhere classified; J98.11 Atelectasis; J44.9 Chronic obstructive pulmonary disease, unspecified; E86.0 Dehydration; E11.65 Type 2 diabetes mellitus with hyperglycemia; Z79.4 Long term (current) use of insulin; Z28.310 Unvaccinated for COVID-19; E86.1 Hypovolemia; K57.30 Diverticulosis of large intestine without perforation or abscess without bleeding; K29.00 Acute gastritis without bleeding; M19.90 Unspecified osteoarthritis, unspecified site; R31.9 Hematuria, unspecified; H40.9 Unspecified glaucoma; R35.0 Frequency of micturition; R59.0 Localized enlarged lymph nodes; Z79.02 Long term (current) use of antithrombotics/antiplatelets; Z79.84 Long term (current) use of oral hypoglycemic drugs; Z79.899 Other long term (current) drug therapy; Z86.79 Personal history of other diseases of the circulatory system; Z86.73 Personal history of transient ischemic attack (TIA), and cerebral infarction without residual deficits; Z87.440 Personal history of urinary (tract) infections
CPT/HCPCS: 36415; 36600; 71046; 71275; 80048; 80053; 81001; 82805; 83036; 83605; 83690; 83735; 84484; 85025; 85379; 85610; 85730; 87045; 87046; 87086; 87324; 87636; 93005; 93306; 94760; 96361; 96374; 99285

== ENCOUNTER → 2023-05-15 | Outpatient (CLI) | payer MEDICARE ==
[2023-05-15 18:48] LABS: Basophils # (A) 0.04 X 10*3/uL (0.00-0.10); Basophils % (A) 0.5 %; Eosinophils % (A) 5.8 %; HCT 42.4 % (37.2-46.3); HGB 13.9 g/dL (12.0-15.0); Lymphocytes # (A) 1.35 X 10*3/uL (0.90-5.00); Lymphocytes % (A) 15.7 %; MCH 29.1 pg (27.0-32.0); MCHC 32.8 g/dL (32.0-37.0); MCV 88.9 FL (80.0-97.0); Mean Platelet Volume 10.5 FL (9.5-12.2); Monocytes # (A) 0.84 X 10*3/uL (0.20-1.00); Monocytes % (A) 9.8 %; NRBC Per 100 WBC 0 X 10*3/uL (0.00-0.01); Neutrophils # (A) 5.83 X 10*3/uL (1.80-7.70); Neutrophils % (A) 67.9 %; Platelet Count 190 X 10*3/uL (140-440); RBC 4.77 X 10*6/uL (4.10-5.20); RDW 13.4 % (11.5-14.5); WBC 8.59 X 10*3/uL (4.50-10.00)
[2023-05-15 22:32] LABS: BUN/Creat Ratio 14.31 Ratio (12.00-20.00); Blood Urea Nitrogen 18.6 mg/dL (9.0-27.0); Chloride 106 mmol/L (96-109); Glucose 228 mg/dL (70-110); Magnesium 1.5 mg/dL (1.5-2.4); Potassium 5.6 mmol/L (3.5-5.5); Sodium 144 mmol/L (135-145)
[2023-05-15 22:33] LABS: Calcium 10.6 mg/dL (8.7-10.3); Carbon Dioxide 26.6 mmol/L (21.6-31.8)
== END | disposition home or self-care (01) ==
LOC: LABWHC1 13:14
PROVIDERS: ATTEND Hospitalist
DX: D64.9 Anemia, unspecified (principal)
CPT/HCPCS: 36415; 80048; 83735; 85025

== ENCOUNTER → 2024-01-26 | Outpatient (CLI) | payer MEDICARE ==
--- NOTE | 2024-01-26 11:30 | XR ---
EXAMINATION TYPE: XR foot complete RT DATE OF EXAM: 01/26/2024 10:47 AM COMPARISON: None CLINICAL INDICATION: Female, 73 years old with history of M79.674 PAIN IN RIGHT TOE(S), pain TECHNIQUE: XR foot complete RT examined in the AP, oblique, and lateral projections. FINDINGS: No evidence of any acute osseous pathology. Calcaneal plantar spurring is present. Multifocal degener ation changes throughout the joints of the foot with osteophyte formation and joint space narrowing. IMPRESSION: 1. No evidence of acute fracture. 2. Mild degeneration changes of the joints of the foot. 3. Atherosclerosis of the arterial vascular. [facility], , 01/26/2024 11:27 AM
== END | disposition home or self-care (01) ==
LOC: RADXRMAIN 10:25
PROVIDERS: ATTEND Family Medicine
DX: M19.071 Primary osteoarthritis, right ankle and foot (principal)